=== PATIENT | male | born 1995 | race Caucasian/White ===

== ENCOUNTER → 2024-04-15 | Outpatient (CLI) | payer OTHER, SELFPAY ==
--- NOTE | 2024-04-15 07:22 | MRI_ITS ---
STUDY: MRI BRAIN WITH AND WITHOUT CONTRAST (ATTENTION INTERNAL AUDITORY CANALS - I.A.C.''s) REASON FOR EXAM: Male, 29 years old. [place]. ATTN: IAC TECHNIQUE: Standardized multiplanar fat and water weighted pulse sequences were obtained. 18 ML IV CLARISCAN was administered for the contrast portion of the examination. COMPARISON: None. FINDINGS: Normal bilateral temporal bones. Normal bilateral internal auditory canals. There is no demonstrated intracanalicular or cisternal vestibular schwannoma (acoustic neuroma). There is no enhancement of the bilateral VIIth or VIIIth cranial nerves. Normal bilateral cochlea, vestibules and semicircular canals. Normal size of the ventricles and extra-axial spaces for the patient''s age. Normal white matter tracts of the supratentorial brain. Normal bilateral basal ganglia. Normal thalami. Normal flow voids within the major intracranial circulation suggesting patency by spin echo criteria. Normal venous enhancement. There is no enhancing intra-axial or extra-axial abnormality. There is no extra-axial fluid accumulation. Normal sella turcica, pituitary gland, infundibular stalk, optic chiasm and hypothalamus. Normal tectal plate and pineal gland. Normal midbrain, marco and medulla. Normal cerebellum. Normal basal cisterns. No demonstrated orbital abnormality, within the constraints of a routine brain study. Normal visualized paranasal sinuses. Normal calvarium and skull base. Normal visualized soft tissue structures. Normal visualized upper cervical spine. MRI/Brain W/WO Contrast IMPRESSION: Normal unenhanced and enhanced MRI of the brain and bilateral internal auditory canals (I.A.C''s). Electronically Signed: Wally Benitez MD at 8:37 EDT ,
== END | disposition home or self-care (01) ==
PROVIDERS: Referring Provider Otolaryngology Otolaryngology/Facial Plastic Surgery; Visit Provider Otolaryngology Otolaryngology/Facial Plastic Surgery
DX: R27.0 Ataxia, unspecified (principal)
CPT/HCPCS: 70553; A9575

== ENCOUNTER → 2024-08-10 | Outpatient (CLI) | payer OTHER, SELFPAY ==
--- NOTE | 2024-08-10 16:28 | RAD_ITS ---
INDICATION: BACK PAIN EXAMINATION/TECHNIQUE: X-RAY - XR Spine Thoracic 2 Views COMPARISON: No relevant prior comparison study available FINDINGS: VERTEBRAE: Preserved vertebral body height. No fracture. No spondylolisthesis. Preservation of the normal thoracic kyphosis. Mild dextroscoliosis. DISCS: Disc spaces are maintained. INCLUDED CHEST/ABDOMEN: No acute abnormalities. RAD/Thoracic Spine 2 Views IMPRESSION: Dextroscoliosis of the thoracic spine. Electronically Signed: Armani Hercules MD at 13:26 EDT ,
--- NOTE | 2024-08-10 16:50 | RAD_ITS ---
INDICATION: neck pain EXAMINATION/TECHNIQUE: X-RAY - XR Spine Cervical 6 or More Views COMPARISON: No relevant prior comparison study available FINDINGS: VERTEBRAE: Preserved vertebral body height. No fracture. No spondylolisthesis. Straightening of the cervical spine. The alignment is unremarkable on the flexion and extension views. No significant facet arthropathy. DISCS: Disc spaces are maintained. NECK SOFT TISSUES: No prevertebral soft tissue widening. LUNG APICES: Clear. RAD/Cerv Spine Obl/Flex/Ext Comp IMPRESSION: Straightening of the cervical spine. Otherwise unremarkable examination.. Electronically Signed: Armani Hercules MD at 15:16 EDT ,
[2024-08-10 17:42] LABS: Absolute Lymphocyte Count 2.99 X10^3/uL (0.83-4.51); Basophil# 0.02 X10^3/uL; Basophil% 0.3 % (0-1); Eosinophil# 0.03 X10^3/uL; Eosinophils% 0.4 % (0-5); Hematocrit 41.6 % (40-54); Hemoglobin 13.7 g/dL (13.0-16.5); Lymphocyte # 2.99 X10^3/ul (0.83-4.51); Lymphocyte % 39.6 % (19-41); Mean Corp Hgb Conc 32.9 g/dL (32-36); Mean Corpuscular Hgb 29.8 pg (27.0-32.0); Mean Corpuscular Volume 90.6 fL (80-94); Mean Platelet Vol. 10.3 fl (6.2-12.0); Monocyte# 0.49 X10^3/uL; Monocyte% 6.5 % (0-10); NRBC Flagged by Analyzer 0 % (0-5); Neutrophil # 4.01 X10^3/uL (2.7-7.7); Neutrophil % 52.9 % (47-70); Platelet Count 241 K/mm3 (150-450); RBC Distribution Width CV 11.9 % (11.6-14.6); RBC Distribution Width SD 39.7 fl (35.1-43.9); Red Blood Count 4.59 M/mm3 (4.6-6.2); White Blood Count 7.6 K/mm3 (4.4-11.0)
[2024-08-10 18:15] LABS: Vitamin D,25 Hydroxy 25.7 ng/mL
[2024-08-10 18:23] LABS: ALB/GLOB Ratio 1.4 RATIO (0.9-2.4); AST(SGOT) 16 U/L (15-37); Alanine Aminotransfer ALT/SGPT 18 U/L (16-61); Albumin, Serum 4.2 g/dL (3.2-5.0); Alkaline Phosphatase 59 U/L (45-117); Anion Gap 5 (5-15); BUN 15 mg/dL (7-18); Chloride 108 mmol/L (98-107); Creatinine, Serum 1.07 mg/dL (0.70-1.30); EST Glomerular Filtration Rate 86 mL/min (>60); Est Glom Filt Rate - Afr Amer 103 mL/min (>60); Globulin 3.1 g/dL (2.2-4.2); Glucose 98 mg/dL (74-106); Potassium 3.7 mmol/L (3.5-5.1); Protein, Total 7.3 g/dL (6.4-8.2); Sodium Level 140 mmol/L (136-145)
== END | disposition home or self-care (01) ==
PROVIDERS: PCP Family Medicine; Referring Provider Family Medicine; Visit Provider Family Medicine
DX: M54.2 Cervicalgia (principal); M54.6 Pain in thoracic spine; R53.83 Other fatigue
CPT/HCPCS: 36415; 72052; 72070; 80053; 82306; 84443; 85025

== ENCOUNTER → 2024-08-16 | Outpatient (CLI) | payer OTHER, SELFPAY ==
[2024-08-18 14:09] LABS: Lyme Scn Total Ab w/Rflx Negative (Negative)
== END | disposition home or self-care (01) ==
LOC: MFPLAB 16:48
PROVIDERS: PCP Family Medicine; Referring Provider Family Medicine; Visit Provider Family Medicine
DX: T14.8XXA Other injury of unspecified body region, initial encounter (principal); W57.XXXA Bitten or stung by nonvenomous insect and other nonvenomous arthropods, initial encounter
CPT/HCPCS: 36415; 86618

== ENCOUNTER 2024-10-11 16:00 | Outpatient (RCR) | payer OTHER, SELFPAY ==
--- NOTE | 2024-08-19 17:03 | HP.PTEVAL_ITS ---
Patient's Visit Information Visit Information Visit Information: YOLANDA HIGGINS is a 29 year old M referred to Physical Therapy by Lucia Montes MD with a diagnosis of Neck pain. Date of Evaluation: 08/19/24 Physical Therapist: Rogelio Parsons, PT, ATC Visit Plan Frequency: 2x /Week Duration: 2-4 Weeks Plan: Postural edu, DTR, retractions, scap stab ex's, and HEP Subjective Subjective: Pt reports he has had neck and upper back pain since the beginning of the year. 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 Pt reports he has been treated by a chiropractor for 3 months, but no permanent improvements. Pt reports when his pain is bad, it will make his arms go numb. Pt reports he also gets severe headaches that start in the back of his head and radiates to the frontal region. Pt reports he has had x-rays which revealed a flattened curvature of the cervical spine. Pt reports sleep difficulty at this time secondary to pain. Pt also notes his arms will feel really weak when he is in a lot of pain. Pt reports he will get light headed and dizzy when his pain is bad. 5/10 pain at rest, 8/10 pain at worst Pain Neck pain: Pain Intensity (Out of 10): 5 Pain Intensity Range: 8 Objective Objective: Neuro: B UE sensation is WNL to light touch. B biceps reflex= 2/3 MMT: B UE's are grossly 4/5 throughout ROM: Pt has minimal limitations with retraction and extension. All other ROM is WFL. Repeated movements: protraction 10x3 increased pain. Retraction 10x3 NE Balance/Special Test Scores Oswestry Neck Score: 22 Goals Goal 1:: Decrease neck pain x 50% to aid with sleep Goal Time Frame: 4-6 Weeks Goal 2:: Increase cervical spine retraction ROM to WNL to aid with IADL's Goal Time Frame: 4-6 Weeks Goal 3:: Increase B UE strength x 1 grade to aid with work requirements Goal Time Frame: 4-6 Weeks Goal 4:: I with HEP Goal Time Frame: 4-6 Weeks Rehabilitation Potential Physical Therapy Diagnosis: Pt has neck pain, limited c/s ROM, and B UE radiculopathy secondary to cervical spine derangement Rehabilitation Potential: Good Anticipated Interventions Patient/Client Instruction: Educate patient on: Condition and Plan of Care For the Purpose of:: To improve self management Therapeutic Exercise to Include: Strength training, Postural training, Active ROM, Sindhu Exercises and Scapular Strength/Stabilization For the Purpose of:: To decrease pain, To increase ROM and To improve muscle performance and motor function Manual Therapy Techniques to Include: Soft tissue mobilization For the Purpose of:: To decrease pain Text: Thank you for the opportunity to evaluate your patient. For Medicare and Medicare HMO plans, please review the plan of care and approve it. It will need to be FAXED BACK to us at [phone] for Medicare purposes. For Medicare only, by signing this I certify the plan of care. Please let me know if there are questions or concerns regarding this plan of care. Physician Signature: Date:
--- NOTE | 2024-11-29 09:55 | HP.PT.NRP ---
Patient Information Patient Information: YOLANDA HIGGINS was seen in my office for initial evaluation on 08/19/24. The following Plan of Care was established for this patient: POC Established Initial Frequency: 2x /Week Initial Duration: 2-4 Weeks Anticipated Interventions Patient/Client Instruction: Educate patient on: Condition and Plan of Care For the Purpose of:: To improve self management Therapeutic Exercise to Include: Strength training, Postural training, Active ROM, Sindhu Exercises and Scapular Strength/Stabilization For the Purpose of:: To decrease pain, To increase ROM and To improve muscle performance and motor function Manual Therapy Techniques to Include: Soft tissue mobilization For the Purpose of:: To decrease pain Last Seen Last Seen: This patient was last seen in our office . Pertinent comments regarding their Physical therapy will appear below: Pt has not returned to physical therapy for greater than 30 days. Discontinue at this time. At this point I will be discontinuing this patient from physical therapy. I would be happy to see this patient again in the future if found appropriate by the physician. Thank you! Rogelio Parsons, PT, ATC Balance/Gait/Functional tests Balance/Special Test Scores Oswestry Neck Score: 22
== END 2024-10-11 19:00 | disposition home or self-care (01) ==
LOC: PT 16:00
PROVIDERS: PCP Family Medicine; Referring Provider Family Medicine; Visit Provider Family Medicine
DX: M54.2 Cervicalgia (principal)
CPT/HCPCS: 97035; 97110; 97140; 97161; 97530

== ENCOUNTER 2024-10-14 15:05 | Outpatient (CLI) | payer OTHER, SELFPAY ==
[2024-10-14 18:01] LABS: Vitamin D,25 Hydroxy 53.5 ng/mL
== END 2024-10-14 23:59 | disposition home or self-care (01) ==
LOC: MFPLAB 15:07
PROVIDERS: PCP Family Medicine; Referring Provider Family Medicine; Visit Provider Family Medicine
DX: R53.83 Other fatigue (principal)
CPT/HCPCS: 36415; 82306; 84403

== ENCOUNTER → 2024-11-03 | Outpatient (CLI) | payer OTHER, SELFPAY ==
--- NOTE | 2024-11-03 13:05 | NEURO ---
NCS and/or EMG Patient Report Ordering Doctor: Lucia Montes DATE OF SERVICE: 11/03/24 Olman presents electrodiagnostic testing of the right upper limb. He reports numbness and tingling in the right hand. Electrodiagnostic findings: Right median motor nerve demonstrates prolonged latency with normal amplitude and conduction velocity. Normal right ulnar motor response, including conduction across the elbow. Normal right median and right ulnar F?wave. Prolonged right median sensory latency at the wrist. Needle EMG testing was performed in the right upper limb. All muscles tested showed no evidence of denervation with normal motor unit action potentials. Electrodiagnostic impression: This is an abnormal study. 1. Electrodiagnostic findings suggestive of a right-sided median mononeuropathy. This is consistent with a mild right carpal tunnel syndrome. 2. Electrodiagnostic evidence is noted for cervical radiculopathy. Multi Select Codes Neurology Neurology Interp Codes: 89823-71 Musc test done w/n test comp (interp) and 28805-18 Nrv cndj tst 5-6 studies (interp)
== END | disposition home or self-care (01) ==
PROVIDERS: PCP Family Medicine; Referring Provider Family Medicine; Visit Provider Family Medicine
DX: M54.2 Cervicalgia (principal)
CPT/HCPCS: 95886; 95909

== ENCOUNTER → 2025-02-24 | Outpatient (CLI) | payer OTHER, SELFPAY ==
--- NOTE | 2025-02-24 06:17 | CT_ITS ---
PROCEDURE: SINUS/FACIAL BONE REASON FOR EXAM: SINUSITIS TECHNIQUE: CT of the paranasal sinuses without contrast. Coronal and Sagittal reconstruction series were provided. One or more dose reduction techniques were used (e.g., Automated exposure control, adjustment of the mA and/or kV according to patient size, use of iterative reconstruction technique). COMPARISON: None. FINDINGS: The paranasal sinuses appear well formed without wall thickening or sclerosis. A single thin synechia within the upper right and left maxillary sinuses. The paranasal sinuses otherwise are clear without mucoperiosteal thickening or air-fluid levels. Bilateral ostiomeatal complex, frontoethmoidal and sphenoethmoidal recesses are clear. No significant nasal septal deviation. The turbinates appear within limits. The orbits appear within limits. Infra temporal fossa fat appears preserved. Bilateral pterygopalatine foramen appear within limits. Bilateral fossa of Rosenmuller appears symmetric. The mastoids, middle ears and internal auditory canals appear within limits. TMJs appear normally located. CT/Sinus/Facial Bone IMPRESSION: No significant appearing sinus disease as above. Reading Location: [id number]
== END | disposition home or self-care (01) ==
LOC: CT 06:15
PROVIDERS: PCP Family Medicine; Referring Provider Otolaryngology; Visit Provider Otolaryngology
DX: J32.8 Other chronic sinusitis (principal)
CPT/HCPCS: 70486

== ENCOUNTER → 2025-04-01 | Outpatient (CLI) | payer OTHER, SELFPAY ==
[2025-04-01 11:01] LABS: Anion Gap 11 (5-15); BUN 17 mg/dL (4-19); BUN/Creat Ratio 15.9 RATIO (10-20); Calcium,Total 9.4 mg/dL (7.6-11.0); Carbon Dioxide 23.8 mmol/L (21.0-32.0); Chloride 106 mmol/L (98-108); Creatinine, Serum 1.09 mg/dL (0.70-1.20); EST Glomerular Filtration Rate 92 (>60); Glucose 99 mg/dL (70-99); Potassium 4.5 mmol/L (3.3-5.1); Sodium Level 141 mmol/L (133-145); Vitamin D,25 Hydroxy 36.7 ng/mL (30-100)
== END | disposition home or self-care (01) ==
LOC: MFPLAB 09:00
PROVIDERS: PCP Family Medicine; Referring Provider Family Medicine; Visit Provider Family Medicine
DX: R79.89 Other specified abnormal findings of blood chemistry (principal)
CPT/HCPCS: 36415; 80048; 82306

== ENCOUNTER 2025-04-23 07:07 | Outpatient (CLI) | payer OTHER, SELFPAY ==
--- OUTSIDE RECORDS SUMMARY | 2025-04-23 07:10 | XMS RPT_ITS | CCD ---
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 candidate for physical therapy and was discharged. Patient has seen a chiropractor and that made it start feeling better and stopped. He saw the chiropractor for 3 months going 2-3x per week. Patient states when his neck is flared up he is dizzy. Patient states the last week his neck and shoulder are more numb and tingling. Patient states it gets worse as the day goes on. Patient stats ice and heat does help a little. Patient is on Mobic and he don't think that its helping him. Patient is on a muscle relaxer as need and that helps but he is still having the tingling. Says that he has had issues picking up a pen and has dropped a pen out of his hand. Ortho Exam General General: Yes no acute distress Neurologic: Yes alert and Yes oriented x3 Spine SPINE TESTING CERVICAL THORACIC LUMBAR Musculoskeletal Strength 0=absent - 5=normal Details: Neurological exam of the upper extremities shows 5x5 power. Numbness of the right little finger, all other dermatomes normal. No hyperreflexia. Mary's negative. Mild midline and right paraspinal tenderness. Romberg's negative. Single leg stand shows decreased right sided balance. Coding Level of Care Code Off vis,est,level 4 Diagnoses Cervical radiculopathy M54.12 Time Spent (min) 35 Assessment and Plan Assessment and Plan (1) Cervical radiculopathy: Status: Acute Plan Again reviewed cervical MRI. MRI showed normal cervical spine. Again reviewed prior xrays which shows a lack of normal cervical lordosis. No instability on flexion/extension views. C3-4 shows slight disc degeneration with possible facet arthrosis, and possible reversal of lordosis at focused at that level. Explained imaging findings in detail. He seems to develop radicular pain going along the trapezius into the right shoulder and lateral proximal arm. Possibility of C3-4 radiculopathy was discussed. Patient is due to get trigger point ejections by Dr. Mcknight's office next week. Possibility of consideration of C3-4 epidural versus facet injection were discussed and may be considered. Patient continue with physical therapy modalities as tolerated. No surgical intervention at this time con (more content not included)... Normal [facility] Orthopedic Visit Reporton Orthopedic Visit Report [facility] [address] [place] [address] [address] [place] [address] OFFICE VISIT Date of Service: 09/15/24 MR#: [id number] Acct: [id number] Name: YOLANDA BUCK Rep #: [id number] : 1995 Provider: Dr. Rancho Fernando MD Age/Sex: 29/M Location: [facility] Status: Signed Intake Vital Signs 08/31/24 08:25 Height 6 ft Weight: 206 lb 4 oz BMI 27.9 Intake Visit Reasons: CERVICAL SPINE Accompanied by: Self Is patient in pain?: Yes Pain scale (1-10): 4 Allergies No Known Allergies Allergy (Unverified 09/15/24 08:30) Medications ???Medication ???Instructions ???Recorded ???Confirmed ???Type meloxicam 7.5 mg tablet 7.5 mg PO QDAY 08/31/24 09/15/24 History tizanidine 4 mg tablet mg PO 08/31/24 09/15/24 History PFSH Surgical History History of repair of anterior cruciate ligament of right knee Family History Father Cancer Prostate Social History household members: spouse Smoking Status: Never smoker alcohol intake: never HPI CERVICAL SPINE Details: This documentation accurately reflects the service provided and the decisions made by me, Dr. Rancho Fernando MD 09/15/24827. Part of today???s visit was documented by Bella JO , acting as scribe. YOLANDA BUCK is a 29 year old M here today for a MRI Review. Patient states the pain is about the same if not worse since the MRI. HPI from 08/31/24: YOLANDA BUCK is a 29 year old M here today for Cervical/Thoracic pain. Patient states the last 8-9 months he has been dealing with neck pain. Patient does have numbness and tingling that goes down his right arm. Patient states he does have some pain that goes down his right arm. Patient states that the numbness and tingling down his triceps to the elbow but sometimes down to his hand. Says that he will get occasional numbness and pain in his right leg as well. At night both his arms are going numb. Patient states that his shoulder and mid back (center right) is numb. No injury to his neck. Patient has never had injection in his neck and he started PT last week he did 2 sessions and it made his symptoms worse. He was told that he wasn't a good candidate for physical therapy and was discharged. Patient has seen a chiropractor and that made it start feeling better and stopped. He saw the chiropractor for 3 months going 2-3x per week. Patient states when his neck is flared up he is dizzy. Patient states the last week his neck and shoulder are more numb and tingling. Patient states it gets worse as the day goes on. Patient stats ice and heat does help a little. Patient is on Mobic and he don't think that its helping him. Patient is on a muscle relaxer as need and that helps but he is still having the tingling. Says that he has had issues picking up a pen and has dropped a pen out of his hand. Ortho Exam General General: Yes no acute distress Neurologic: Yes alert and Yes oriented x3 Spine SPINE TESTING CERVICAL THORACIC LUMBAR Musculoskeletal Strength 0=absent - 5=normal Details: Neurological exam of the upper extremities shows 5x5 power. Numbness of the right little finger, all other dermatomes normal. No hyperreflexia. Mary's negative. Mild midline and right paraspinal tenderness. Romberg's negative. Single leg stand shows decreased right sided balance. 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 MRI showed normal cervical spine. Again reviewed prior xrays which shows a lack of normal cervical lordosis. No instability on flexion/extension views. Explained imaging findings in detail. Due to the repetitive motion of his job and the numbness into his right ring finger and little finger, discussed the possibility of cubital tunnel syndrome. Rec ommend that he sleep with a sleeve or a pillow in his elbow to prevent elbow flexion at night and to use a bluetooth at work to prevent the amount of time his elbow is flexed at work when on the phone. Also recommend that he see physical therapy again to increase extensor neck strength. If after he tries the pillow or the brace for the cubital tunnel, if he continues to have numbness and tingling an EMG can be ordered at that time. Patient is established with Dr. Mcknight at pain management a (more content not included)... Normal [facility] MR C-SPINE W/Oon 09-14-2024 MR C-SPINE W/O EXAMINATION: MR C-SPINE W/O 09/14/2024 08:23 AM CLINICAL HISTORY: Cervical radicular pain. 29-year-old male with chronic cervical/thoracic pain, right arm numbness and tingling, bilateral arm numbness at night, and worsening symptoms despite physical therapy. ASSOCIATED DIAGNOSIS: Disease of spinal cord (HCC) ORDERING PROVIDER: SUZANNE [employer] NOTE: COMPARISON: None TECHNIQUE: Patient questionnaire was completed, and was reviewed by MRI personnel prior to the patient entering the scanner. Multiplanar, multisequence MR imaging of the cervical spine was performed without intravenous contrast. FINDINGS: Counting reference: Craniocervical junction. Anatomic variants: None. Alignment: Slight straightening of the usual cervical lordosis. Vertebral Body Height: Normal. Bone Marrow: No aggressive focal lesion or pathologic marrow infiltration. Cord: Normal signal intensity and morphology. Craniocervical Junction, Cervical Soft Tissues and Included Brain: Craniocervical junction and included structures of the posterior fossa are within normal limits. No dorsal paraspinous, paravertebral, or prevertebral fluid collection. C2-C3: No significant spinal canal or neural foraminal stenosis. C3-C4: No significant spinal canal or neural foraminal stenosis. C4-C5: No significant spinal canal or neural foraminal stenosis. C5-C6: No significant spinal canal or neural foraminal stenosis. C6-C7: No significant spinal canal or neural foraminal stenosis. C7-T1: No significant spinal canal or neural foraminal stenosis. IMPRESSION: Normal study. MACRO: None I have personally reviewed the images and agree with the resident's interpretation. Normal [facility] Orthopedic Visit Reporton Orthopedic Visit Report [facility] [address] [place] [id number] OFFICE VISIT Date of Service: 08/31/24 MR#: [id number] Acct: [id number] Name: YOLANDA BUCK Rep #: [id number] : 1995 Provider: PARI Hart Age/Sex: 29/M Location: [facility] Status: Signed Intake Vital Signs 08/31/24 08:25 Height 6 ft Weight: 206 lb 4 oz BMI 27.9 Intake Visit Reasons: CERVICAL/THORACIC Accompanied by: Is patient in pain?: Yes Pain scale (1-10): 4 Allergies No Known Allergies Allergy (Unverified 08/31/24 08:26) Medications ???Medication ???Instructions ???Recorded ???Confirmed ???Type meloxicam 7.5 mg tablet 7.5 mg PO QDAY 08/31/24 08/31/24 History tizanidine 4 mg tablet mg PO 08/31/24 08/31/24 History PFSH Surgical History (Updated 08/31/24 @ 08:27 by Bella Ross MA) History of repair of anterior cruciate ligament of right knee Family History (Updated 08/31/24 @ 08:28 by Bella Ross MA) Father Cancer Prostate Social History (Updated 08/31/24 @ 08:28 by Bella Ross MA) household members: spouse Smoking Status: Never smoker alcohol intake: never HPI CERVICAL/THORACIC Details: This documentation accurately reflects the service provided and the decisions made by me, PARI Hart 08/31/24 2910. Part of today???s visit was documented by Bella JO , acting as scribe. YOLANDA BUCK is a 29 year old M here today for Cervical/Thoracic pain. Patient states the last 8-9 months he has been dealing with neck pain. Patient does have numbness and tingling that goes down his right arm. Patient states he does have some pain that goes down his right arm. Patient states that the numbness and tingling down his triceps to the elbow but sometimes down to his hand. Says that he will get occasional numbness and pain in his right leg as well. At night both his arms are going numb. Patient states that his shoulder and mid back (center right) is numb. No injury to his neck. Patient has never had injection in his neck and he started PT last week he did 2 sessions and it made his symptoms worse. He was told that he wasn't a good candidate for physical therapy and was discharged. Patient has seen a chiropractor and that made it start feeling better and stopped. He saw the chiropractor for 3 months going 2-3x per week. Patient states when his neck is flared up he is dizzy. Patient states the last week his neck and shoulder are more numb and tingling. Patient states it gets worse as the day goes on. Patient stats ice and heat does help a little. Patient is on Mobic and he don't think that its helping him. Patient is on a muscle relaxer as need and that helps but he is still having the tingling. Says that he has had issues picking up a pen and has dropped a pen out of his hand. Ortho Exam General General: Yes no acute distress Neurologic: Yes alert and Yes oriented x3 Spine SPINE TESTING CERVICAL THORACIC LUMBAR Musculoskeletal Strength 0=absent - 5=normal Details: Neurological exam of the upper extremities shows 5x5 power. Numbness of the right little finger, all other dermatomes normal. No hyperreflexia. Mary's negative. Mild midline and right paraspinal tenderness. Romberg's negative. Single leg stand shows decreased right sided balance. Coding Level of Care Code Off vis,new,level 4 Diagnoses Cervical myelopathy with cervical radiculopathy G95.9; M54.12 Assessment and Plan Assessment and Plan (1) Cervical myelopathy with cervical radiculopathy: Status: Acute Orders: Orders Spine Cervical (Routine) Today G95.9 - Disease of spinal cord, unspecified Referrals Pain Management G95.9 - Disease of spinal cord, unspecified Plan Reviewed xrays today with the patient. Xrays shows a lack of normal cervical lordosis. No instability on flexion/extension views. No MRI. Explained imaging findings in detail. Due the patient's symptoms of loss of dexterity with dropping objects out of his hand such as a pen and the physical exam finding of poor balance on the right side which has worsened over the last several weeks, along with his right sided neck pain and arm pain, there is a concern for cervical myelopathy and an MRI is warranted at this time to further evaluate. He has been having this pain for the last 8-9 months but his symptoms have worsened in the last week. He has tried PT however he was only able to go to 2 sessions due to increased pain and was told by PT that he wasn't a good candidate for therapy. He had seen a chiropractor for 3 months going 2-3 times per week at the onset of his symptoms. Recommended that he see pain management for injections for the pain. Also recommend that he take the 7.5mg Mobic 2x per day and he can supplement this with Tylenol (more content not included)... Normal [facility] Inital Evaluation (1) - PTon 08-19-2024 Inital Evaluation (1) - PT [facility] [address] [place] [address]. [address] [place] [address] / [facility]ATION SERVICES INITIAL EVALUATION MR#: [id number] Acct: [id number] Name: YOLANDA BUCK Rep #: [id number] : 1995 29 From: Rogelio Parsons PT, ATC Referring Dr.: Dr. Lucia Montes MD Status: REG RCR Insurance: [facility] SEL[employer] PAY INSURANCE Patient's Visit Information Visit Information Visit Information: YOLANDA BUCK is a 29 year old M referred to Physical Therapy by Lucia Montes MD with a diagnosis of Neck pain. Date of Evaluation: 08/19/24 Physical Therapist: Rogelio aPrsons, PT, ATC Visit Plan Frequency: 2x /Week Duration: 2-4 Weeks Plan: Postural edu, DTR, retractions, scap stab ex's, and HEP Subjective Subjective: Pt reports he has had neck and upper back pain since the beginning of the year. 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 Pt reports he has been treated by a chiropractor for 3 months, but no permanent improvements. Pt reports when his pain is bad, it will make his arms go numb. Pt reports he also gets severe headaches that start in the back of his head and radiates to the frontal region. Pt reports he has had x-rays which revealed a flattened curvature of the cervical spine. Pt reports sleep difficulty at this time secondary to pain. Pt also notes his arms will feel really weak when he is in a lot of pain. Pt reports he will get light headed and dizzy when his pain is bad. 5/10 pain at rest, 8/10 pain at worst Pain Neck pain: Pain Intensity (Out of 10): 5 Pain Intensity Range: 8 Objective Objective: Neuro: B UE sensation is WNL to light touch. B biceps reflex= 2/3 MMT: B UE's are grossly 4/5 throughout ROM: Pt has minimal limitations with retraction and extension. All other ROM is WFL. Repeated movements: protraction 10x3 increased pain. Retraction 10x3 NE Balance/Special Test Scores Oswestry Neck Score: 22 Goals Goal 1:: Decrease neck pain x 50% to aid with sleep Goal Time Frame: 4-6 Weeks Goal 2:: Increase cervical spine retraction ROM to WNL to aid with IADL's Goal Time Frame: 4-6 Weeks Goal 3:: Increase B UE strength x 1 grade to aid with work requirements Goal Time Frame: 4-6 Weeks Goal 4:: I with HEP Goal Time Frame: 4-6 Weeks Rehabilitation Potential Physical Therapy Diagnosis: Pt has neck pain, limited c/s ROM, and B UE radiculopathy secondary to cervical spine derangement Rehabilitation Potential: Good Anticipated Interventions Patient/Client Instruction: Educate patient on: Condition and Plan of Care For the Purpose of:: To improve self management Therapeutic Exercise to Include: Strength training, Postural training, Active ROM, Sindhu Exercises and Scapular Strength/Stabilization For the Purpose of:: To decrease pain, To increase ROM and To improve muscle performance and motor function Manual Therapy Techniques to Include: Soft tissue mobilization For the Purpose of:: To decrease pain Text: Thank you for the opportunity to evaluate your patient. For Medicare and Medicare HMO plans, please review the plan of care and approve it. It will need to be FAXED BACK to us at [phone] for Medicare purposes. For Medicare only, by signing this I certify the plan of care. Please let me know if there are questions or concerns regarding this plan of care. Physician Signature: Date:__ 08/19/24 1703 CC: Dr. Lucia Montes MD [facility] Signed Normal [facility] Lyme Screen W/Reflex WBon LYME SCREEN Ab Negative Normal Negative [facility] Comment on above: Result Comment: Lyme antibodies not detected. Reflex testing is not indicated. No laboratory evidence of infection with B. burgdorferi (Lyme disease). Negative results may occur in patients recently infected (less than or equal to 14 days) with B. burgdorferi. If recent infection is suspected, repeat testing on a new sample collected in 7 to 14 days is recommended. Performed at: - [address] [id number] Partner Alliance Manager: Lio Glynn PhD, Phone: [phone] Performed By: #### L 5771.0983 #### [facility] [address] [place], [address] CBC W/Diff, Automatedon 07-21 Absolute Lymph 2.99 X10 3/uL Normal 0.83-4.51 [facility] Comment on above: Performed By: #### L 506.1000, L501.9520, L100.0100, L500.4050 ####[facility] [address] [place], [address] Absolute Neut 4.0 X10 3/uL Normal 2.0-7.7 [facility] Comment on above: Performed By: #### L 506.1000, L501.9520, L100.0100, L500.4050 ####[facility] [address] [place], [address] Basophils/100 WBC (Bld) 0.3 % Normal 0-1 [facility] Comment on above: Performed By: #### L 506.1000, L501.9520, L100.0100, L500.4050 ####[facility] [address] [place], [address] Eosinophils/100 WBC (Bld) 0.4 % Normal 0-5 [facility] Comment on above: Performed By: #### L 506.1000, L501.9520, L100.0100, L500.4050 ####[facility] [address] [place], [address] Erythrocyte distribution width (RBC) [Ratio] 11.9 % Normal 11.6-14.6 [facility] Comment on above: Performed By: #### L 506.1000, L501.9520, L100.0100, L500.4050 ####[facility] [address] [place], [address] Hematocrit (Bld) [Volume fraction] 41.6 % Normal 40-54 [facility] Comment on above: Performed By: #### L 506.1000, L501.9520, L100.0100, L500.4050 ####[facility] [address] [place], [address] Hemoglobin (Bld) [Mass/Vol] 13.7 g/dL Normal 13.0-16.5 [facility] Comment on above: Performed By: #### L 506.1000, L501.9520, L100.0100, L500.4050 ####[facility] [address] [place], [address] IG% 0.300 Normal 0.0-0.9 [facility] Comment on above: Result Comment: IG% - Immature Granulocytes (promyelocytes, myelocytes and metamyelocytes) > 1% indicates that a LEFT SHIFT is Present. Performed By: #### L 506.1000, L501.9520, L100.0100, L500.4050 ####[facility] [address] [place], [address] Lymphocytes/100 WBC (Bld) 39.6 % Normal 19-41 [facility] Comment on above: Performed By: #### L 506.1000, L501.9520, L100.0100, L500.4050 ####[facility] [address] [place], [address] MCH (RBC) [Entitic mass] 29.8 pg Normal 27.0-32.0 [facility] Comment on above: Performed By: #### L 506.1000, L501.9520, L100.0100, L500.4050 ####[facility] [address] [place], [address] MCHC (RBC) [Mass/Vol] 32.9 g/dL Normal 32-36 [facility] Comment on above: Performed By: #### L 506.1000, L501.9520, L100.0100, L500.4050 ####[facility] [address] [place], [address] MCV (RBC) [Entitic vol] 90.6 fL Normal 80-94 [facility] Comment on above: Performed By: #### L 506.1000, L501.9520, L100.0100, L500.4050 ####[facility] [address] [place], [address] Monocytes/100 WBC (Bld) 6.5 % Normal 0-10 [facility] Comment on above: Performed By: #### L 506.1000, L501.9520, L100.0100, L500.4050 ####[facility] [address] [place], [address] Neutrophils/100 WBC (Bld) 52.9 % Normal 47-70 [facility] Comment on above: Performed By: #### L 506.1000, L501.9520, L100.0100, L500.4050 ####[facility] [address] [place], [address] Nucleated RBC (Bld) [#/Vol] 0 10*3/uL Normal 0-5 [facility] Comment on above: Performed By: #### L 506.1000, L501.9520, L100.0100, L500.4050 ####[facility] [address] [place], [address] Platelet mean volume (Bld) [Entitic vol] 10.3 fL Normal 6.2-12.0 [facility] Comment on above: Performed By: #### L 506.1000, L501.9520, L100.0100, L500.4050 ####[facility] [address] [place], [address] Platelets (Bld) [#/Vol] 241 10*3/uL Normal 150-450 [facility] Comment on above: Performed By: #### L 506.1000, L501.9520, L100.0100, L500.4050 ####[facility] [address] [place], [address] RBC (Bld) [#/Vol] 4.59 10*6/uL Low 4.6-6.2 [facility] Comment on above: Performed By: #### L 506.1000, L501.9520, L100.0100, L500.4050 ####[facility] [address] [place], [address] RDW SD 39.7 fl Normal 35.1-43.9 [facility] Comment on above: Performed By: #### L 506.1000, L501.9520, L100.0100, L500.4050 ####[facility] [address] [place], [address] WBC (Bld) [#/Vol] 7.6 10*3/uL Normal 4.4-11.0 [facility] Comment on above: Performed By: #### L 506.1000, L501.9520, L100.0100, L500.4050 ####[facility] [address] [place], [address] Cerv Spine Obl/Flex/Ext Comp on 08-10-2024 Cerv Spine Obl/Flex/Ext Comp [facility] Imaging Services [address] [address] Cerv Spine Obl/Flex/Ext Comp MR#: [id number] Acct: [id number] Name: YOLANDA BUCK Rep #: [id number] : 1995 M 29 From: [employer] PCP: Dr. Lucia Montes MD Status: [facility] Study: Cerv Spine Obl/Flex/Ext Comp Date of Exam: Exam# [id number] Ordering Dr: Lucia Montes [place] [id number] INDICATION: neck pain EXAMINATION/TECHNIQUE: X-RAY - XR Spine Cervical 6 or More Views COMPARISON: No relevant prior comparison study available FINDINGS: VERTEBRAE: Preserved vertebral body height. No fracture. No spondylolisthesis. Straightening of the cervical spine. The alignment is unremarkable on the flexion and extension views. No significant facet arthropathy. DISCS: Disc spaces are maintained. NECK SOFT TISSUES: No prevertebral soft tissue widening. LUNG APICES: Clear. RAD/Cerv Spine Obl/Flex/Ext Comp IMPRESSION: Straightening of the cervical spine. Otherwise unremarkable examination.. Electronically Signed: Armani Hercules MD at 15:16 EDT , CC: Dr. 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, [address] Albumin/Globulin [Mass ratio] 1.4 {ratio} Normal 0.9-2.4 [facility] Comment on above: Performed By: #### L 506.1000, L501.9520, L100.0100, L500.4050 ####[facility] [address] [place], [address] ALK P 59 U/L Normal 45-117 [facility] Comment on above: Performed By: #### L 506.1000, L501.9520, L100.0100, L500.4050 ####[facility] [address] [place], [address] ALT [Catalytic activity/Vol] 18 U/L Normal 16-61 [facility] Comment on above: Performed By: #### L 506.1000, L501.9520, L100.0100, L500.4050 ####[facility] [address] [place], [address] AST [Catalytic activity/Vol] 16 U/L Normal 15-37 [facility] Comment on above: Performed By: #### L 506.1000, L501.9520, L100.0100, L500.4050 ####[facility] [address] [place], [address] Bilirubin [Mass/Vol] 0.60 mg/dL Normal 0.20-1.00 [facility] Comment on above: Result Comment: For patients on eltrombopag therapy, use of Dimension [place] TBIL is not recommended. Performed By: #### L 506.1000, L501.9520, L100.0100, L500.4050 ####[facility] [address] [place], [address] BUN/CRE 14.0 RATIO Normal 10-20 [facility] Comment on above: Performed By: #### L 506.1000, L501.9520, L100.0100, L500.4050 ####[facility] [address] [place], [address] CA,Total 9.0 mg/dL Normal 8.5-10.1 [facility] Comment on above: Performed By: #### L 506.1000, L501.9520, L100.0100, L500.4050 ####[facility] [address] [place], [address] Chloride [Moles/Vol] 108 mmol/L High 98-107 [facility] Comment on above: Performed By: #### L 506.1000, L501.9520, L100.0100, L500.4050 ####[facility] [address] [place], [address] CO2 [Moles/Vol] 27.0 mmol/L Normal 21.0-32.0 [facility] Comment on above: Performed By: #### L 506.1000, L501.9520, L100.0100, L500.4050 ####[facility] [address] [place], [address] Creatinine [Mass/Vol] 1.07 mg/dL Normal 0.70-1.30 [facility] Comment on above: Result Comment: The validity of the calculated GFR GFRAA in patients over 70 years has not been determined. Clinical correlation is essential. Performed By: #### L 506.1000, L501.9520, L100.0100, L500.4050 ####[facility] [address] [place], [address] EST GFR - AA 103 mL/min Normal >60 [facility] Comment on above: Result Comment: Afri can [place]raini GFR Calc Performed By: #### L 506.1000, L501.9520, L100.0100, L500.4050 ####[facility] [address] [place], [address] GAP 5 Normal 5-15 [facility] Comment on above: Performed By: #### L 506.1000, L501.9520, L100.0100, L500.4050 ####[facility] [address] [place], [address] GFR/1.73 sq M.predicted among non-blacks MDRD (S/P/Bld) [Vol rate/Area] 86 mL/min/{1.73_m2} Normal >60 [facility] Comment on above: Result Comment: Non- GFR Calc Performed By: #### L 506.1000, L501.9520, L100.0100, L500.4050 ####[facility] [address] [place], [address] Globulin (S) [Mass/Vol] 3.1 g/dL Normal 2.2-4.2 [facility] Comment on above: Performed By: #### L 506.1000, L501.9520, L100.0100, L500.4050 ####[facility] [address] [place], [address] Glucose [Mass/Vol] 98 mg/dL Normal 74-106 [facility] Comment on above: Performed By: #### L 506.1000, L501.9520, L100.0100, L500.4050 ####[facility] [address] [place], [address] Potassium [Moles/Vol] 3.7 mmol/L Normal 3.5-5.1 [facility] Comment on above: Performed By: #### L 506.1000, L501.9520, L100.0100, L500.4050 ####[facility] [address] [place], [address] Sodium [Moles/Vol] 140 mmol/L Normal 136-145 [facility] Comment on above: Performed By: #### L 506.1000, L501.9520, L100.0100, L500.4050 ####[facility] [address] [place], [address] T PROT 7.3 g/dL Normal 6.4-8.2 [facility] Comment on above: Performed By: #### L 506.1000, L501.9520, L100.0100, L500.4050 ####[facility] [address] [place], [address] Urea nitrogen [Mass/Vol] 15 mg/dL Normal 7-18 [facility] Comment on above: Performed By: #### L 506.1000, L501.9520, L100.0100, L500.4050 ####[facility] [address] [place], [address] Thoracic Spine 2 Viewson Thoracic Spine 2 Views [facility] Imaging Services [address] [place] [address] Thoracic Spine 2 Views MR#: [id number] Acct: [id number] Name: YOLANDA BUCK Rep #: [id number] : 1995 M 29 From: Armani Covington PCP: Dr. Lucia Montes MD Status: REG CLI Study: Thoracic Spine 2 Views Date of Exam: 08/10/24 Exam# [id number] Ordering Dr: Lucia Montes MD [id number] INDICATION: BACK PAIN EXAMINATION/TECHNIQUE: X-RAY - XR Spine Thoracic 2 Views COMPARISON: No relevant prior comparison study available FINDINGS: VERTEBRAE: Preserved vertebral body height. No fracture. No spondylolisthesis. Preservation of the normal thoracic kyphosis. Mild dextroscoliosis. DISCS: Disc spaces are maintained. INCLUDED CHEST/ABDOMEN: No acute abnormalities. RAD/Thoracic Spine 2 Views IMPRESSION: Dextroscoliosis of the thoracic spine. Electronically Signed: Armani Hercules MD at 13:26 EDT , CC: Dr. 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 [place], [place], [address] Vitamin D,25 Hydroxyon 08-10 Vitamin D 25-OH 25.7 ng/mL Normal [facility] Comment on above: Result Comment: Amanda min D 25(OH) Status Range Deficiency <20 ng/mL (50nmol/L) Insufficiency 20 - 30 ng/mL (50 - 75 nmol/L) Sufficiency 30 - 100 ng/mL (75 - 250 nmol/L) Toxicity >100 ng/mL (>250 nmol/L) Performed By: #### L 506.1000, L501.9520, L100.0100, L500.4050 ####[facility] [address] [place], [address] 36on 06-11-2023 36 Spoke to patient, arline lamb father Oscar will pick these up for him. [facility] 36 See new TE patient needs to excelsior picker a copy of labs. [facility] 36 Spoke to patient, arline lamb father Oscar will be picking these up for him. [facility] 36 Name of caller: Yolanda Buck Contact phone number: [phone] Relationship to Patient: Patient Provider: Maximo Mathis Practice: [facility] Chief Complaint/Reason for Call: Caller is needing his blood results re sent to a different email: [email or web address] Best time of day caller can be reached: any Patient advised that office/PCP has 24-48 business hours to return their call: yes [facility] 36on 06-10-2023 36 Name of caller: yolanda Contact phone number: [phone] Relationship to Patient: patient Provider: Dr. mathis Practice: [facility] Chief Complaint/Reason for Call: pt called in would like to excelsior picker a copy of lab results, can not send to his job from his email, please call and advise when printed off and ready for excelsior picker Best time of day caller can be reached: AM Patient advised that office/PCP has 24-48 business hours to return their call: Yes [facility] Check Orthostatic Vital Sign son 06-06-2023 Interpretation and review of laboratory results Abnormal [facility] Orthostatic Blood Pressure Laying 124/70 55 Standing 112/74 67 Standing 98/78 83 [facility] Office Visiton 06-06-2023 Follow-up visit [id number] Yolanda Buck 1995 M Date Provider Department Center 06/06/2023 [facility] RIVAS [facility] Family History Problem Relation Age of Onset No Known Problems Mother Hypertension Father Hyperlipidemia Father No Known Problems Brother Stroke Father's Brother No Known Problems Maternal Grandmother Family Status - Relation Status Age at Mother Alive Father Alive Brother Alive Father's Brother Alive Maternal Grandmother Alive Level of Service:63328 OR INITIAL PREVENTIVE MEDICINE NEW PT AGE 18-39YRS Reason for Visit and Comments: New Patient [542] Dizziness [702321] Labs Only [794206] Annual Exam [83] [facility] PATINSon 06-06-2023 PATINS Increase salt intake , increase fluid intake up to 2.5 L daily. [facility] Progress Noteon 06-06-2023 Progress Note Orthostatic blood pressures + , check cmp, cbc, increase sodium and water intake up to 2.5 L daily. [facility] Progress Note 06/06/2023 Yolanda Buck (: 1995) is a 28 y.o. male , New patient, here for evaluation of the following chief complaint(s): New Patient, Dizziness, Labs Only, and Annual Exam ASSESSMENT/PLAN: 1. Annual physical exam - HIV-1 and HIV-2 Antigen-Antibody Screen - Hepatitis C antibody - Comprehensive metabolic panel - CBC - Lipid panel 2. Orthostatic hypotension Assessment & Plan: Orthostatic blood pressures + , check cmp, cbc, increase sodium and water intake up to 2.5 L daily. 3. Orthostatic lightheadedness Assessment & Plan: Orthostatic blood pressures + , check cmp, cbc, increase sodium and water intake up to 2.5 L daily. Orders: - Check Orthostatic Vital Signs 4. Screening for cholesterol level - Lipid panel 5. Screening for deficiency anemia - CBC 6. Need for hepatitis C screening test - Hepatitis C antibody 7. Screening for HIV (human immunodeficiency virus) - HIV-1 and HIV-2 Antigen-Antibody Screen Follow up for as directed pending test results. SUBJECTIVE/OBJECTIVE: HPI - Yolanda Buck presents as new patient, previous primary care provider Abdelrahman, last seen ?prior to 2014 by previous provider. Specialists/other providers? No Chief complaint(s): New Patient, Dizziness, Labs Only, and Annual Exam [facility] for about 11 years, , expecting 1st child in July. Has 2 dogs at home and 's bird. family hx htn,hypercholesterolem ia, melanoma, stroke. non smoker, no etoh, exercises 5 d a week, eats generally healthy, has noticed over the past year when going from squat position or bending over and standing up that he is getting lightheaded after bending over. Quickly resolves. Reports drinking plenty of fluids. No chest pain, shortness of breath, or heart palpitations. Feels fine otherwise. History reviewed. No pertinent past medical history. Past Surgical History: Procedure Laterality Date ANTERIOR CRUCIATE LIGAMENT REPAIR Right 2009 Family History Problem Relation Name Age of Onset No Known Problems Mother Karlee Hypertension Father Oscar Hyperlipidemia Father Oscar No Known Problems Brother Jacob Stroke Father's Brother No Known Problems Maternal Grandmother Yakov Social History Socioeconomic History Marital status: Spouse name: Not on file Number of children: Not on file Years of education: Not on file Highest education level: Not on file Occupational History Not on file Tobacco Use Smoking status: Never Smokeless tobacco: Never Vaping Use Vaping Use: Never used Substance and Sexual Activity Alcohol use: Yes Alcohol/week: 2.0 standard drinks of alcohol Drug use: Never Sexual activity: Yes Partners: Female Other Topics Concern Not on file Social History Narrative - is jalyn, aug 03 expecting son, 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 Lives in [facility] [place]. Social Determinants of Health Financial Resource Strain: Not on file Food Insecurity: Not on file Transportation Needs: Not on file Physical Activity: Not on file Stress: Not on file Social Connections: Not on file Intimate Partner Violence: Not on file Housing Stability: Not on file Prior to Admission medications Not on File Review of Systems Constitutional: Negative for activity change, appetite change, chills, diaphoresis, fatigue, fever and unexpected weight change. HENT: Negative. Eyes: Negative for visual disturbance. Last eye exam last year Respiratory: Negative for cough, chest tightness, shortness of breath and wheezing. Cardiovascular: Negative for chest pain, palpitations and leg swelling. Gastrointestinal: Negative for abdominal pain, blood in stool, constipation, diarrhea, nausea and vomiting. Genitourinary: Negative for difficulty urinating. Musculoskeletal: Positive for arthralgias (right knee occasional- hx of injury). Skin: Negative. Neurological: Positive for dizziness and light-headedness. Negative for tremors, seizures, syncope, weakness, numbness and headaches. Psychiatric/Behavioral : Negative. Vitals: 06/06/23 0806 BP: 100/64 Pulse: 55 Resp: 16 Temp: 37.1 ?C (98.7 ?F) TempSrc: Oral SpO2: 100% Weight: 197 lb 6.4 oz (89.5 kg) Height: 6' 0.05" (1.83 m) Physical Exam Vitals reviewed. Constitutional: General: He is not in acute distress. Appearance: Normal appearance. He is normal weight. He is not ill-appearing or toxic-appearing. HENT: Head: Normocephalic and atraumatic. Right Ear: Tympanic membrane, ear canal and external ear normal. There is no impacted cerumen. Left Ear: Tympanic membrane, ear canal and external ear normal. There is no impacted cerumen. Nose: Nose normal. No congestion or rhinorrhea. Mouth/Throat: Mouth: Mucous membranes are moist. Pharynx: Oropharynx is clear. No oropharyngeal exudate or posterior oroph (more content not included)... [facility] Progress Note Orthostatic Blood Pressure Laying 124/70 55 Standing 112/74 67 Standing 98/78 83 [facility] 36on 06-02-2023 36 S: The patient is calling the [facility] about B: This has been present for several month A: This has gotten worse over the last week or so. There are times when he feels near syncopal. He will sit down and it goes away. He has a job where he stands long periods of time without moving. He is supposed to have blood work with his company and he feels this is too quick for him - they don't look carefully enough. No chest pain or shortness of breath. He never has racing heart symptoms. R: New patient appointment made, address provided and insurance verified. Reason for Disposition [1] MODERATE dizziness (e.g., interferes with normal activities) AND [2] has been evaluated by physician for this Protocols used: Dizziness - Lightheadedness-ADULT- AH [facility] Vital Signs Date Time Vital Sign Value Performing Clinician Facility 12-06-2024 15:24-0500 Body height 182.88 cm Lucia Montes MD Work Phone: [facility] 12-06-2024 15:24-0500 Body mass index (BMI) [Ratio] 27.2 kg/m2 Lucia Montes MD Work Phone: [facility] 12-06-2024 15:24-0500 Body temperature 98.6 [degF] Lucia Montes MD Work Phone: [facility] 12-06-2024 15:24-0500 Body weight 91.17 kg Lucia Montes MD Work Phone: [facility] 12-06-2024 15:24-0500 Diastolic blood pressure 76 mm[Hg] Lucia Montes MD Work Phone: [facility] 12-06-2024 15:24-0500 Heart rate 96 /min Lucia Montes MD Work Phone: [facility] 12-06-2024 15:24-0500 Respiratory rate 16 /min Lucia Montes MD Work Phone: [facility] 12-06-2024 15:24-0500 SaO2% (BldA) [Mass fraction] 99 % Lucia Montes MD Work Phone: [facility] 12-06-2024 15:24-0500 Systolic blood pressure 124 mm[Hg] Lucia Montes MD Work Phone: [facility] 03-29-2024 15:54-0400 Body mass index (BMI) [Ratio] 26.34 kg/m2 Sruthi Keys DO Work Phone: [facility] 03-29-2024 15:54-0400 Body temperature 98.1 [degF] Sruthi Keys DO Work Phone: [facility] 03-29-2024 15:54-0400 Body weight 88.09 kg Sruthi Keys DO Work Phone: [facility] 03-29-2024 15:54-0400 Diastolic blood pressure 69 mm[Hg] Sruthi Mesko DO Work Phone: [facility] 03-29-2024 15:54-0400 Heart rate 74 /min Sruthi Gomesko DO Work Phone: [facility] 03-29-2024 15:54-0400 Respiratory rate 16 /min Sruthi Gomesko DO Work Phone: [facility] 03-29-2024 15:54-0400 SaO2% (BldA) [Mass fraction] 98 % Sruthi Gomesko DO Work Phone: [facility] 03-29-2024 15:54-0400 Systolic blood pressure 135 mm[Hg] Sruthi Keys DO Work Phone: [facility] 03-12-2024 11:30-0400 Body mass index (BMI) [Ratio] 26.27 kg/m2 Mireya Tyler MD Work Phone: [facility] 03-12-2024 11:30-0400 Body temperature 98.01 [degF] Mireya Tyler MD Work Phone: [facility] 03-12-2024 11:30-0400 Body weight 87.86 kg Mireya Tyler MD Work Phone: [facility] 03-12-2024 11:30-0400 Diastolic blood pressure 69 mm[Hg] Mireya Tyler MD Work Phone: [facility] 03-12-2024 11:30-0400 Heart rate 64 /min Mireya Tyler MD Work Phone: [facility] 03-12-2024 11:30-0400 SaO2% (BldA) [Mass fraction] 98 % Mireya Tyler MD Work Phone: [facility] 03-12-2024 11:30-0400 Systolic blood pressure 111 mm[Hg] Mireya Tyler MD Work Phone: [facility] 02-25-2024 10:56-0400 Body mass index (BMI) [Ratio] 25.47 kg/m2 Sruthi Eliseoko DO Work Phone: [facility] 02-25-2024 10:56-0400 Body temperature 98.01 [degF] Sruthi Mesko DO Work Phone: [facility] 02-25-2024 10:56-0400 Body weight 85.19 kg Sruthi Mesko DO Work Phone: [facility] 02-25-2024 10:56-0400 Diastolic blood pressure 82 mm[Hg] Sruthi Mesko DO Work Phone: [facility] 02-25-2024 10:56-0400 Heart rate 92 /min Sruthi Mesko DO Work Phone: [facility] 02-25-2024 10:56-0400 Respiratory rate 16 /min Sruthi Mesko DO Work Phone: [facility] 02-25-2024 10:56-0400 SaO2% (BldA) [Mass fraction] 98 % Sruthi Mesko DO Work Phone: [facility] 02-25-2024 10:56-0400 Systolic blood pressure 122 mm[Hg] Sruthi Mesko DO Work Phone: [facility] 02-17-2024 10:41-0400 Diastolic blood pressure 79 mm[Hg] Sruthi Mesko DO Work Phone: [facility] 02-17-2024 10:41-0400 Heart rate 107 /min Sruthi Mesko DO Work Phone: [facility] 02-17-2024 10:41-0400 Systolic blood pressure 121 mm[Hg] Sruthi Mesko DO Work Phone: [facility] 02-17-2024 10:33-0400 Body height 182.9 cm Sruthi Mesko DO Work Phone: [facility] 02-17-2024 10:33-0400 Body mass index (BMI) [Ratio] 26.65 kg/m2 Sruthi Mesko DO Work Phone: [facility] 02-17-2024 10:33-0400 Body temperature 98.91 [degF] Sruthi Gomesko DO Work Phone: [facility] 02-17-2024 10:33-0400 Body weight 89.13 kg Sruthi Keys DO Work Phone: [facility] 02-17-2024 10:33-0400 Respiratory rate 14 /min Sruthi Gomesko DO Work Phone: [facility] 02-17-2024 10:33-0400 SaO2% (BldA) [Mass fraction] 98 % Sruthi Gomesko DO Work Phone: [facility] 06-06-2023 09:12-0400 Diastolic blood pressure 78 mm[Hg] Brooklyn Bridenthal [employer] Work Phone: [place] 06-06-2023 09:12-0400 Heart rate 83 /min Brooklyn Bridenthal [employer] Work Phone: [facility] 06-06-2023 09:12-0400 Systolic blood pressure 98 mm[Hg] Brooklyn Bridenthal [employer] Work Phone: [facility] 06-06-2023 08:06-0400 Body height 183 cm Brooklyn Bridenthal [employer] Work Phone: [facility] 06-06-2023 08:06-0400 Body mass index (BMI) [Ratio] 26.74 kg/m2 Brooklyn Bridenthal [employer] Work Phone: [facility] 06-06-2023 08:06-0400 Body temperature 98.71 [degF] Brooklyn Bridenthal [employer] Work Phone: [facility] 06-06-2023 08:06-0400 Body weight 89.54 kg Brooklyn Bridenthal [employer] Work Phone: [facility] 06-06-2023 08:06-0400 Respiratory rate 16 /min Brooklyn Patel [employer] Work Phone: [facility] 06-06-2023 08:06-0400 SaO2% (BldA) [Mass fraction] 100 % Brooklyn Patel [employer] Work Phone: [facility] Encounters Encounter Date Encounter Type Care Provider Facility Start: [facility] Start: 04-01-2025 End: 04-01-2025 ambulatory Lucia Montes MD Work Phone: [facility] Work Phone: Start: 04-01-2025 End: 04-01-[address] Lucia Montes MD -[facility] Start: 04-01-2025 End: 04-01-2025 ambulatory Lucia [facility] Facility:[facility] Start: 02-24-2025 End: 02-24-2025 ambulatory Lucia Montes MD Work Phone: [facility] Work Phone: Start: 02-24-2025 End: 02-24-[address] Carlos Javier MD -[facility] Work Phone: Start: 02-24-2025 End: 02-24-2025 ambulatory Carlos Javier Facility:[facility] Start: 12-06-2024 End: 12-06-[address] Valeriano Trujillo MD -[facility] Work Phone: Start: 12-06-2024 End: 12-06-2024 ambulatory [facility] Facility:[facility] Start: 11-10-2024 End: 11-11-2024 Chart abstracting Satish Quiñonez MD Work Phone: Neurology Start: 11-03-2024 [facility] Start: 11-03-2024 Non-patient / Non-visit Dr. Mary Lou duff MD -[facility] Start: 11-03-2024 End: 11-03-[address] Lucia Montes MD -Pulmonary Services/Neurology Work Phone: Start: 11-03-2024 End: 11-03-2024 ambulatory Chalon Simon Facility:[facility] Start: 10-14-2024 End: 10-14-2024 ambulatory Chalon Simon Facility:[facility] Start: 10-11-2024 End: 10-11-2024 ambulatory Chalon Simon Facility:[facility] Start: 10-06-2024 ambulatory Chalon Simon Facility:[facility] Start: 09-30-2024 End: 09-30-2024 ambulatory Chalon Simon Facility:[facility] Start: 09-15-2024 End: 09-15-2024 ambulatory Chalon Simon Facility:[facility] Start: 09-14-2024 End: 09-14-2024 ambulatory UNKNOWN PROVIDER Facility:[facility] Start: 08-31-2024 End: 08-31-2024 ambulatory Chalon Simon Facility:[facility] Start: 08-16-2024 End: 08-16-2024 ambulatory Chalon Simon Facility:[facility] Start: 08-10-2024 End: 08-10-2024 ambulatory Chalon Simon Facility:[facility] Start: 03-29-2024 End: 03-29-2024 Office outpatient visit 15 minutes Sruthi Keys DO Work Phone: [facility] Comment on above: Anxiety (Primary Dx) ; Overweight with body mass index (BMI) of 26 to 26.9 in adult; Pressure sensation in both ears; Middle ear effusion, bilateral; Routine health maintenance; Fatigue, unspecified type Start: 03-29-2024 End: 03-29-2024 Patient encounter status Sruthi Keys DO [facility] [facility] Work Phone: Start: 03-12-2024 End: 03-12-2024 Office outpatient visit 25 minutes Mireya Tyler MD Work Phone: [facility] Comment on above: Eustachian tube dysf unction, right (Primary Dx) Start: 02-25-2024 End: 02-25-2024 Office outpatient visit 15 minutes Sruthi Keys DO Work Phone: [facility] Comment on above: Anxiety (Primary Dx) ; Postural dizziness with presyncope; Tension headache; Acute reaction to stress Start: 02-24-2024 End: 02-24-2024 Subsequent hospital visit by physician [facility] [id number] Holter/Ecg Resource [facility] Comment on above: Orthostatic hypotens ion; Postural dizziness with presyncope Start: 02-17-2024 End: 02-17-2024 Office outpatient new 45 minutes Sruthi Keys DO Work Phone: [facility] Comment on above: Postural dizziness w ith presyncope (Primary Dx); Orthostatic hypotension; Hypokalemia; Hospital discharge follow-up; Overweight with body mass index (BMI) of 26 to 26.9 in adult; Middle ear effusion, bilateral Start: 06-11-2023 Telephone encounter Maximo Broussard MD Work Phone: [facility] Clinical Communication Comment on above: Other Start: 06-06-2023 End: 06-06-2023 [facility] Start: 06-06-2023 End: 06-06-2023 Encounter for general adult medical examination without abnormal findings [facility] Start: 06-06-2023 End: 06-06-2023 Initial preventive medicine new pt age 18-39yrs Brooklyn Patel [employer] Work Phone: [facility] Comment on above: Annual physical exam (Primary Dx); Orthostatic hypotension; Orthostatic lightheadedness; Screening for cholesterol level; Screening for deficiency anemia; Need for hepatitis C screening test; Screening for HIV (human immunodeficiency virus) Start: 06-06-2023 End: 06-06-2023 Patient encounter procedure Brooklyn Patel [employer] - [employer] Work Phone: [facility] [employer] Work Phone: Start: 06-02-2023 ambulatory [facility] Start: 06-02-2023 Patient encounter procedure Ariella Beasley RN [facility] Clinical Communication Procedures Date Procedure Procedure Detail Performing Clinician Start: 04-01-2025 Vitamin D, 25-hydrox y measurement Lucia Montes MD Work Phone: Comment on above: Vitamin D StatusDefi ciency: <20 ng/mL (50nmol/L)Insufficiency: 20-30 ng/mL (50-75 nmol/L)Sufficiency: 30-100 ng/mL (75-250 nmol/L)Toxicity: >100 ng/mL (>250 nmol/L) Start: 02-24-2025 CT of face Lucia bartholomew MD Work Phone: Start: 06-06-2023 ORTHOSTATIC BLOOD OR ESSURE AND PULSE Brooklyn Patel [employer] - [employer] Work Phone: Start: 06-06-2023 Lipid 1996 panel - S harsh or Plasma Sruthi Keys DO Work Phone: Start: 06-05-2023 Adult depression scr eening assessment Brooklyn Renéenthal [employer] - [employer] Work Phone: Plan of Treatment Date Care Activity Detail Author Start: 2043 Zoster Vaccines (1 o f 2) Zoster Vaccines (1 of 2) [facility] Start: 06-06-2028 Lipid panel Lipid Panel [facility] Start: 03-29-2025 End: 03-29-2025 Patient encounter procedure 03/29/2025 8:30 AM EDT Office Visit [facility] [address] [place] [address] Sruthi Keys DO [address] [facility] [place] [address] [facility] Start: 06-20-2024 Influenza vaccination Influenz a Vaccine (Season Ended) [facility] Start: 06-05-2024 COVID-19 Vaccine (#1) COVID-19 Vacci ne (#1) [facility] Comment on above: Postponed from 09/30 (Patient Refused) Start: 06-05-2024 Depression Screening Depression Scre engeronimo [facility] Start: 06-05-2024 DTaP/Tdap/Td Vaccine s (1 - Tdap) DTaP/Tdap/Td Vaccines (1 - Tdap) [facility] Comment on above: Postponed from 03/31 (Patient Refused) Start: 06-05-2024 Hepatitis B Vaccines (1 of 3 - 3-dose series) Hepatitis B Vaccines (1 of 3 - 3-dose series) [facility] Comment on above: Postponed from 03/31 (Patient Refused) Start: 06-05-2024 MMR Vaccines (1 of 1 - Standard series) MMR Vaccines (1 of 1 - Standard series) [facility] Comment on above: Postponed from 03/31 (Patient Refused) Start: 04-30-2024 End: 04-30-2024 Patient encounter procedure 04/30/2024 10:30 AM EDT Appointment [facility] [address] [facility] [address] [place] [address] [facility] Start: 03-29-2024 End: 03-29-2024 Patient encounter procedure 03/29/2024 4:00 PM EDT Office Visit [facility] [address] [place] [phone] Sruthi Keys DO [address] [facility], [facility] [address] [place], [place] [phone] [facility] Start: 03-29-2024 End: 03-29-2025 25-hydroxyvitamin D3 [Mass/volume] in Serum or Plasma Vitamin D 25-Hydroxy,Total (for eval of Vitamin D levels) Lab Routine Fatigue, unspecified type Expected: 03/29/2024 (Approximate), Expires: 03/29/2025 [facility] Work Phone: Comment on above: Expected: 03/29/2024 (Approximate), Expires: 03/29/2025 Start: 03-29-2024 End: 03-29-2025 CBC panel - Blood by Automated count CBC Lab Routine Routine health maintenance Expected: 03/29/2024 (Approximate), Expires: 03/29/2025 [facility] Work Phone: Comment on above: Expected: 03/29/2024 (Approximate), Expires: 03/29/2025 Start: 03-29-2024 End: 03-29-2025 Cobalamin (Vitamin B12) [Mass/volume] in Serum or Plasma Vitamin B12 Lab Routine Fatigue, unspecified type Expected: 03/29/2024 (Approximate), Expires: 03/29/2025 [facility] Work Phone: Comment on above: Expected: 03/29/2024 (Approximate), Expires: 03/29/2025 Start: 02-25-2024 End: 02-25-2024 Patient encounter procedure 02/25/2024 11:00 AM EDT Office Visit [facility] [address] [place] [address] Sruthi Keys DO [address] [facility], [address] [place], [place] [phone] [facility] Start: 02-24-2024 End: 02-24-2024 Patient encounter procedure 02/24/2024 8:30 AM EDT Appointment [facility] [address] [facility] [address] [place] [phone] [facility] Start: 02-17-2024 End: 02-16-2025 Basic metabolic 2000 panel - Serum or Plasma [facility] Work Phone: Comment on above: Expected: 02/17/2024 (Approximate), Expires: 02/16/2025 Start: 02-17-2024 End: 02-16-2025 Hemoglobin A1c/Hemoglobin.total in Blood [facility] Work Phone: Comment on above: Expected: 02/17/2024 (Approximate), Expires: 02/16/2025 Start: 02-17-2024 End: 02-16-2025 Holter monitor study Holter or Event Journal[employer] Professor Card[facility] Services Routine Orthostatic hypotension Postural dizziness with presyncope Expected: 02/17/2024, Expires: 02/16/2025 [facility] Work Phone: Comment on above: Expected: 02/17/2024 , Expires: 02/16/2025 Start: 02-17-2024 End: 02-16-2025 Magnesium [Mass/volume] in Serum or Plasma [facility] Work Phone: Comment on above: Expected: 02/17/2024 (Approximate), Expires: 02/16/2025 Start: 02-17-2024 End: 02-16-2025 Tsh With Reflex To Free T4 If Abnormal [facility] Work Phone: Comment on above: Expected: 02/17/2024 (Approximate), Expires: 02/16/2025 Start: 06-20-2023 COVID-19 Vaccine ( season) COVID-19 Vaccine () [facility] Start: 06-20-2023 Influenza vaccination Influenza Vacc ine (#1) [place] Start: 06-06-2023 End: 06-05-2024 CBC panel - Blood by Automated count CBC Lab Routine Annual physical exam Screening for deficiency anemia Expected: 06/06/2023 (Approximate), Expires: 06/05/2024 [employer] Comment on above: Expected: 06/06/2023 (Approximate), Expires: 06/05/2024 Start: 06-06-2023 End: 06-05-2024 Comprehensive metabolic 1998 panel - Serum or Plasma Comprehensive metabolic panel Lab Routine Annual physical exam Expected: 06/06/2023 (Approximate), Expires: 06/05/2024 [place] Comment on above: Expected: 06/06/2023 (Approximate), Expires: 06/05/2024 Start: 06-06-2023 End: 06-05-2024 Hepatitis C virus Ab [Presence] in Serum or Plasma by Immunoassay Hepatitis C antibody Lab Routine Annual physical exam Need for hepatitis C screening test Expected: 06/06/2023 (Approximate), Expires: 06/05/2024 [facility] Comment on above: Expected: 06/06/2023 (Approximate), Expires: 06/05/2024 Start: 06-06-2023 End: 06-05-2024 HIV 1+2 Ab+HIV1 p24 Ag [Presence] in Serum or Plasma by Immunoassay HIV-1 and HIV-2 Antigen-Antibody Screen Lab Routine Annual physical exam Screening for HIV (human immunodeficiency virus) Expected: 06/06/2023 (Approximate), Expires: 06/05/2024 [facility] [employer] [facility] Work Phone: Comment on above: Expected: 06/06/2023 (Approximate), Expires: 06/05/2024 Start: 06-06-2023 End: 06-05-2024 Lipid 1996 panel - Serum or Plasma Lipid panel Lab Routine Annual physical exam Screening for cholesterol level Expected: 06/06/2023 (Approximate), Expires: 06/05/2024 [facility] Comment on above: Expected: 06/06/2023 (Approximate), Expires: 06/05/2024 Start: 06-06-2023 End: 06-06-2023 Patient encounter procedure 06/06/2023 8:20 AM EDT Office Visit [facility] [address] [place] [address] Brooklyn Patel, COLBY - DIRECTOR [employer] [address] [place] [address] [facility] Start: 2015 DTaP/Tdap/Td Vaccine s (1 - Tdap) DTaP/Tdap/Td Vaccines (1 - Tdap) [facility] Start: 2012 DTaP/Tdap/Td Vaccine s (1 - Tdap) DTaP/Tdap/Td Vaccines (1 - Tdap) [facility] Start: 2012 Hepatitis B Vaccines (1 of 3 - 19+ 3-dose series) Hepatitis B Vaccines (1 of 3 - 19+ 3-dose series) [facility] Start: 2011 Hepatitis C screening Hepatitis C Sc reening [facility] Start: 2006 Varicella vaccination Varicell a Vaccines (1 of 2 - 13+ 2-dose series) [facility] Start: 2005 Depression Screening Depression Scre ening [facility] Start: 1994 MMR Vaccines (1 of 1 - Standard series) MMR Vaccines (1 of 1 - Standard series) [facility] Start: 1994 Varicella vaccination Varicell a Vaccines (1 of 2 - 2-dose childhood series) [facility] Start: 1993 COVID-19 Vaccine (#1) COVID-19 Vacci ne (#1) [facility] Start: 1993 Hepatitis B Vaccines (1 of 3 - 3-dose series) Hepatitis B Vaccines (1 of 3 - 3-dose series) [facility] Start: 1993 HIV screening HIV Screening [facility] Start: 1993 [facility] Adult [facility] End: 02-24-2024 Holter monitor study [facility] Service Area Work Phone: Comment on above: Once for 1 Occurrenc es starting 02/24/2024 until 02/24/2024 End: 12-11-2025 XR Cervical spine AP and Lateral XR CERV GENERAL 2V AP/LAT Radiology Routine Cervical disc disorder with radiculopathy 1 Occurrences starting 11/11/2024 until 12/11/2025 [facility] Work Phone: Comment on above: 1 Occurrences starti ng 11/11/2024 until 12/11/2025 Payers Date Payer Category Payer Self-pay 2017 Unknown [id number] 2017 Unknown [id number] 1995 Unknown [id number] 2.16. [id number] Unknown [id number] 2.16.8 [id number] Unknown [id number] 2.16.8 [id number] Unknown [id number] 2.16.8 [id number] Unknown [id number] 2.16.8 [id number] Unknown [id number] 2.16.8 [id number] Unknown [id number] 2.16.8 [id number] Unknown [id number] 2.16.8 [id number] Unknown [id number] 2.16.8 [id number] Unknown [id number] 2.16.8 [id number] Unknown [id number] 2.16.8 [id number] Unknown [id number] 2.16.8 [id number] Unknown [id number] 2.16.8 [id number] Unknown [id number] 2.16.8 [id number] Unknown [id number] 2.16.8 [id number] Social History Date Type Detail Facility Start: 02-17-2024 End: 12-06-2024 Tobacco smoking status NHIS Never smoked tobacco [facility] Start: 02-09-2020 End: 02-06-2024 Alcohol intake Current drinker of alcohol (finding) [facility] Start: 02-09-2020 End: 02-07-2024 Alcohol intake [facility] Start: 1995 Sex Assigned At Not on file [facility] Start: 06-06-2023 End: 02-07-2024 Gender identity Not on file [facility] Adolescent depression screening assessment 0 [facility] Start: 05-27-2023 End: 03-29-2024 Exposure to SARS-CoV-2 (event) Not sure [facility] Start: 02-06-2024 End: 02-17-2024 Tobacco use and exposure Smokeless tobacco non-user [facility] Work Phone: Start: 02-17-2024 End: 03-29-2024 Alcoholic beverage intake Ex-drinker (finding) [facility] Work Phone: Start: 02-14-2024 End: 02-24-2024 Exposure to SARS-CoV-2 (event) Unable to assess [facility] Start: 02-06-2024 Alcohol Comment few drinks occassionally [facility] Start: 1995 Sex Assigned At Male [facility] NEGATED: Highlighted rowStart: NINF History of tobacco use Passive smoker [facility] Work Phone: Clinical Notes 06-02-2023 to 02-25-2025 Note Date & Type Note Facility 02-25-2025 Radiology Diagnostic study note [facility] Imaging Services [address] [place] [address] Sinus/Facial Bone MR#: [id number] Acct: [id number] Name: YOLANDA BUCK Rep #: [id number] : 1995 M 29 From: Christian Barlow MD PCP: Dr. Lucia Montes MD Status: REG CL I Study:Sinus/Facial Bone Date of Exam: Exam# [id number] Ordering Dr: Carlos Javier MD PROCEDURE: SINUS/FACIAL BONE REASON FOR EXAM: SINUSITIS TECHNIQUE: CT of the paranasal sinuses without contrast. Coronal and Sagittal reconstruction series were provided. One or more dose reduction techniques were used (e.g., Automated exposure control, adjustment of the mA and/or kV according to patient size, use of iterative reconstruction technique). COMPARISON: None. FINDINGS: The paranasal sinuses appear well formed without wall thickening or sclerosis. A single thin synechia within the upper right and left maxillary sinuses. The paranasal sinuses otherwise are clear without mucoperiosteal thickening or air-fluid levels. Bilateral ostiomeatal complex, frontoethmoidal and sphenoethmoidal recesses are clear. No significant nasal septal deviation. The turbinates appear within limits. The orbits appear within limits. Infra temporal fossa fat appears preserved. Bilateral pterygopalatine foramen appear within limits. Bilateral fossa of Rosenmuller appears symmetric. The mastoids, middle ears and internal auditory canals appear within limits. TMJs appear normally located. CT/Sinus/Facial Bone IMPRESSION: No significant appearing sinus disease as above. Reading Location: [facility] CC: Dr. Lucia Montes MD; Dr. 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 Author Type: Physician Scale Operator Type: Progress Notes Filed: 11/11/2024 12:44 Note Text: Per Triage: Yolanda Buck is a 29 year old male that requests evaluation of neck pain, shoulder pain, right arm weakness and numbness. Per review, patient is having neck pain radiating to the shoulders for 9-10 months. Patient was seen at OSH. He has done PT which made his pain worse. Numbness radiates down the right arm. He has associated difficulty walking and balance issues. BMI: 27.9 Request: Dr. Quiñonez Referring provider: self referral Patient out of state: No 2nd opinion: No Prior spine surgery: No CMT: Injections: Trigger point shoulder R PT Gabapentin Muscle Relaxer Studies (Reports unless indicated) MRI cervical spine FINDINGS: Counting reference: Craniocervical junction. Anatomic variants: None. Alignment: Slight straightening of the usual cervical lordosis. Vertebral Body Height: Normal. Bone Marrow: No aggressive focal lesion or pathologic marrow infiltration. Cord: Normal signal intensity and morphology. Craniocervical Junction, Cervical Soft Tissues and Included Brain: Craniocervical junction and included structures of the posterior fossa are within normal limits. No dorsal paraspinous, paravertebral, or prevertebral fluid collection. C2-C3: No significant spinal canal or neural foraminal stenosis. C3-C4: No significant spinal canal or neural foraminal stenosis. C4-C5: No significant spinal canal or neural foraminal stenosis. C5-C6: No significant spinal canal or neural foraminal stenosis. C6-C7: No significant spinal canal or neural foraminal stenosis. C7-T1: No significant spinal canal or neural foraminal stenosis. IMPRESSION: Normal study. MRI Brain Impression: Normal unenhanced and enhances MRI of the brain and bilateral internal auditory canals. EMG: Electrodiagnostic impression: This is an abnormal study. 1. Electrodiagnostic findings suggestive of a right-sided median mononeuropathy. This is consistent with a mild right carpal tunnel syndrome. 2. Electrodiagnostic evidence is noted for cervical radiculopathy. Disposition: Based on triage, recommend patient be scheduled with surgeon Satish Quiñonez MD - . Spine Xrays prior to appt: cervical spine Please make sure patient imaging is available for review [facility] of Present illness Narrative* Mary Li PA-C - 11/11/2024 12:33 PM EST Per Triage: Yolanda Buck is a 29 year old male that requests evaluation of neck pain, shoulder pain, right arm weakness and numbness. Per review, patient is having neck pain radiating to the shoulders for 9-10months. Patient was seen at OSH. He has done PT which made his pain worse. Numbness radiates down the right arm. He has associated difficulty walking and balance issues. BMI: 27.9 Request: Dr. Quiñonez Referring provider: self referral Patient out of state: No 2nd opinion: No Prior spine surgery: No CMT: Injections: Trigger point shoulder R PT Gabapentin Muscle Relaxer Studies (Reports unless indicated) MRI cervical spine FINDINGS: Counting reference: Craniocervical junction. Anatomic variants: None. Alignment: Slight straightening of the usual cervical lordosis. Vertebral Body Height: Normal. Bone Marrow: No aggressive focal lesion or pathologic marrow infiltration. Cord: Normal signal intensity and morphology. Craniocervical Junction, Cervical Soft Tissues and Included Brain: Craniocervical junction and included structures of the posterior fossa are within normal limits. No dorsal paraspinous, paravertebral, or prevertebral fluid collection. C2-C3: No significant spinal canal or neural foraminal stenosis. C3-C4: No significant spinal canal or neural foraminal stenosis. C4-C5: No significant spinal canal or neural foraminal stenosis. C5-C6: No significant spinal canal or neural foraminal stenosis. C6-C7: No significant spinal canal or neural foraminal stenosis. C7-T1: No significant spinal canal or neural foraminal stenosis. IMPRESSION: Normal study. MRI Brain Impression: Normal unenhanced and enhances MRI of the brain and bilateral internal auditory canals. EMG: Electrodiagnostic impression: This is an abnormal study. 1. Electrodiagnostic findings suggestive of a right-sided median mononeuropathy. This is consistent with a mild right carpal tunnel syndrome. 2. Electrodiagnostic evidence is noted for cervical radiculopathy. Disposition: Based on triage, recommend patient be scheduled with surgeon Satish Quiñonez MD - . Spine Xrays prior to appt: cervical spine Please make sure patient imaging is available for review Mary Li PA-C * Jose Geller P - 11/10/2024 10:25 AM EST Patient name: Yolanda Buck Are you being referred by a Center for Spine Health Provider or Pain Management Provider at [facility]? No If answer is "YES" please schedule directly with surgeon, triage does not need to be completed. Is this a self-referral Yes If not, who is the Referring Provider Is this a 2nd opinion from another spine surgeon? No Were you offered surgery? No MRI/CT/myelogram within 12 months? Yes If "NO", please refer to medical spine or PCP to complete above imaging, triage does not need to be completed If "YES, please ask for the name/address of the facility where the MRI/CT/myelogram was completed: [facility] MRI/CT/myelogram viewable in Epic: No If not, please provide [phone] to fax in imaging reports for review. Also, please inform patient to hand carry imaging disc to appointment. XR (spine) within 12 months: No If "YES, please ask for the name/address of the facility where the XR was completed: Dr. Kim's patients: Have you had previous EMG/Nerve Conduction Study, Ultrasound, or MRI for thesesame symptoms? If "YES, please ask for the name/address of the facility where they were completed: [facility] Address: [address] [place], [place] [id number] Requested provider (First and Last name): Dr Quiñonez Are you interested in a virtual visit if offered? No 1. Where are you having symptoms related to this visit? Neck pain, Shoulder pain, Arm pain, Numbness, Weakness (R) Back pain No Leg pain No Arm pain Yes Neck pain Yes 2. Are you having any of the following symptoms: Difficulty walking Yes Some balance issues Numbness Yes Weakness Yes Trouble using your hands? No 3. Have you had any injections or physical therapy in the last 12 months? Yes If "YES" then please ask for the name/address of the facility where the injections and/or physical therapy was completed [facility] Address: [address] [place], [place] [id number] Injections Trigger point shoulder R [facility] Address: [address] [place], [place] [phone] Have you tried any other kinds of non-surgical treatments in the last 12 months? (For example: NSAIDS, muscle relaxants, analgesics, oral steroids, Chiropractor, Acupuncture): Gabapentin Muscle relaxants 4. Are you currently taking daily prescribed narcotic medications for your current symptoms (For example Oxycodone, Hydrocodone, Tramadol, Morphine, Other)? No 5. Have you had previous spinal surgery for this same symptoms? No If "YES please ask for the name of facility/address of where the surgery was completed: Additional Comments [phone] (Home Phone) [facility] NoteHNO ID: [id number] Author: ?, ?, ? Service: ? Author Type: ? Type: Progress Notes Filed: 11/11/2024 12:44 Note Text: Patient name: Yolanda Buck Are you being referred by a Center for Spine Health Provider or Pain Management Provider at [facility]? No If answer is "YES" please schedule directly with surgeon, triage does not need to be completed. Is this a self-referral Yes If not, who is the Referring Provider Is this a 2nd opinion from another spine surgeon? No Were you offered surgery? No MRI/CT/myelogram within 12 months? Yes If "NO", please refer to medical spine or PCP to complete above imaging, triage does not need to be completed If "YES,? please ask for the name/address of the facility where the MRI/CT/myelogram was completed: [facility] MRI/CT/myelogram viewable in Epic: No If not, please provide [phone] to fax in imaging reports for review. Also, please inform patient to hand carry imaging disc to appointment. XR (spine) within 12 months: No If "YES,? please ask for the name/address of the facility where the XR was completed: Dr. Kim's patients: Have you had previous EMG/Nerve Conduction Study, Ultrasound, or MRI for these same symptoms? If "YES,? please ask for the name/address of the facility where they were completed: [facility] Address: [address] [place], [place] [id number] Requested provider (First and Last name): Dr Quiñonez Are you interested in a virtual visit if offered? No 1. Where are you having symptoms related to this visit? Neck pain, Shoulder pain, Arm pain, Numbness, Weakness (R) Back pain No Leg pain No Arm pain Yes Neck pain Yes 2. Are you having any of the following symptoms: Difficulty walking Yes Some balance issues Numbness Yes Weakness Yes Trouble using your hands? No 3. Have you had any injections or physical therapy in the last 12 months? Yes If "YES" then please ask for the name/address of the facility where the injections and/or physical therapy was completed [facility] Address: [address] [place], [place] [id number] Injections Trigger point shoulder R [facility] Address: [facility] [place] [id number] Have you tried any other kinds of non-surgical treatments in the last 12 months? (For example: NSAIDS, muscle relaxants, analgesics, oral steroids, Chiropractor, Acupuncture): Gabapentin Muscle relaxants 4. Are you currently taking daily prescribed narcotic medications for your current symptoms (For example Oxycodone, Hydrocodone, Tramadol, Morphine, Other)? No 5. Have you had previous spinal surgery for this same symptoms? No If "YES? please ask for the name of facility/address of where the surgery was completed: Additional Comments [phone] (Home Phone)[facility]06-10-2024 History of Present illness Narrative* Sruthi Keys, DO - 03/29/2024 4:00 PM EDT Subjective Patient ID: Seferino Buck is a 28 y.o. male who presents for anxiety and dizziness. HPI Anxiety/dizziness PHQ-9: 2 (1) MERA-7: 9 (5) Taking Prozac 10mg until the last 4 days due to feeling dizzy on the medication. He would like to atry a more natural method, OTC supplement. Dizziness has resolved (not vertigo, but feels lightheaded) Normal holter monitor (48 hours) Pending tilt table testing Normal A1c, TSH and electrolytes Has appointment with ENT next week, reports ears are popping. Has a headache today so he is taking ibuprofen, no fevers. Taking claritin-d the last 2 weeks for allergies Has been seeing chiropractor and neck pain is improved Review of Systems HENT: Positive for congestion, ear pain and postnasal drip. Negative for hearing loss. Eyes: Negative for visual disturbance. Respiratory: Negative for shortness of breath. Allergic/Immunologic: Positive for environmental allergies. Neurological: Positive for dizziness, light-headedness and headaches. Negative for syncope and weakness. Psychiatric/Behavioral: The patient is nervous/anxious. Objective BP 135/69 (BP Location: Left arm, Patient Position: Sitting, BP Cuff Size: Large adult) Pulse 74 Temp 36.7 C (98.1 F) (Temporal) Resp 16 Wt 88.1 kg (194 lb 3.2 oz) SpO2 98% BMI 26.34 kg/m Physical Exam Constitutional: Well developed, well nourished, alert and in no acute distress Eyes: Normal external exam. Ears: Moderate effusion on right and mild middle ear effusion on left, no erythema or bulging of TM Cardiovascular: Regular rate and rhythm, normal S1 and S2, no murmurs, gallops, or rubs. Radial pulses normal. No peripheral edema. Pulmonary: No respiratory distress, lungs clear to auscultation bilaterally. No wheezes, rhonchi, rales. Skin: Warm, well perfused, normal skin turgor and color. Neurologic: Cranial nerves II-XII grossly intact. Psychiatric: Mood calm and affect normal. Assessment/Plan Continue off of Prozac,consider starting OTC Ashwagandha as directed on the bottle Consider Gene Sight testing Tilt table test canceled, per patient request START atrovent nasal spray as directed, may reduce to 1 spray 1-2x/day if too drying Keep appointment with ENT [facility] Work Phone: 1(239) 687-766206-10-2024 Miscellaneous Notes* Addendum Note - Sruthi Keys DO - 03/29/2024 4:00 PM EDTAddended by: SRUTHI KEYS on: 03/29/2024 04:28 PM Modules accepted: Level of Service documented in this [facility]Un[facility] Work Phone: 1(911) 970-166106-10-2024 Note* Addendum Note - Sruthi Keys DO - 03/29/2024 4:00 PM EDTAddended by: SRUTHI KEYS on: 03/29/2024 04:28 PM Modules accepted: Level of Service [facility] Work Phone: 1(663) 793-536405-24-2024 History of Present illness Narrative* Mireya Tyler MD - 03/12/2024 11:30 AM EDT Subjective Patient ID: Yolanda Giordano" is a 28 y.o. male who presents for Ear Discomfort (Right ear painx1.5 week. Was told that he had fluid on the ear, was using something that caused the ears a lot ofpain. Stopped using that. Noise causes pain on that side. ). HPI See email string. Pain around/ in right ear. Was in front of ear , then at the ear, with sensitivity to sounds , ie when talking on phone ) and then posterior. Slight dizziness, but not new At times, feels a pressure in ear. Denies: ST Fever Sinus congestion Ear drainage Ear injury Tinnitus Hearing loss Review of Systems Objective BP 111/69 (BP Location: Left arm, Patient Position: Sitting, BP Cuff Size: Large adult) Pulse 64 Temp 36.7 C (98 F) (Temporal) Wt 87.9 kg (193 lb 11.2 oz) SpO2 98% BMI 26.27 kg/m Physical Exam Mild amount of fluid behind eardrum, right. No TMJ pain on palpation ,. No crepitus. No cervical LN Neck ROM normal. Assessment/Plan Problem List Items Addressed This Visit None Visit Diagnoses Eustachian tube dysfunction, right - Primary Nasal spray caused nose irritation / bleeding. So will do oral allergy med. If not resolved after a couple week, should call . Would consult ENT. Jonna Tyler MD documented in this [facility] Work Phone: 1(112) 522-430305-08-2024 History of Present illness Narrative* Sruthi Keys, DO - 02/25/2024 11:00 AM EDT Subjective Patient ID: Seferino Buck is a 28 y.o. male who presents for anxiety and dizziness. HPI Anxiety/dizziness PHQ-9:1 MERA-7: 5 He is currently wearing a holter monitor. Feels improved after eating (Friday only had a granola bar that morning and had another dizzy episode) C/o neck pain that radiates to temples bilaterally, bilateral shoulders and upper back +eye twitching He states he is sleeping well Took boots off this time for weight (196lbs at last visit a week ago), with boots today 193lbs Normal TSH Was drinking 55oz coffee/day, now drinking much less but getting headaches +fmhx anxiety-brother Review of Systems Constitutional: Negative for appetite change, fatigue and unexpected weight change. Eyes: Negative for visual disturbance. Respiratory: Negative for shortness of breath. Musculoskeletal: Positive for neck pain. Neurological: Positive for dizziness, light-headedness and headaches. Negative for syncope and weakness. Psychiatric/Behavioral: The patient is nervous/anxious. Objective BP 122/82 (BP Location: Left arm, Patient Position: Sitting, BP Cuff Size: Large adult) Pulse 92 Temp 36.7 C (98 F) (Temporal) Resp 16 Wt 85.2 kg (187 lb 12.8 oz) SpO2 98% BMI 25.47 kg/m Physical Exam Constitutional: Well developed, well nourished, alert and in no acute distress Eyes: Normal external exam. Neck: Supple, no lymphadenopathy or masses. +suboccipital TTP, significant muscle tension bilateraltrapezius muscles with TTP bilateral rhomboids with muscle spasms present. Cardiovascular: Regular rate and rhythm, normal S1 and S2, no murmurs, gallops, or rubs. Radial pulses normal. No peripheral edema. Pulmonary: No respiratory distress, lungs clear to auscultation bilaterally. No wheezes, rhonchi, rales. Skin: Warm, well perfused, normal skin turgor and color. Neurologic: Cranial nerves II-XII grossly intact. Psychiatric: Mood calm and affect normal. Assessment/Plan or Dr.Kara Devi ([place])-chiropractors Consider massotherapy Be mindful of posture and body tension, try to relax shoulders and stretch neck/back Holter monitor worn currently, pending results Tilt table to be scheduled Eat small, frequent meals (high protein and high fiber), stay hydrated START prozac daily in the morning with food x 4 weeks. We discussed that this medication may cause light headache, nausea and stomach upset the first few days. Follow up in 4 weeks for mood documented in this [facility] Work Phone: 1(506) 503-189504-30-2024 History of Present illness Narrative* Sruthi Keys DO - 02/17/2024 10:30 AM EDT Subjective Patient ID: Seferino Buck is a 28 y.o. male who presents for an establishing visit and ED follow up. Presents with significant other. [facility] ED Follow up Location: [facility] ED Date: 02/06/2024 1 week ago (Friday) he had a presyncopal episode at work. He works for [employer] so is active at work. He reports blackened vision but no LOC, fell to ground and boss sent him to ED. Had similar symptoms last week, left work 1/2 hour early, again on Friday. When he changes positions he get lightheaded and dizziness. 1 year ago used to be 282lbs and now 196lbs, drinks 1 gallon water daily, does not eat breakfast. Lost weight by changing lifestyle to healthier. Concerned about ghdynnx-KFQ-5: 3, MERA-7: 11 Feels better when he moves around Denies heart palpitations Results: Low K Elevated glucose Normal magnesium CXR normal CT head normal Normal EKG Review of Systems HENT: Positive for postnasal drip. Respiratory: Negative for shortness of breath. Cardiovascular: Negative for chest pain, palpitations and leg swelling. Skin: Negative for pallor. Neurological: Positive for dizziness and light-headedness. Negative for syncope, weakness and headaches. Objective BP 121/79 (BP Location: Right arm, Patient Position: Standing, BP Cuff Size: Adult) Pulse 107 Temp 37.2 C (98.9 F) (Temporal) Resp 14 Ht 1.829 m (6') Wt 89.1 kg (196 lb 8 oz) SpO2 98% BMI 26.65 kg/m Physical Exam Constitutional: Well developed, well nourished, alert and in no acute distress Eyes: Normal external exam. Ears: normal bilateral EAC, mild BROCK noted bilaterally, L>R Neck: Supple, no lymphadenopathy or masses. No thyromegaly. Cardiovascular: Regular rate and rhythm, normal S1 and S2, no murmurs, gallops, or rubs. Radial pulses normal. No peripheral edema. Pulmonary: No respiratory distress, lungs clear to auscultation bilaterally. No wheezes, rhonchi, rales. Skin: Warm, well perfused, normal skin turgor and color. No pallor noted. Neurologic: Cranial nerves II-XII grossly intact. Psychiatric: Mood calm and affect normal. Assessment/Plan Orthostatic vital signs performed today -labs ordered -7 day holter monitor -stay hydrated with water, drink 1 body armour a day -consider compression stockings only while awake -be mindful of changing positions ED records reviewed Restart OTC flonase or nasacort- 1 spray in each nostril 2x/day for the first 7 days, then just 1x/day for 3 more weeks Follow up in 4-6 weeks [facility] in [facility] Work Phone: 1(894) 431-336104-30-2024 Instructions* Patient Instructions* Sruthi Keys DO - 02/17/2024 10:30 AM EDT Orthostatic vital signs performed today -labs ordered -7 day holter monitor -stay hydrated with water, drink 1 body armour a day -consider compression stockings only while awake -be mindful of changing positions ED records reviewed Restart OTC flonase or nasacort- 1 spray in each nostril 2x/day for the first 7 days, then just 1x/day for 3 more weeks Follow up in 4-6 weeks documented in [facility] encounterC[facility] Work Phone: 1(707) 987-558108-23-2023 Telephone encounter Note* Telephone Encounter - Kasey Cornejo MA - 06/11/2023 8:25 AM EDT Spoke to patient, his father Oscar will pick these up for him. 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 [facility] [id number] Miscellaneous Notes* Telephone Encounter - Kasey Cornejo MA - 06/11/2023 8:25 AM EDT Spoke to patient, his father Oscar will pick these up for him. * Telephone Encounter - Mireille May MA - 06/11/2023 8:25 AM EDT See new TE patient needs to excelsior picker a copy of labs. * Telephone Encounter - Diamond Swann - 06/11/2023 7:57 AM EDT Name of caller: Yolanda Buck Contact phone number: [phone] Relationship to Patient: Patient Provider: Maximo Mathis Practice: [facility] Chief Complaint/Reason for Call: Caller is needing his blood results re sent to a different email: [email or web address] Best time of day caller can be reached: any Patient advised that office/PCP has 24-48 business hours to return their call: yes documented in this encounterSMercy [id number] Telephone encounter Note* Telephone Encounter - Diamond Ray - 06/11/2023 7:57 AM EDT Name of caller: Yolanda Buck Contact phone number: [phone] Relationship to Patient: Patient Provider: Maximo Mathis Practice: [facility] Chief Complaint/Reason for Call: Caller is needing his blood results re sent to a different email: [email or web address] Best time of day caller can be reached: any Patient advised that office/PCP has 24-48 business hours to return their call: yes [facility] [id number] Evaluation + Plan note* Assessment & Plan Note - COLBY Zheng CNP - 06/06/2023 8:55 AM EDTAssociated Problem(s): Orthostatic hypotension Orthostatic blood pressures + , check cmp, cbc, increase sodium and water intake up to 2.5 L daily. [facility] [id number] Miscellaneous Notes* Assessment & Plan Note - COLBY Zheng CNP - 06/06/2023 8:55 AM EDTAssociated Problem(s): Orthostatic hypotension Orthostatic blood pressures + , check cmp, cbc, increase sodium and water intake up to 2.5 L daily. documented in this encounterSMercy [id number] History of Present illness Narrative* COLBY Zheng CNP - 06/06/2023 8:20 AM EDT Images from the original note were not included. 06/06/2023 Yolanda Buck (: 1995) is a 28 y.o. male , New patient, here for evaluation of the following chief complaint(s): New Patient, Dizziness, Labs Only, and Annual Exam ASSESSMENT/PLAN: 1. Annual physical exam - HIV-1 and HIV-2 Antigen-Antibody Screen - Hepatitis C antibody - Comprehensive metabolic panel - CBC - Lipid panel 2. Orthostatic hypotension Assessment & Plan: Orthostatic blood pressures + , check cmp, cbc, increase sodium and water intake up to 2.5 L daily. 3. Orthostatic lightheadedness Assessment & Plan: Orthostatic blood pressures + , check cmp, cbc, increase sodium and water intake up to 2.5 L daily. Orders: - Check Orthostatic Vital Signs 4. Screening for cholesterol level - Lipid panel 5. Screening for deficiency anemia - CBC 6. Need for hepatitis C screening test - Hepatitis C antibody 7. Screening for HIV (human immunodeficiency virus) - HIV-1 and HIV-2 Antigen-Antibody Screen Follow up for as directed pending test results. SUBJECTIVE/OBJECTIVE: HPI - Yolanda Buck presents as new patient, previous primary care provider Abdelrahman, last seen ?prior to 2014 by previous provider. Specialists/other providers? No Chief complaint(s): New Patient, Dizziness, Labs Only, and Annual Exam [place] for [facility] dept, [facility] for about 11 years, , expecting 1st child in July. Has 2 dogs at home and 's bird. family hx htn,hypercholesterolemia, melanoma, stroke. non smoker, no etoh, exercises 5 d a week, eats generally healthy, has noticed over the past year when going from squat position or bending over and standing up that he is getting lightheaded after bending over. Quickly resolves. Reports drinking plenty of fluids. No chest pain, shortness of breath, or heart palpitations. Feels fine otherwise. History reviewed. No pertinent past medical history. Past Surgical History: Procedure Laterality Date ANTERIOR CRUCIATE LIGAMENT REPAIR Right 2009 Family History Problem Relation Name Age of Onset No Known Problems Mother Karlee Hypertension Father Oscar Hyperlipidemia Father Oscar No Known Problems Brother Jacob Stroke Father's Brother No Known Problems Maternal Grandmother Yakov Social History Socioeconomic History Marital status: Spouse name: Not on file Number of children: Not on file Years of education: Not on file Highest education level: Not on file Occupational History Not on file Tobacco Use Smoking status: Never Smokeless tobacco: Never Vaping Use Vaping Use: Never used Substance and Sexual Activity Alcohol use: Yes Alcohol/week: 2.0 standard drinks of alcohol Drug use: Never Sexual activity: Yes Partners: Female Other Topics Concern Not on file Social History Narrative - is jalyn, aug 03 expecting son, ramos retriever - susana and a afghan buckley- rosieand 's bird- [facility]. [facility] [place] Social Determinants of Health Financial Resource Strain: Not on file Food Insecurity: Not on file Transportation Needs: Not on file Physical Activity: Not on file Stress: Not on file Social Connections: Not on file Intimate Partner Violence: Not on file Housing Stability: Not on file Prior to Admission medications Not on File Review of Systems Constitutional: Negative for activity change, appetite change, chills, diaphoresis, fatigue, fever and unexpected weight change. HENT: Negative. Eyes: Negative for visual disturbance. Last eye exam last year Respiratory: Negative for cough, chest tightness, shortness of breath and wheezing. Cardiovascular: Negative for chest pain, palpitations and leg swelling. Gastrointestinal: Negative for abdominal pain, blood in stool, constipation, diarrhea, nausea and vomiting. Genitourinary: Negative for difficulty urinating. Musculoskeletal: Positive for arthralgias (right knee occasional- hx of injury). Skin: Negative. Neurological: Positive for dizziness and light-headedness. Negative for tremors, seizures, syncope,weakness, numbness and headaches. Psychiatric/Behavioral: Negative. Vitals: 06/06/23 0806 BP: 100/64 Pulse: 55 Resp: 16 Temp: 37.1 C (98.7 F) TempSrc: Oral SpO2: 100% Weight: 197 lb 6.4 oz (89.5 kg) Height: 6' 0.05" (1.83 m) Physical Exam Vitals reviewed. Constitutional: General: He is not in acute distress. Appearance: Normal appearance. He is normal weight. He is not ill-appearing or toxic-appearing. HENT: Head: Normocephalic and atraumatic. Right Ear: Tympanic membrane, ear canal and external ear normal. There is no impacted cerumen. Left Ear: Tympanic membrane, ear canal and external ear normal. There is no impacted cerumen. Nose: Nose normal. No congestion or rhinorrhea. Mouth/Throat: Mouth: Mucous membranes are moist. Pharynx: Oropharynx is clear. No oropharyngeal exudate or posterior oropharyngeal erythema. Eyes: Conjunctiva/sclera: Conjunctivae normal. Pupils: Pupils are equal, round, and reactive to light. Cardiovascular: Rate and Rhythm: Normal rate and regular rhythm. Pulses: Normal pulses. Heart sounds: Normal heart sounds. No murmur heard. Pulmonary: Effort: Pulmonary effort is normal. No respiratory distress. Breath sounds: Normal breath sounds. Abdominal: General: Abdomen is flat. Bowel sounds are normal. Palpations: Abdomen is soft. There is no mass. Tenderness: There is no abdominal tenderness. There is no right CVA tenderness or left CVA tenderness. Musculoskeletal: General: Normal range of motion. Cervical back: Normal range of motion and neck supple. No rigidity or tenderness. Lymphadenopathy: Cervical: No cervical adenopathy. Skin: General: Skin is warm and dry. Neurological: General: No focal deficit present. Mental Status: He is alert and oriented to person, place, and time. Psychiatric: Mood and Affect: Mood normal. Behavior: Behavior normal. An electronic signature was used to authenticate this note. COLBY Zheng CNP 06/06/2023 9:01 AM * Yamilka Mohr - 06/06/2023 8:20 AM EDT Orthostatic Blood Pressure Laying 124/70 55 Standing 112/74 67 Standing 98/78 83 documented in this [facility] [id number] Instructions* Patient Instructions* COLBY Zheng CNP - 06/06/2023 8:20 AM EDT Increase salt intake, increase fluid intake up to 2.5 L daily. * Attachments The following attachments cannot be sent through Care Everywhere. * Orthostatic Hypotension (Kiswahili) documented in this [facility]08-14-2023 Telephone encounter Note* Telephone Encounter - Ariella Beasley RN - 06/02/2023 12:40 PM EDT S: The patient is calling the [facility] about B: This has been present for several month A: This has gotten worse over the last week or so. There are times when he feels near syncopal. He will sit down and it goes away. He has a job where he stands long periods of time without moving. He is supposed to have blood work with his company and he feels this is too quick for him - they don't look carefully enough. No chest pain or shortness of breath. He never has racing heart symptoms. R: New patient appointment made, address provided and insurance verified. Reason for Disposition [1] MODERATE dizziness (e.g., interferes with normal activities) AND [2] has been evaluated by physician for this Protocols used: Dizziness - [id number] [facility] [id number] Miscellaneous Notes* Telephone Encounter - Ariella Coreas RN - 06/02/2023 12:40 PM EDT S: The patient is calling the [facility] about B: This has been present for several month A: This has gotten worse over the last week or so. There are times when he feels near syncopal. He will sit down and it goes away. He has a job where he stands long periods of time without moving. He is supposed to have blood work with his company and he feels this is too quick for him - they don't look carefully enough. No chest pain or shortness of breath. He never has racing heart symptoms. R: New patient appointment made, address provided and insurance verified. Reason for Disposition [1] MODERATE dizziness (e.g., interferes with normal activities) AND [2] has been evaluated by physician for this Protocols used: Dizziness - [id number] documented in this encounterSMercy HospitalEvaluation note* Diagnosis Annual physical exam- Primary Routine general medical examination at a health care facility Orthostatic hypotension Orthostatic lightheadedness Screening for cholesterol level Screening for deficiency anemia Screening for other and unspecified deficiency anemia Need for hepatitis C screening test Special screening examination for other specified viral diseases Screening for HIV (human immunodeficiency virus) Special screening examination for other specified viral diseases documented [facility] this encounter [facility]* Diagnosis Postural dizziness with presyncope- Primary Orthostatic hypotension [facility]okalemia [facility] Other follow-up examination Overweight with body mass index (BMI) of 26 to 26.9 in adult Middle ear effusion, bilateral documented in this encounter [facility] Work Phone: Evaluation note* Diagnosis Orthostatic hypotension Postural dizziness with presyncope documented in this encounter [facility] Work Phone: Evaluation note* Diagnosis Anxiety- Primary Anxiety state, unspecified Postural dizziness with presyncope Tension headache Acute reaction to stress Unspecified acute reaction to stress documented in this encounter [facility] Work Phone: Evaluation note* Diagnosis Eustachian tube dysfunction, right- Primary documented in this encounter [facility] Work Phone: Evaluation note* Diagnosis Anxiety- Primary Anxiety state, unspecified Overweight with body mass index (BMI) of 26 to 26.9 in adult Pressure sensation in both ears Middle ear effusion, bilateral Routine health maintenance Unspecified examination Fatigue, unspecified type documented in this encounter [facility] Work Phone: Evaluation note* Diagnosis Cervical disc disorder with radiculopathy- Primary Brachial neuritis or radiculitis nos documented in this encounter [facility] noteNo assessment information [facility] Work Phone: Instructions* Attachments The following attachments cannot be sent through Care Everywhere. * Eustachian tube problems (Kiswahili) [facility] Reason for referral (narrative)* Diagnostic Procedure Only (Routine) - New Request Specialty Diagnoses / Procedures Referred By Wan pena Referred To Contact XR IMAGING Diagnoses Cervical disc disorder with radiculopathy Procedures XR CERV GENERAL 2V AP/LAT RADEX SPINE CERVICAL 2 OR 3 VIEWS Mary Li PA-C [id number] [place] [address] [place] [id number] Referral ID Status Reason Start Date Expiration Date Visits Requested Visits Authorized [id number] New Request Auto-Generat ed Referral 11/11/2024 12/11/2025 1 1 [facility] for referral (narrative)No reason for referral information availableW[facility] Work Phone: Summary Purpose Family History No Family History Records Found Relationship Condition Age at Onset Recorded Date/T esha father Malignant neoplasm Unknown Advance Directives No Advanced Directives Records FoundNo Advanced Directives Records FoundNo Advanced Directives Records FoundNo Advanced Directives Records Found Reason for Referral Specialty Diagnoses / Procedures Referred By Wan pena Referred To Contact Cardiology Diagnoses Orthostatic hypotension Postural dizziness with presyncope Procedures Holter or Event Journalism Professor Sruthi Keys DO [address] [facility], [address] [place] [address] Referral ID Status Reason Start Date Expiration Date V isits Requested Visits Authorized [id number] Pending Review 02/17/2024 02/16/2025 1 1 Referral ID Status Reason Start Date Expiration Date V isits Requested Visits Authorized [id number] Authorized 02/17/2024 02/16/2025 1 1 Chief Complaint and Reason for Visit Chief Complaint Admit Date NUMBNESS AND TINGLING RT ARM October 15t 2024 10:22am NUMBNESS AND TINGLING RT ARM October 1:05pm Cervical radiculopathy December 06 3:15pm SINUSITIS February 24, 2025 6:14am Reason for Visit Admit Date Carpal tunnel syndrome of right wrist Fe bruary 2024 3:15pm Cervical radiculopathy December 06 3:15pm Cervical spondylosis December 06, 2024 3:15pm 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 Chief Complaint Admit Date SINUSITIS February 24, 2025 6:14am Additional Source Comments Reason for Visit (unrecogniz ed section and content) Reason Onset Date Comments Dizziness 06/02/2023 Reason Comments New Patient Dizziness Labs Only Annual Exam Reason Onset Date Comments Other 06/11/2023 Specialty Diagnoses / Procedures Referred By Wan t Referred To Contact Cardiology Diagnoses Orthostatic hypotension Postural dizziness with presyncope Procedures Holter or Event Journalism Professor Sruthi Keys DO [address] [facility], [facility] [address] [place] [address] Referral ID Status Reason Start Date Expiration Date V isits Requested Visits Authorized [id number] Authorized 02/17/2024 02/16/2025 1 1 Reason Comments Ear Discomfort Right ear pain x1.5 week. Was told that he had fluid on the ear, was using something that caused the ears a lot of pain. Stopped using that. Noise causes pain on that side. 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 Relationship Specialty Start Date End Date Sruthi Keys DO [address] [facility], [address] [place] [address] PCP - General Family Medicine 02/09/24 Machine Shop Worker Relationship Specialty Start Date End Date Sruthi Keys DO [address] [facility], [address] [place] [address] PCP - General Family Medicine 02/09/24 Team Status: Active Member Role Status Tari Montes MD Primary Care Provider Active Team Status: Inactive Member Role Status Tari Montes MD Primary Care Provider Active St art: November 03, 2024 End: November 03, 2024 Lucia Montes MD Attending Provider Active Start : November 03, 2024 End: November 03, 2024 Lucia Montes MD Referring Provider Active Start : November 03, 2024 End: November 03, 2024 Team Status: Active Member Role Status Tari Montes MD Primary Care Provider Active St art: November 03, 2024 Lucia Montes MD Referring Provider Active Start : November 03, 2024 Lucia Montes MD Other Provider Active Start: [facility] 2024 Dr. Mary Lou Brito MD Attending Provider Active S tart: November 03, 2024 Team Status: Inactive Member Role Status Tari Montes MD Primary Care Provider Active St art: December 06, 2024 End: December 06, 2024 Lucia Montes MD Referring Provider Active Start : December 06, 2024 End: December 06, 2024 Dr. Valeriano Trujillo MD Attending Provider Active Start: December 06, 2024 End: December 06, 2024 Team Status: Inactive Member Role Status Tari Montes MD Primary Care Provider Active St art: February 24, 2025 End: February 24, 2025 Dr. Carlos Javier MD Attending Provider Activ e Start: February 24, 2025 End: February 24, 2025 Dr. Carlos Javier MD Referring Provider Activ e Start: February 24, 2025 End: February 24, 2025 Team Status: Inactive Member Role Status Tari Montes MD Primary Care Provider Active St art: April 01, 2025 End: April 01, 2025 Lucia Montes MD Attending Provider Active Start : April 01, 2025 End: April 01, 2025 Lucia Montes MD Referring Provider Active Start : April 01, 2025 End: April 01, 2025 (unrecognized sect ion and content) No Status Records FoundNo Status Records FoundNo Status Records FoundNo Status Records Found INFORMATION SOURCE (unrecogn ized section and content) DATE CREATED AUTHOR 06/12/2023 [facility] DATE CREATED AUTHOR AUTHOR'S ORGANIZ ATION 09/16/2024 [facility] DATE CREATED AUTHOR AUTHOR'S ORGANIZ ATION 11/13/2024 [facility] DATE CREATED AUTHOR AUTHOR'S ORGANIZ ATION 04/16/2025 [facility] Comments (unrecognize d section and content) In the event this informatio n is protected by the Federal Confidentiality of Alcohol and Drug Abuse Patient Records regulations: The Federal rules restrict any use of the information to criminally investigate or prosecute any alcohol or drug abuse patient.[facility] Goals (unrecognized section and content) Goals may be documented in a n alternate sectionGoals may be documented in an alternate section FOR RECORDS PERTAINING TO PATIENTS WHO ARE OR HAVE BEEN ENROLLED IN A CHEMICAL DEPENDENCY/SUBSTANCEABUSE PROGRAM, SOME INFORMATION MAY BE OMITTED. This clinical summary was aggregated from multiple sources. Caution should be exercised in using it in the provision of clinical care. This summary normalizes information from multiple sources, and as a consequence, information in this document may materially change the coding, format and clinical context of patient data. In addition, data may be omitted in some cases. CLINICAL DECISIONS SHOULD BE BASED ON THE PRIMARY CLINICAL RECORDS. [facility] [facility]. provides no warranty or guarantee of the accuracy or completeness of information in this document.
[2025-04-23 07:30] LABS: Hematocrit 42.5 % (40-54); Hemoglobin 14.1 g/dL (13.0-16.5); Mean Corp Hgb Conc 33.2 g/dL (32-36); Mean Corpuscular Volume 90.0 fL (80-94); Mean Platelet Vol. 10.4 fl (6.2-12.0); Platelet Count 220 K/mm3 (150-450); RBC Distribution Width CV 12.5 % (11.6-14.6); RBC Distribution Width SD 41.2 fl (35.1-43.9); Red Blood Count 4.72 M/mm3 (4.6-6.2); White Blood Count 6.7 K/mm3 (4.4-11.0)
[2025-04-23 09:07] LABS: Anion Gap 11 (5-15); BUN 23 mg/dL (4-19); BUN/Creat Ratio 20.5 RATIO (10-20); Calcium,Total 9.1 mg/dL (7.6-11.0); Carbon Dioxide 21.6 mmol/L (21.0-32.0); Chloride 107 mmol/L (98-108); Glucose 95 mg/dL (70-99); Potassium 4.2 mmol/L (3.3-5.1)
== END 2025-04-23 23:59 | disposition home or self-care (01) ==
LOC: LAB 07:09
PROVIDERS: PCP Family Medicine; Referring Provider Family Medicine; Visit Provider Family Medicine
DX: R42 Dizziness and giddiness (principal); R79.89 Other specified abnormal findings of blood chemistry
CPT/HCPCS: 36415; 80048; 85027

== ENCOUNTER → 2025-04-26 | Outpatient (CLI) | payer OTHER, SELFPAY ==
--- NOTE | 2025-04-26 17:50 | PCM.TILTTABL ---
Staff Staff: Mireille Alicea and Sana Walsh Summary Pre Test Resting HR: 91 Pre Test Resting BP: 140/82 Minimum Test HR: 82 Maximum Test HR: 130 Minimum Test BP: 0/0 Maximum Test BP: 142/98 Reason for Test Termination: Syncope Physician Tilt Table Report Patient's Physicians Primary Care Physician: Lucia Montes Indications/Diagnosis: Dizziness Procedure Comments: The patient was brought to the noninvasive lab in the postabsorptive nonsedated state. Initial heart rate and blood pressure measurements were obtained as well as an EKG with a heart rate of 91 bpm blood pressure 140 over 82 mm meters of mercury in sinus rhythm. The patient was then placed in the 70 degree head upright tilt position and maintained for approximately 20 minutes. Continuous EKG monitoring as well as blood pressure measurements were obtained. No significant abnormalities were noted. After approximately 20 minutes the patient was put back in the supine position and 0.4 mg of sublingual nitroglycerin was administered. The patient was then put in the 70 degree head upright tilt position there was increase in the heart rate from 113 to 130 bpm and then the blood pressure started dropping with the patient complaining of clamminess and anxiety feeling with subsequent drop in the blood pressure as well as the heart rate. Patient then had a syncopal episode and was put in the supine position and recovered. Patient regained blood pressure and heart rate after receiving 500 cc of normal saline. Final heart rate was 88 bpm with a blood pressure 114/73 mmHg. Summary: Vasodepressive syncope noted following tilt table test with sublingual nitroglycerin administration.
[2025-04-26 17:54] VITALS: BP 0/0; BP 140/82; BP 142/98
== END | disposition home or self-care (01) ==
LOC: CVS 09:18
PROVIDERS: PCP Family Medicine; Referring Provider Family Medicine; Visit Provider Family Medicine
DX: R55 Syncope and collapse (principal)
CPT/HCPCS: 93660; A4216

== ENCOUNTER 2025-07-13 15:30 | Outpatient (RCR) | payer OTHER, SELFPAY ==
--- NOTE | 2025-06-02 17:30 | HP.PTEVAL ---
Patient's Visit Information Visit Information Visit Information: YOLANDA HIGGINS is a 30 year old M referred to Physical Therapy by MANISHA RIVERO with a diagnosis of TMJ dysfunction. Date of Evaluation: 06/02/25 Physical Therapist: Pepe Moura DPT, OCS, CSCS Visit Plan Frequency: 2x /Week Duration: 4-6 Weeks Plan: 2x/weeek (if patient can make it in) for: IE HEP: iso jaw opening 10 sec 5x and jaw opening PROM 10 sec 5x, also cervical retraction, scapr retraction and appropriatee tongue positioning per rocobado 1,2 and 4. Treeat with 1. US to R TMJ non thermal 2. STM to upper neck, B masseter and internally to pterygoids on R side. 3. isometric strength jaw opening and deviation and progress to HEP, jaw ROM opening and educate on relaxation of jaw and activity modification. 4. may do TENS to R TMJ with MH if painful at rest. Subjective Subjective: B R>L neck pain and into jaw and R ear pain. CLIFFORD in jaw masseter area above ears and over eyes. Intermittent but daily. 03/29. Clenches at night adn got a mouthguard and is on night two, last guard lieutenant did not help. Dentist got this new one. Chewing makes it worse. Eating. Worsened with neck therapy but doees have 3 bulging discs. Had stem cell treatment in discs which helped. Worse in evening. 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 Sleep is not a problem. Activities are effected when it is bad, avoids yard work some day due to CLIFFORD. Pain R jaw and ear, CLIFFORD: Pain Intensity (Out of 10): 1 Pain Intensity Range: 0 and 6 Comment: tight Objective Objective: Posture is forward head adn slightly protracted scap, loss of lordosis in cervical. Tender to palpation in B UT and cervical paraspinals. Tends to hold mouth closed adn move it very little with talking. has 37 mm opening a little shy of normal adn feels tight on R>L, deviations are 12 mm each without pain but tight B. Max tender over R pterygoids that is not present on the L. Masseter is tender B minimally to touch. Jaw opening shows a deviation to the L half way open. reflexes bi and tri and jaw are normal no popping today in either TMJ but had chiropractic visit earlier today where they stripped those mm. It has helpeed 2x/ now. Funcijtonal mobility is WNL and I trasnfers and gait. Goals Goal 1:: I appropriate management of TMJ strength adn ROM adn positioning. Goal Time Frame: 4-6 Weeks Goal 2:: CLIFFORD and jaw/neck pain 75% better at 1/10 at worst Goal Time Frame: 4-6 Weeks Goal 3:: Able to chew food wihtout increased symptoms Goal Time Frame: 4-6 Weeks Goal 4:: Activitiees at home 100% normal without limitations due to CLIFFORD Goal Time Frame: 4-6 Weeks Rehabilitation Potential Physical Therapy Diagnosis: limited jaw ROM and tightness possibly from TMj creating life effecting symptoms. Rehabilitation Potential: Fair Anticipated Interventions Patient/Client Instruction: Educate patient on: Condition and Plan of Care For the Purpose of:: To decrease pain, To increase ROM, To improve nutrient delivery to tissue and To increase tolerance to activity/condition/position Therapeutic Exercise to Include: Strength training, Postural training, Flexibilty training, Relaxation training, Passive ROM and Active ROM For the Purpose of:: To decrease pain, To increase ROM, To improve nutrient delivery to tissue, To improve muscle performance and motor function, To increase tolerance to activity/condition/position, To improve ability of physical actions for home/community/work/leisure and To improve gait and locomotor functions Manual Therapy Techniques to Include: Mobilization, Passive ROM and Soft tissue mobilization For the Purpose of:: To decrease pain, To increase ROM and To improve nutrient delivery to tissue TENS: Yes Thermo therapy (hot pack): Yes Ultrasound (thermal/non thermal): Yes (thermal to R TMJ) For the Purpose of:: To improve nutrient delivery to tissue, To increase oxygenation perfusion and To increase tolerance to activity/condition/position Text: Thank you for the opportunity to evaluate your patient. For Medicare and Medicare HMO plans, please review the plan of care and approve it. It will need to be FAXED BACK to us at [phone] for Medicare purposes. For Medicare only, by signing this I certify the plan of care. Please let me know if there are questions or concerns regarding this plan of care. Physician Signature: Date:
--- NOTE | 2025-07-13 16:21 | HP.PTDCSUM ---
Discharge Summary D/C summary: It has been my pleasure to treat YOLANDA HIGGINS referred by MANISHA RIVERO, with the diagnosis of TMJ dysfunction for a total of 12 visit(s). Discharge Date: 07/13/25 Please see the following information for a summary of their discharge status. Subjective Subjective: Hlping alot. Still gts intermittent pain. Relieved for a day or two after session. Was wearing mouth guard and quit last week. Chiropractor really helped neck and pain and CLIFFORD. Still gets popping and clicking in jaw. Less intense adn less often. To dentist in 2-3 Pain R jaw and ear, CLIFFORD: Pain Intensity (Out of 10): 2 Overall Improvement % Improvement: 70 Objective Objective/Function: 50 mm opening and straight without deviation. 12 mm B deviation without pain. Does get loud R sided pop with opening wide. Overall better but still popping and dealing with inteermittent CLIFFORD but 70% improved. maintenance will be the question at this point. Goals Goal 1:: I appropriate management of TMJ strength adn ROM adn positioning. Goal Progress: Goal Met Goal 2:: CLIFFORD and jaw/neck pain 75% better at 1/10 at worst Goal Progress: 70% Goal 3:: Able to chew food wihtout increased symptoms Goal Progress: avoids tough, but good Goal 4:: Activitiees at home 100% normal without limitations due to CLIFFORD Goal Progress: normal. Plan Plan: d/c, pt to doctor in 2-3 weeks for check. D/C Information d/c sentence: If there are questions or concerns regarding this patient's physical therapy, please feel free to call me at [phone]. Thank you for the referral of this patient. Sincerely, Pepe Moura, DPT, OCS, CSCS Balance/Gait/Functional tests Improvement % Improvement: 70
== END 2025-07-13 19:00 | disposition home or self-care (01) ==
LOC: PT 15:30
PROVIDERS: PCP Family Medicine
DX: M26.629 Arthralgia of temporomandibular joint, unspecified side (principal)
CPT/HCPCS: 97035; 97110; 97140; 97161; 97164; 97530

== ENCOUNTER → 2025-07-14 | Outpatient (CLI) | payer OTHER, SELFPAY ==
--- NOTE | 2025-07-14 08:00 | ECHOD_ITS ---
Reason For Study Reason For Study: Syncope Procedure This was a 2D Doppler, Color Flow transthoracic echocardiogram. Exam performed in department. Left Ventricle Normal LV size. Left ventricular systolic function is normal. The left ventricular ejection fraction is 60 %. Normal diastology for age. No regional wall motion abnormalities noted. Right Ventricle Normal RV size. Normal systolic function. Atria Normal left atrium. Normal right atrium. Mitral Valve Normal mitral valve. Tricuspid Valve Normal tricuspid valve. Mild tricuspid valve insufficiency. Aortic Valve Normal aortic valve. Trisinus/trileaflet aortic valve. Pulmonic Valve Normal pulmonic valve. Great Vessels Normal aortic root. The pulmonary artery is normal size. Inferior vena cava collapse with respiration. Pericardium/Pleural No pericardial effusion. MMode/2D Measurements & Calculations LVIDd: 4.8 cm IVSd: 0.81 cm Ao root diam: 3.2 cm LVIDs: 3.2 cm LVPWd: 0.96 cm RVDd: 4.4 cm FS: 33.4 % LAV(MOD-bp): 31.1 ml LVAd ap4: 32.0 cm2 SV(MOD-sp4): 55.3 ml LAV(MOD-bp) Indexed: 14.1 ml/m2 LVLd ap4: 8.3 cm SI(MOD-sp4): 25.0 ml/m2 LAV(MOD-sp2): 41.2 ml EDV(MOD-sp4): 99.7 ml LAV(MOD-sp4): 23.9 ml EDV(sp4-el): 104.8 ml LVAs ap4: 19.7 cm2 LVLs ap4: 7.5 cm ESV(MOD-sp4): 44.3 ml ESV(sp4-el): 43.9 ml EF(MOD-sp4): 55.5 % EF(sp4-el): 58.1 % SV(sp4-el): 60.9 ml LA A4 area: 11.5 cm2 LA dimension(2D): 3.3 cm RA A4 area: 16.7 cm2 TAPSE: 2.2 cm Time Measurements MV dec time: 0.17 sec Doppler Measurements & Calculations MV E max hoang: 82.1 cm/sec Lat Peak E' Hoang: 17.9 cm/sec Med Peak E' Hoang: 15.3 cm/sec MV A max hoang: 56.3 cm/sec E/E' lat: 4.6 E/E' med: 5.4 MV E/A: 1.5 MV V2 max: 94.1 cm/sec MV P1/2t max hoang: 94.1 cm/sec Ao V2 max: 99.3 cm/sec MV max P.5 mmHg MV P1/2t: 60.4 msec Ao max P.9 mmHg MV V2 mean: 53.7 cm/sec Ao V2 mean: 68.5 cm/sec MV mean P.3 mmHg MV dec slope: 456.7 cm/sec2 Ao mean P.2 mmHg MV V2 VTI: 26.6 cm MVA(P1/2t): 3.6 cm2 Ao V2 VTI: 21.8 cm AV (velocity ratio): 0.85 LV V1 max: 90.7 cm/sec PA V2 max: 116.1 cm/sec TR max hoang: 212.0 cm/sec LV V1 max P.3 mmHg PA V2 mean: 78.1 cm/sec TR max P.0 mmHg LV V1 mean P.8 mmHg LV V1 mean: 61.7 cm/sec LV V1 VTI: 18.6 cm ECHO/Echo Complete Interpretation Summary Normal LV size. Left ventricular systolic function is normal. The left ventricular ejection fraction is 60 %. Structurally normal valves. Ordering Physician: Shay Jiang Referring Physician: Shay Jiang Performed By: Jesus Sexton RCS
--- OUTSIDE RECORDS SUMMARY | 2025-07-14 08:16 | XMS RPT_ITS | CCD ---
Author Organization [facility] CliniSyde Care Team Providers Care Linux Unix System Administrator Name Role Phone Ender Corral DO Primary Care Provider Maximo Mathis MD Primary Care Provider BROOKLYN BYRNE Attending Unavailable MAXIMO MATHIS Primary Care Unavailable Sruthi Keys DO Primary Care Provider PROVIDER, UNKNOWN Attending Unavailable PROVIDER, UNKNOWN Admitting Unavailable SUZANNE BOOKER Referring Unavailable Unavailable Primary Care Provider Unavailabl e Lucia Montes MD Primary Care Provider Lucia Montes MD Attending Provider [phone] Lucia Montes MD Referring Provider Lucia Montes MD Other Provider Daryl DAVILA, Dr. Barreto Attending Provider Dr. Valeriano Trujillo MD Attending Provider Dr. Carlos Javier MD Attending Provider Dr. Carlos Javier MD Referring Provider Lucia Montes MD Primary Care Provider [phone] Lucia Montes MD Attending Provider [phone] Lucia Montes MD Referring Provider Lucia Montes MD Other Provider Deidre DAVILA, Dr. Day Attending Provider Sruthi Keys DO Primary Care Provider MANISHA RIVERO Attending Provider MANISHA RIVERO Referring Provider Renata, Chalon Primary Care Unavailable Renata, Chalon Referring Unavailable Ahmad, Mary Lou Attending Unavailable Renata, Chalon Consulting Unavailable Renata, Chalon Referring Unavailable Renata, Chalon Primary Care Unavailable Renata, Chalon Attending Unavailable Renata, Chalon Primary Care Unavailable Renata, Chalon Referring Unavailable Renata, Chalon Attending Unavailable Fernando, Rancho Attending Unavailable Renata, Chalon Primary Care Unavailable Renata, Chalon Referring Unavailable Fernando, Rancho Attending Unavailable Renata, Chalon Primary Care Unavailable Renata, Chalon Referring Unavailable Renata, Chalon Referring Unavailable Renata, Chalon Consulting Unavailable Renata, Chalon Primary Care Unavailable Deidre, Shya Attending Unavailable Renata, Chalon Referring Unavailable Renata, Chalon Primary Care Unavailable Deidre, Shay Attending Unavailable Renata, Chalon Referring Unavailable Lluvia Brock Attending Unavailable Renata, Chalon Primary Care Unavailable Renata, Chalon Primary Care Unavailable Renata, Chalon Referring Unavailable Renata, Chalon Attending Unavailable Wartmann, Christbertin Referring Unavailabl e Wartmann, Christopher Attending Unavailabl e Rneata, Chalon Primary Care Unavailable Renata, Chalon Primary Care Unavailable Renata, Chalon Referring Unavailable Renata, Chalon Attending Unavailable KELLY, BRA Attending Unavailable Renata, Chalon Primary Care Unavailable KELLY, BRA Referring Unavailable Renata, Chalon Primary Care Unavailable Deidre, Shay Referring Unavailable Deidre, [place] Attending Unavailable Renata, Chalon Primary Care Unavailable Kareen, Suzanne Referring Unavailable Kareen, Suzanne Attending Unavailable Renata, Chalon Primary Care Unavailable Renata, Chalon Referring Unavailable Renata, Chalon Attending Unavailable Renata, Chalon Attending Unavailable Renata, Chalon Primary Care Unavailable Renata, Chalon Referring Unavailable Renata, Chalon Referring Unavailable Renata, Chalon Primary Care Unavailable Renata, Chalon Attending Unavailable Renata, Chalon Referring Unavailable Renata, Chalon Primary Care Unavailable Renata, Chalon Attending Unavailable Renata, Chalon Primary Care Unavailable Renata, Chalon Referring Unavailable Valeriano Trujillo Attending Unavailable Renata, Chalon Referring Unavailable Renata, Chalon Primary Care Unavailable Kareen, Suzanne Attending Unavailable Medications Current Medications Medication Drug Class(es) Dates Sig (Normalized) Sig (Original) ergocalciferol 1.25 mg oral capsule (2 sources) Provitamin D2 Compound Start: 05-26-2025 End: 06-08-2025 Ergocalciferol (Vitamin D2) 1,250 mcg (50,000 unit) capsule Active 1250 ug PO EVERY WEEK as needed June 08, 2025 3:12pm ipratropium bromide 0.021 mg/actuat metered dose nasal spray (2 sources) Anticholinergic Start: 03-29-2024 End: 04-05-2024 take 2 spray(s) nasal route every twelve hours ipratropium (Atrovent) 21 mcg (0.03 %) nasal spray Indications: Middle ear effusion, bilateral Administer 2 sprays into each nostril every 12 hours for 7 days. 30 mL 03/29/2024 Active Completed/Discontinued Medications Medication Drug Class(es) Dates Sig [...] List Cleanup) meloxicam 7.5 mg oral tablet (5 sources) Nonsteroidal Anti-inflammatory Drug Start: 08-31-2024 End: 09-30-2024 take 1 tablet by mouth once daily Meloxicam 7.5 mg tablet Discontinued 7.5 mg PO daily August 31, 2024 1:00am September 30, 2024 10:30am tiZANidine 4 mg oral tablet (6 sources) Central alpha-2 Adrenergic Agonist Start: 08-31-2024 End: 06-08-2025 take 1 tablet by mouth three times daily Tizanidine 4 mg tablet Discontinued 4 mg PO THREE TIMES A DAY May 26, 2025 4:03pm June 08, 2025 3:12pm Problems Active Problems Problem Classification Problem Date Documented Date Episodic/Chronic Anxiety disorders (3 sources) Anxiety; Translations: [Anxiety disorder, unspecified] 02-25-2024 Chronic Conditions associated with dizziness or vertigo (13 sources) Orthostatic hypotension; Translations: [Dizziness and giddiness] Onset: 06-06-2023 06-06-2023 Episodic Fluid and electrolyte disorders (1 source) Hypokalemia; Translations: [Hypokalemia] 02-17-2024 Episodic Headache; including migraine (1 source) Tension-type headache; Translations: [Tension-type headache, unspecified, not intractable] 02-25-2024 Chronic Headache; including migraine (1 source) Frequent headache; Translations: [Frequent headaches] 05-21-2025 Episodic Immunizations and screening for infectious disease (6 sources) Viral screening status; Translations: [Encounter for screening for other viral diseases] Onset: 06-06-2023 06-06-2023 Episodic Nutritional deficiencies (1 source) Vitamin D deficiency; Translations: [Vitamin D deficiency, unspecified] 05-26-2025 Chronic Other aftercare (1 source) Post-discharge follow-up; Translations: [Encounter for follow-up examination after completed treatment for conditions other than malignant neoplasm] 02-17-2024 Episodic Other and unspecified benign neoplasm (1 source) Benign neoplasm of sphenoid bone; Translations: [Benign neoplasm of bones of skull and face] 05-21-2025 Episodic Other ear and sense organ disorders (1 source) Ear pressure sensation; Translations: [Other specified disorders of ear, bilateral] 03-29-2024 Episodic Other nervous system disorders (3 sources) Disease of spinal cord, unspecified; Translations: [Disease of spinal cord, unspecified] Onset: 08-31-2024 Chronic Other nervous system disorders (6 sources) Carpal tunnel syndrome of right wrist; Translations: [Carpal tunnel syndrome, right upper limb] 12-06-2024 Chronic Comment on above: Identified by EMG ne rve conduction study. I noted that he did not have a Tinel's sign he did not have tenderness in the ulnar grooves on physical exam. Other nervous system disorders (6 sources) Ulnar neuropathy; Translations: [Lesion of ulnar nerve, unspecified upper limb] 12-06-2024 Chronic Comment on above: Identified by EMG ne rve conduction studies. Other nervous system disorders (5 sources) Cervical myelopathy; Translations: [Disease of spinal cord, unspecified] 08-31-2024 Chronic Other nutritional; endocrine; and metabolic disorders (2 sources) Overweight in adulthood with body mass index of 25 or more but less than 30; Translations: [Overweight] 02-17-2024 Episodic Other screening for suspected conditions (not mental disorders or infectious disease) (10 sources) Patient encounter status; Translations: [Encounter for screening for lipoid disorders] Onset: 06-06-2023 06-06-2023 Episodic Other upper respiratory disease (1 source) Deviated nasal septum; Translations: [Deviated nasal septum] 05-21-2025 Episodic Other upper respiratory infections (1 source) Other chronic sinusitis; Translations: [Other chronic sinusitis] Onset: 03-01-2025 Chronic Otitis media and related conditions (3 sources) Finding of fluid behind tympanic membrane; Translations: [Unspecified nonsuppurative otitis media, bilateral] 02-17-2024 Episodic Spondylosis; intervertebral disc disorders; other back problems (6 sources) Cervical spondylosis; Translations: [Spondylosis without myelopathy or radiculopathy, cervical region] 12-06-2024 Chronic Comment on above: Patient gives a 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 Since then [...] ability to work on job site. Syncope (2 sources) Syncope and collapse; Translations: [Syncope and collapse] Onset: 05-06-2025 Episodic Past or Other Problems Problem Classification Problem Date Documented Date Episodic/Chronic Malaise and fatigue (2 sources) Fatigue; Translations: [Other fatigue] Onset: 11-12-2024 03-29-2024 Episodic Mood disorders (6 sources) Mood disorders Onset: 06-05-2023 Resolved: 03-29-2024 06-05-2023 Other injuries and conditions due to external causes (1 source) Other injury of unspecified body region, initial encounter; Translations: [Other injury of unspecified body region, initial encounter] Onset: 11-17-2024 Episodic Other nervous system disorders (1 source) Anesthesia of skin; Translations: [Anesthesia of skin] Onset: 11-24-2024 Episodic Other nervous system disorders (1 source) Paresthesia of skin; Translations: [Paresthesia of skin] Onset: 11-24-2024 Episodic Spondylosis; intervertebral disc disorders; other back problems (10 sources) Cervical disc disorder with radiculopathy; Translations: [Cervical disc disorder with radiculopathy, unspecified cervical region] Onset: 08-31-2024 11-11-2024 Episodic Comment on above: Evidence of radiculo vandana by EMG studies. Unclassified (1 source) Onset: 05-10-2025 05-10-2025 Results Test Name Value Interpretation Reference Range Facility Cardiology Visit Reporton Cardiology Visit Report [facility] [address] [place] [address] OFFICE VISIT Date of Service: 06/08/25 MR#: [id number] Acct: [id number] Name: YOLANDA BUCK Rep #: [id number] : 1995 Provider: Dr. Shay Jiang MD Age/Sex: 30/M Location: [facility] Status: Signed HPI HPI History of Present Illness Details: Pleasant 30-year-old man with no previous cardiac history who presents for evaluation of his abnormal tilt table test. He says that he has had periods of lightheadedness and near syncope recently over the last year or so. He does not remember that he had any particular disease issue. He saw his primary care physician who checked his blood work and hemoglobin and were noted to be normal other than his BUN being a little elevated. He underwent a tilt table test and noted a heart rate increase from 113 to 230 bpm with blood pressure drop anxiety feeling and heart rate also dropping. It appeared that this was more consistent with vasodepressive syncope rather than POTS. He has also occasionally had some heart fluttering and his EKG today demonstrates sinus rhythm with a rate of 69 bpm his physical exam is unremarkable. Intake Vital Signs 12/06/24 15:24 06/08/25 15:08 Height 6 ft 6 ft Weight: 218 lb BMI 29.5 BP 126/83 H Blood Pressure Location Lt brachial Position Sitting Respiration 16 Pulse 70 Pulse Source Monitor Intake Visit Reasons: ABN TILT TABLE (RENATA) Digital Media Manager Required: No Accompanied by: Significant Other Is patient in pain?: No Allergies No Known Allergies Allergy (Unverified 06/08/25 15:12) Medications ???Medication ???Instructions ???Recorded ???Confirmed ???Type ergocalciferol (vitamin D2) 1,250 1,250 mcg PO QWEEK PRN 06/08/25 0 06/08/25 History mcg (50,000 unit) capsule ivabradine 5 mg tablet 5 mg PO BID #60 tabs 06/08/2505/21 Rx PFSH Medical History Abnormal tilt table test Vitamin D deficiency Dizziness Carpal tunnel syndrome of right wrist Cervical radiculopathy Ulnar nerve neuropathy Cervical spondylosis Cervical myelopathy with cervical radiculopathy Surgical History History of repair of anterior cruciate ligament of right knee Family History Father Cancer Prostate Mother No problems noted. Social History household members: spouse and children current occupational status: employed current occupation: [employer] pets and animals: Yes pets and animals: dog(s) Smoking Status: Never smoker alcohol intake: never caffeine: Yes Type: coffee do you feel safe at home: Yes ROS Const Const: Negative for fatigue, weakness, headache(s), daytime sleepiness or difficulty sleeping ENT ENT: Positive for dizziness; Negative for headache(s) or Nosebleed/epistaxis Cardio Chest Pain: No Palpitations: Yes (fluttering) Edema: None Resp Respiratory: Negative for SOB with activity, SOB at rest, SOB orthopnea SOB lying down or Cough GI GI: Negative nausea, vomiting or heartburn Neuro Neuro: Positive for dizziness, lightheadedness and near syncope; Negative for headache(s) or weakness Endo Endo: Negative for fatigue Cardiology Exam Const Appearance: cooperative, healthy appearing, no acute distress, well developed and well groomed Nutritional Appearance: average body habitus and well nourished Orientation: alert, awake and oriented x3 Head Head: normal to inspection, normocephalic and atraumatic Ears: hearing grossly normal bilaterally and external ears normal Nose: external nose normal, nares normal, nasal mucous membranes and turbinates normal, septum normal and no nasal discharge Face and Sinus: face symmetric Mouth: oral mucosae normal, tongue normal, oropharynx normal and moist mucous membranes Teeth and gingiva: dentition normal Throat: posterior oropharynx normal, tonsils normal and uvula midline Eyes General: appearance normal, both eyes and all related structures Eyelids: eyelids normal Conjunctivae: conjunctivae normal Pupils: PERRL, normal by confrontation and accommodation normal EOM: EOM intact bilaterally Neck Neck: normal visual inspection, trachea midline and no JVD JVD: +5 Carotids: normal carotid upstroke and bounding pulses Chest Chest inspection: normal inspection of the chest, symmetric chest movement and normal respiratory effort Auscultation: Bilateral: Clear to Auscultation Cardio Palpation: normal PMI Rate: regular rate Rhythm: regular rhythm Heart sounds: S1 normal, S2 normal and normal, physiologic split S2; Negative rub, gallop or murmur GI GI: mickey (more content not included)... Normal [facility] Inital Evaluation (1) - PTon 06-02-2025 Inital Evaluation (1) - PT [facility] Physical Therapy [facility] [address] [place] [address] [address] [place] [id number] / REHABILITATION SERVICES INITIAL EVALUATION MR#: [id number] Acct: [id number] Name: YOLANDA BUCK Rep #: [id number] : 1995 30 From: Pepe Moura DPT, OCS, CSCS Referring DrJoyce: MANISHA RIVERO Status: REG RCR Insurance: [facility] SELF PAY INSURANCE Patient's Visit Information Visit Information Visit Information: YOLANDA BUCK is a 30 year old M referred to Physical Therapy by MANISHA RIVERO with a diagnosis of TMJ dysfunction. Date of Evaluation: 06/02/25 Physical Therapist: Pepe Moura DPT, OCS, CSCS Visit Plan Frequency: 2x /Week Duration: 4-6 Weeks Plan: 2x/weeek (if patient can make it in) for: IE HEP: iso jaw opening 10 sec 5x and jaw opening PROM 10 sec 5x, also cervical retraction, scapr retraction and appropriatee tongue positioning per rocobado 1,2 and 4. Treeat with 1. US to R TMJ non thermal 2. STM to upper neck, B masseter and internally to pterygoids on R side. 3. isometric strength jaw opening and deviation and progress to HEP, jaw ROM opening and educate on relaxation of jaw and activity modification. 4. may do TENS to R TMJ with MH if painful at rest. Subjective Subjective: B R>L neck pain and into jaw and R ear pain. CLIFFORD in jaw masseter area above ears and over eyes. Intermittent but daily. 03/29. Clenches at night adn got a mouthguard and is on night two, last day guard did not help. Dentist got this new one. Chewing makes it worse. Eating. Worsened with neck therapy but doees have 3 bulging discs. Had stem cell treatment in discs which helped. Worse in evening. 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 Sleep is not a problem. Activities are effected when it is bad, avoids yard work some day due to CLIFFORD. Pain R jaw and ear, CLIFFORD: Pain Intensity (Out of 10): 1 Pain Intensity Range: 0 and 6 Comment: tight Objective Objective: Posture is forward head adn slightly protracted scap, loss of lordosis in cervical. Tender to palpation in B UT and cervical paraspinals. Tends to hold mouth closed adn move it very little with talking. has 37 mm opening a little shy of normal adn feels tight on R>L, deviations are 12 mm each without pain but tight B. Max tender over R pterygoids that is not present on the L. Masseter is tender B minimally to touch. Jaw opening shows a deviation to the L half way open. reflexes bi and tri and jaw are normal no popping today in either TMJ but had chiropractic visit earlier today where they stripped those mm. It has helpeed 2x/ now. Funcijtonal mobility is WNL and I trasnfers and gait. Goals Goal 1:: I appropriate management of TMJ strength adn ROM adn positioning. Goal Time Frame: 4-6 Weeks Goal 2:: CLIFFORD and jaw/neck pain 75% better at 10 at worst Goal Time Frame: 4-6 Weeks Goal 3:: Able to chew food wihtout increased symptoms Goal Time Frame: 4-6 Weeks Goal 4:: Activitiees at home 100% normal without limitations due to CLIFFORD Goal Time Frame: 4-6 Weeks Rehabilitation Potential Physical Therapy Diagnosis: limited jaw ROM and tightness possibly from TMj creating life effecting symptoms. Rehabilitation Potential: Fair Anticipated Interventions Patient/Client Instruction: Educate patient on: Condition and Plan of Care For the Purpose of:: To decrease pain, To increase ROM, To improve nutrient delivery to tissue and To increase tolerance to activity/condition/p osition Therapeutic Exercise to Include: Strength training, Postural training, Flexibilty training, Relaxation training, Passive ROM and Active ROM For the Purpose of:: To decrease pain, To increase ROM, To improve nutrient delivery to tissue, To improve muscle performance and motor function, To increase tolerance to activity/condition/p osition, To improve ability of physical actions for home/community/work/ leisure and To improve gait and locomotor functions Manual Therapy Techniques to Include: Mobilization, Passive ROM and Soft tissue mobilization For the Purpose of:: To decrease pain, To increase ROM and To improve nutrient delivery to tissue TENS: Yes Thermo therapy (hot pack): Yes Ultrasound (thermal/non thermal): Yes (thermal to R TMJ) For the Purpose of:: To improve nutrient delivery to tissue, To increase oxygenation perfusion and To increase tolerance to activity/condition/p osition Text: Thank you for the opportunity to evaluate your patient. For Medicare and Medicare HMO plans, please review the plan of care and approve it. It will need to be FAXED BACK to us at [phone] for Medicare purposes. For Medicare only, by signing this I certify the plan of care. Please let me know if there are questions or concerns regarding this plan of care. Physician Signature: _ (more content not included)... Normal [facility] Tilt Tableon 04-26-2025 Tilt [facility] [place] [address] 04/26/25 1750 MR#: [id number] Acct: [id number] Name: YOLANDA BUCK Rep #: [id number] : 1995 30 From: Shay Jiang MD Attending Dr: Dr. Lucia Montes MD Status: JIN DIAZ Ordering Dr: Lucia Montes MD Date: 04/26/25 Location: [facility] Sex: M C Admitted: Staff Staff: Mireille Alicea and Sana Walsh Summary Pre Test Resting HR: 91 Pre Test Resting BP: 140/82 Minimum Test HR: 82 Maximum Test HR: 130 Minimum Test BP: 0/0 Maximum Test BP: 142/98 Reason for Test Termination: Syncope Physician Tilt Table Report Patient's Physicians Primary Care Physician: Lucia Montes Indications/Diagnosi s: Dizziness Procedure Comments: The patient was brought to the noninvasive lab in the postabsorptive nonsedated state. Initial heart rate and blood pressure measurements were obtained as well as an EKG with a heart rate of 91 bpm blood pressure 140 over 82 mm meters of mercury in sinus rhythm. The patient was then placed in the 70 degree head upright tilt position and maintained for approximately 20 minutes. Continuous EKG monitoring as well as blood pressure measurements were obtained. No significant abnormalities were noted. After approximately 20 minutes the patient was put back in the supine position and 0.4 mg of sublingual nitroglycerin was administered. The patient was then put in the 70 degree head upright tilt position there was increase in the heart rate from 113 to 130 bpm and then the blood pressure started dropping with the patient complaining of clamminess and anxiety feeling with subsequent drop in the blood pressure as well as the heart rate. Patient then had a syncopal episode and was put in the supine position and recovered. Patient regained blood pressure and heart rate after receiving 500 cc of normal saline. Final heart rate was 88 bpm with a blood pressure 114/73 mmHg. Summary: Vasodepressive syncope noted following tilt table test with sublingual nitroglycerin administration. 04/26/25 175 Date Shay Jiang MD CC: Dr. Lucia Montes MD Date Dictated: 04/26/251749 Date Transcribed: 04/26/251749 Machine Iii Coremaker: CO Signed Normal [facility] Anion gap in Serum or Plasma Ordered By: Lucia Montes on 04-23-2025 Anion gap [Moles/Vol] 11 mmol/L 5-15 [facility] BUN/creatinine ratioOrdered By: Lucia Montes on 04-23-2025 Urea nitrogen/Creatinine [Mass ratio] 20.5 mg/mg High - [facility] Basic Metabolic Profile (BMP )on 04-23-2025 BUN/CRE 20.5 RATIO High - [facility] Comment on above: Performed By: #### L 100.0500, L500.2500 #### [facility] [address] [place], [address] Calcium [Mass/Vol] 9.1 mg/dL Normal 7.6-11.0 [facility] Comment on above: Performed By: #### L 100.0500, L500.2500 #### [facility] [address] [place], [address] Chloride [Moles/Vol] 107 mmol/L Normal 98-108 [facility] Comment on above: Performed By: #### L 100.0500, L500.2500 #### [facility] [address] [place], [address] CO2 [Moles/Vol] 21.6 mmol/L Normal 21.0-32.0 [facility] Comment on above: Performed By: #### L 100.0500, L500.2500 #### [facility] [address] [place], [address] Creatinine [Mass/Vol] 1.10 mg/dL Normal 0.70-1.20 [facility] Comment on above: Performed By: #### L 100.0500, L500.2500 #### [facility] [address] [place], [address] GAP 11 Normal -15 [facility] Comment on above: Performed By: #### L 100.0500, L500.2500 #### [facility] [address] [place], [address] GFR/1.73 sq M.predicted among non-blacks MDRD (S/P/Bld) [Vol rate/Area] 91 mL/min/{1.73_m2} Normal >60 [facility] Comment on above: Result Comment: mL/m in/1.73m2 CKD-EPI Creatinine Equation (2020) Performed By: #### L 100.0500, L500.2500 #### [facility] [address] [place], [address] Glucose [Mass/Vol] 95 mg/dL Normal 70-99 [facility] Comment on above: Performed By: #### L 100.0500, L500.2500 #### [facility] [address] [place], [address] Potassium [Moles/Vol] 4.2 mmol/L Normal 3.3-5.1 [facility] Comment on above: Performed By: #### L 100.0500, L500.2500 #### [facility] [address] [place], [address] Sodium [Moles/Vol] 140 mmol/L Normal 133-145 [facility] Comment on above: Performed By: #### L 100.0500, L500.2500 #### [facility] [address] [place], [address] Urea nitrogen [Mass/Vol] 23 mg/dL High 4-19 [facility] Comment on above: Performed By: #### L 100.0500, L500.2500 #### [facility] [address] [place], [address] CBC-Complete Blood Cnt No Di ffon 04-23-2025 Erythrocyte distribution width (RBC) [Ratio] 12.5 % Normal 11.6-14.6 [facility] Comment on above: Performed By: #### L 100.0500, L500.2500 #### [facility] [address] [place], [address] Hematocrit (Bld) [Volume fraction] 42.5 % Normal 40-54 [facility] Comment on above: Performed By: #### L 100.0500, L500.2500 #### [facility] [address] [place], [address] Hemoglobin (Bld) [Mass/Vol] 14.1 g/dL Normal 13.0-16.5 [facility] Comment on above: Performed By: #### L 100.0500, L500.2500 #### [facility] [address] [place], [address] MCH (RBC) [Entitic mass] 29.9 pg Normal 27.0-32.0 [facility] Comment on above: Performed By: #### L 100.0500, L500.2500 #### [facility] [address] [place], [address] MCHC (RBC) [Mass/Vol] 33.2 g/dL Normal 32-36 [facility] Comment on above: Performed By: #### L 100.0500, L500.2500 #### [facility] [address] [place], [address] MCV (RBC) [Entitic vol] 90.0 fL Normal 80-94 [facility] Comment on above: Performed By: #### L 100.0500, L500.2500 #### [facility] [address] [place], [address] Platelet mean volume (Bld) [Entitic vol] 10.4 fL Normal 6.2-12.0 [facility] Comment on above: Performed By: #### L 100.0500, L500.2500 #### [facility] [address] [place], [address] Platelets (Bld) [#/Vol] 220 10*3/uL Normal 150-450 [facility] Comment on above: Performed By: #### L 100.0500, L500.2500 #### [facility] [address] [place], [address] RBC (Bld) [#/Vol] 4.72 10*6/uL Normal 4.6-6.2 [facility] Comment on above: Performed By: #### L 100.0500, L500.2500 #### [facility] [address] [place], [address] RDW SD 41.2 fl Normal 35.1-43.9 [facility] Comment on above: Performed By: #### L 100.0500, L500.2500 #### [facility] [address] [place], [address] WBC (Bld) [#/Vol] 6.7 10*3/uL Normal 4.4-11.0 [facility] Comment on above: Performed By: #### L 100.0500, L500.2500 #### [facility] [address] [place], [address] Carbon dioxide, total [Moles /volume] in Central venous bloodOrdered By: Lucia Montes on 04-23-2025 CO2 [Moles/Vol] 21.6 mmol/L 21.0-32.0 [facility] Chloride assayOrdered By: Amanda Montes on 04-23-2025 Chloride [Moles/Vol] 107 mmol/L 98-108 [facility] Erythrocyte distribution wid th ratioOrdered By: Lucia Montes on 04-23-2025 Erythrocyte distribution width (RBC) [Ratio] 12.5 % 11.6-14.6 [facility] Erythrocyte distribution wid th standard deviationOrdered By: Lucia Montes on 04-23-2025 Erythrocyte distribution width (RBC) [Ratio] 41.2 fl 35.1-43.9 [facility] Glomerular filtration rate ( GFR) estimation/1.73 sq m using serum, plasma, or whole bOrdered By: Lucia Montes on 04-23-2025 GFR/1.73 sq M.predicted among non-blacks MDRD (S/P/Bld) [Vol rate/Area] 91 mL/min/{1.73_m2} >60 [facility] Comment on above: mL/min/1.73m2 CKD-EP I Creatinine Equation (2020) Hematocrit Auto (Bld) [Volum e fraction]Ordered By: Lucia Montes on 04-23-2025 Hematocrit (Bld) [Volume fraction] 42.5 % 40-54 [facility] Hemoglobin measurementOrdere d By: Lucia Montes on 04-23-2025 Hemoglobin (Bld) [Mass/Vol] 14.1 g/dL 13.0-16.5 [facility] MCV (mean corpuscular volume ) determinationOrdered By: Lucia Montes on 04-23-2025 MCV (RBC) [Entitic vol] 90.0 fL 80-94 [facility] Mean corpuscular hemoglobin (MCH) determinationOrdered By: Lucia Montes on 04-23-2025 MCH (RBC) [Entitic mass] 29.9 pg 27.0-32.0 [facility] Mean corpuscular hemoglobin concentration (MCHC) determinationOrdered By: Lucia Montes on 04-23-2025 MCHC (RBC) [Mass/Vol] 33.2 g/dL 32-36 [facility] Mean platelet volume determi nationOrdered By: Lucia Montes on 04-23-2025 Platelet mean volume (Bld) [Entitic vol] 10.4 fL 6.2-12.0 [facility] Platelet countOrdered By: Amanda Montes on 04-23-2025 Platelets (Bld) [#/Vol] 220 10*3/uL 150-450 [facility] Potassium measurement (mass/ volume)Ordered By: Lucia Montes on 04-23-2025 Potassium (Unsp spec) [Mass/Vol] 4.2 mmol/L 3.3-5.1 [facility] RBC Auto (Bld) [#/Vol]Ordere d By: Lucia Montes on 04-23-2025 RBC (Bld) [#/Vol] 4.72 10*6/uL 4.6-6.2 [facility] Serum creatinine measurement (mass/volume)Ordered By: Lucia Montes on 04-23-2025 Creatinine [Mass/Vol] 1.10 mg/dL 0.70-1.20 [facility] Serum glucose measurement (m ass/volume)Ordered By: Lucia Montes on 04-23-2025 Glucose [Mass/Vol] 95 mg/dL 70-99 [facility] Serum or plasma calcium elidia urement (mass/volume)Ordered By: Lucia Montes on 04-23-2025 Calcium [Mass/Vol] 9.1 mg/dL 7.6-11.0 [facility] Serum or plasma urea nitroge n measurement (mass/volume)Ordered By: Lucia Montes on 04-23-2025 Urea nitrogen [Mass/Vol] 23 mg/dL High 4-19 [facility] Sodium levelOrdered By: Sonia Montes on 04-23-2025 Sodium [Moles/Vol] 140 mmol/L 133-145 [facility] White blood cell (WBC) count Ordered By: Lucia Montes on 04-23-2025 WBC (Bld) [#/Vol] 6.7 10*3/uL 4.4-11.0 [facility] Anion gap in Serum or Plasma Ordered By: Lucia Montes on 04-01-2025 Anion gap [Moles/Vol] 11 mmol/L - [facility] BUN/creatinine ratioOrdered By: Lucia Montes on 04-01-2025 Urea nitrogen/Creatinine [Mass ratio] 15.9 mg/mg 08-08 [facility] Basic Metabolic Profile (BMP )on 04-01-2025 BUN/CRE 15.9 RATIO Normal 08-08 [facility] Comment on above: Performed By: #### L 500.2500, L506.1001 #### [facility] [address] [place], [place], [address] Calcium [Mass/Vol] 9.4 mg/dL Normal 7.6-11.0 [facility] Comment on above: Performed By: #### L 500.2500, L506.1001 #### [facility] [address] [place], [address] Chloride [Moles/Vol] 106 mmol/L Normal 98-108 [facility] Comment on above: Performed By: #### L 500.2500, L506.1001 #### [facility] [address] [place], [address] CO2 [Moles/Vol] 23.8 mmol/L Normal 21.0-32.0 [facility] Comment on above: Performed By: #### L 500.2500, L506.1001 #### [facility] [address] [place], [address] Creatinine [Mass/Vol] 1.09 mg/dL Normal 0.70-1.20 [facility] Comment on above: Performed By: #### L 500.2500, L506.1001 #### [facility] [address] [place], [address] GAP 11 Normal 5-15 [facility] Comment on above: Performed By: #### L 500.2500, L506.1001 #### [facility] [address] [place], [address] GFR/1.73 sq M.predicted among non-blacks MDRD (S/P/Bld) [Vol rate/Area] 92 mL/min/{1.73_m2} Normal >60 [facility] Comment on above: Result Comment: mL/m in/1.73m2 CKD-EPI Creatinine Equation (2020) Performed By: #### L 500.2500, L506.1001 #### [facility] [address] [place], [address] Glucose [Mass/Vol] 99 mg/dL Normal 70-99 [facility] Comment on above: Performed By: #### L 500.2500, L506.1001 #### [facility] [address] [place], [address] Potassium [Moles/Vol] 4.5 mmol/L Normal 3.3-5.1 [facility] Comment on above: Performed By: #### L 500.2500, L506.1001 #### [facility] [address] [place], [address] Sodium [Moles/Vol] 141 mmol/L Normal 133-145 [facility] Comment on above: Performed By: #### L 500.2500, L506.1001 #### [facility] [address] [place], [address] Urea nitrogen [Mass/Vol] 17 mg/dL Normal 4-19 [facility] Comment on above: Performed By: #### L 500.2500, L506.1001 #### [facility] [address] [place], [address] Carbon dioxide, total [Moles /volume] in Central venous bloodOrdered By: Lucia Montes on 04-01-2025 CO2 [Moles/Vol] 23.8 mmol/L 21.0-32.0 [facility] Chloride assayOrdered By: Amanda Montes on 04-01-2025 Chloride [Moles/Vol] 106 mmol/L 98-108 [facility] Glomerular filtration rate ( GFR) estimation/1.73 sq m using serum, plasma, or whole bOrdered By: Lucia Montes on 04-01-2025 GFR/1.73 sq M.predicted among non-blacks MDRD (S/P/Bld) [Vol rate/Area] 92 mL/min/{1.73_m2} >60 [facility] Comment on above: mL/min/1.73m2 CKD-EP I Creatinine Equation (2020) Potassium measurement (mass/ volume)Ordered By: Lucia Montes on 04-01-2025 Potassium (Unsp spec) [Mass/Vol] 4.5 mmol/L 3.3-5.1 [facility] Serum creatinine measurement (mass/volume)Ordered By: Lucia Montes on 04-01-2025 Creatinine [Mass/Vol] 1.09 mg/dL 0.70-1.20 [facility] Serum glucose measurement (m ass/volume)Ordered By: Lucia Montes on 04-01-2025 Glucose [Mass/Vol] 99 mg/dL 70-99 [facility] Serum or plasma calcium elidia urement (mass/volume)Ordered By: Lucia Montes on 04-01-2025 Calcium [Mass/Vol] 9.4 mg/dL 7.6-11.0 [facility] Serum or plasma urea nitroge n measurement (mass/volume)Ordered By: Lucia Montes on 04-01-2025 Urea nitrogen [Mass/Vol] 17 mg/dL 4-19 [facility] Sodium levelOrdered By: Sonia Montes on 04-01-2025 Sodium [Moles/Vol] 141 mmol/L 133-145 [facility] Vitamin D,25 Hydroxyon 04-01 Vitamin D 25-OH 36.7 ng/mL Normal 30-100 [facility] Comment on above: Result Comment: Amanda min D Status Deficiency: <20 ng/mL (50nmol/L) Insufficiency: 20-30 ng/mL (50-75 nmol/L) Sufficiency: 30-100 ng/mL (75-250 nmol/L) Toxicity: >100 ng/mL (>250 nmol/L) Performed By: #### L 500.2500, L506.1001 #### [facility] [address] [place], [address] Sinus/Facial Boneon 02-25-20 25 Sinus/Facial Bone [facility] Imaging Services [address] [place] [address] Sinus/Facial Bone MR#: [id number] Acct: [id number] Name: YOLANDA BUCK Rep #: [id number] : 1995 M 29 From: Erick Barlow MD PCP: Dr. Lucia Montes MD Status: REG CLI Study: Sinus/Facial Bone Date of Exam: 02/24/25 Exam# [id number] Ordering Dr: Carlos Javier MD PROCEDURE: SINUS/FACIAL [...] appearing sinus disease as above. Reading Location: [id number] CC: Dr. Lucia Montes MD; Dr. Carlos Javier MD Machine Iii Coremaker: Signed Normal [facility] Neurology Visit Reporton Neurology Visit Report [facility] [address], [address] [place] [address] OFFICE VISIT Date of Service: 12/06/24 MR#: [id number] Acct: [id number] Name: YOLANDA BUCK Rep #: [id number] : 1995 Provider: Dr. Valeriano connolly MD Age/Sex: 29/M Location: [facility]. Status: Signed HPI HPI Chief Complaint: Establish Care Details: The patient is a 29-year-old right handed male who presents to [facility]. He was referred 11/11/[address] Lucia Montes with [facility] for cervical radiculopathy. This patient [...] get better when he takes a decongestant [id number]. Patient is otherwise in good health. He [...] Initial episode began when he lifted a [employer] turn sewer grate. He works for the [employer] and feels that he had an episode [...] day month and year. Language shows no switchboard operator receptionist expression repetition naming. Insight and judgment is normal. Mood and affect is normal. Memory 3/. CN II-XII: Pupils equal round reactive. Visual [...] while l (more content not included)... Normal [facility] NCS and/or EMG Patienton NCS and/or EMG Patient [facility] Pulmonary Services/Neurology [address] [place] [address] MR#: [id number] Acct: [id number] Name: YOLANDA BUCK Rep #: [id number] : 1995 29 From: Mary Lou Brito MD Referring Dr: Lucia Montes MD Status: REG CLI Location: PSN Date: 11/03/24 Sex: M C NCS and/or [...] Multi Select Codes Neurology Neurology Interp Codes: 03116-88 Musc test done w/n test comp (interp) and 79269-85 Nrv cndj tst 5-6 studies (interp) 11/03/24 1310 Date Mary Lou Brito MD CC: Dr. Mary Lou Brito MD; Dr. Lucia Montes MD Date Dictated: 11/03/24 130 Date Transcribed: 11/03/241304 Machine Iii Coremaker: AA Signed Normal [facility] Testosterone, Serum Totalon 10-14-2024 Testosterone [Mass/Vol] 286.10 ng/dL Normal [facility] Comment on above: Result Comment: CENT RAL 90% REFERENCE RANGES MALE AGE <50 197.44 - 669.58 ng/dL MALE AGE > or = 50 187.72 - 684.19 ng/dL FEMALE AGE <50 8.38 - 35.01 ng/dL FEMALE AGE > or = 50 <7.00 - 35.92 ng/dL Effective as of 05/15/21 Performed By: #### L 500.2500, L506.1001 #### [facility] [address] [place], [address] Vitamin D,25 Hydroxyon 10-14 Vitamin D 25-OH 53.5 ng/mL Normal [facility] Comment on above: Result Comment: Amanda min D 25(OH) Status Range Deficiency <20 ng/mL (50nmol/L) Insufficiency 20 - 30 ng/mL (50 - 75 nmol/L) Sufficiency 30 - 100 ng/mL (75 - 250 nmol/L) Toxicity >100 ng/mL (>250 nmol/L) Performed By: #### L 509.3000, L506.1000 #### [facility] [address] [place], [address] Orthopedic Visit Reporton Orthopedic Visit Report [facility] [address] [place] [address] [address] [place] [address] OFFICE VISIT Date of Service: 09/30/24 MR#: [id number] Acct: [id number] Name: YOLANDA BUCK Rep #: [id number] : 1995 Provider: Dr. Rancho Fernando MD Age/Sex: 29/M Location: [facility] Status: Signed Intake Vital Signs 08/31/24 08:25 [...] time con (more content not included)... Normal [facility] Orthopedic Visit Reporton Orthopedic Visit Report [facility] [address] [place] [address] OFFICE VISIT Date of Service: 09/15/24 MR#: [id number] Acct: [id number] Name: YOLANDA BUCK Rep #: [id number] : 1995 Provider: Dr. Rancho Fernando MD Age/Sex: 29/M Location: [facility] Status: Signed Intake Vital Signs 08/31/24 08:25 [...] made by me, Dr. Rancho Fernando MD 09/15/24 0828. Part of today???s visit was documented by [...] management a (more content not included)... Normal [facility] MR C-SPINE W/Oon 09-14-2024 MR C-SPINE W/O [...] agree with the resident's interpretation. Normal [facility] Orthopedic Visit Reporton Orthopedic Visit Report [facility] [address] [place] [address] OFFICE VISIT Date of Service: 08/31/24 MR#: [id number] Acct: [id number] Name: YOLANDA BUCK Rep #: [id number] : 1995 Provider: PARI Hart Age/Sex: 29/M Location: [facility] Status: Signed Intake Vital Signs 08/31/24 08:25 [...] the decisions made by me, PARI Hart 08/31/24822. Part of today???s visit was documented by [...] with Tylenol (more content not included)... Normal [facility] Inital Evaluation (1) - PTon 08-19-2024 Inital Evaluation (1) - PT [facility] Physical Therapy [facility] [address] [place] [address]. [address] [place] [address] / REHABILITATION SERVICES INITIAL EVALUATION MR#: [id number] Acct: [id number] Name: YOLANDA BCUK Rep #: [id number] : 1995 29 From: Rogelio Parsons PT, ATC Referring Dr.: Dr. Lucia Montes MD Status: REG RCR Insurance: [facility] SELF PAY INSURANCE Patient's Visit Information Visit Information Visit Information: YOLANDA BUCK is a 29 year old M referred to Physical Therapy by Lucia Montes MD with a diagnosis of Neck pain. Date of Evaluation: 08/19/24 Physical Therapist: Rogelio Parsons, PT, ATC Visit Plan Frequency: 2x /Week Duration: 2-4 Weeks Plan: Postural edu, DTR, retractions, scap stab ex's, and HEP Subjective Subjective: Pt reports he has had neck and upper back pain since the beginning of the year. Pt notes he works for the [employer] and was changing water basins when he [...] training, Active ROM, Sindhu Exercises and Scapular Strength/Stabilizati on For the Purpose of:: To decrease pain, [...] to be FAXED BACK to us at [phone] for Medicare purposes. For Medicare only, by signing this I certify the plan of care. Please let me know if there are questions or concerns regarding this plan of care. Physician Signature: D ate: 08/19/24 1703 CC: Dr. Lucia Montes MD [facility] Signed Normal [facility] Lyme Screen W/Reflex WBon LYME SCREEN Ab Negative Normal Negative [facility] Comment on above: Result Comment: Lyme antibodies not detected. Reflex testing is not indicated. No laboratory evidence of infection with B. burgdorferi (Lyme disease). Negative results may occur in patients recently infected (less than or equal to 14 days) with B. burgdorferi. If recent infection is suspected, repeat testing on a new sample collected in 7 to 14 days is recommended. Performed at: [facility] [id number] Switching Clerk: Lio Glynn PhD, Phone: [phone] Performed By: #### L 1154.5302 #### [facility] [address] [place], [address] CBC W/Diff, Automatedon 10-2 -2023 Absolute Lymph 2.99 X10 3/uL Normal 0.83-4.51 [facility] Comment on above: Performed By: #### L 500.4050, L506.1000, L501.9520, L100.0100 #### [facility] [address] [place], [address] Absolute Neut 4.0 X10 3/uL Normal 2.0-7.7 [facility] Comment on above: Performed By: #### L 500.4050, L506.1000, L501.9520, L100.0100 #### [facility] [address] [place], [address] Basophils/100 WBC (Bld) 0.3 % Normal 0-1 [facility] Comment on above: Performed By: #### L 500.4050, L506.1000, L501.9520, L100.0100 #### [facility] [address] [place], [address] Eosinophils/100 WBC (Bld) 0.4 % Normal 0-5 [facility] Comment on above: Performed By: #### L 500.4050, L506.1000, L501.9520, L100.0100 #### [facility] [address] [place], [address] Erythrocyte distribution width (RBC) [Ratio] 11.9 % Normal 11.6-14.6 [facility] Comment on above: Performed By: #### L 500.4050, L506.1000, L501.9520, L100.0100 #### [facility] [address] [place], [address] Hematocrit (Bld) [Volume fraction] 41.6 % Normal 40-54 [facility] Comment on above: Performed By: #### L 500.4050, L506.1000, L501.9520, L100.0100 #### [facility] [address] [place], [address] Hemoglobin (Bld) [Mass/Vol] 13.7 g/dL Normal 13.0-16.5 [facility] Comment on above: Performed By: #### L 500.4050, L506.1000, L501.9520, L100.0100 #### [facility] [address] [place], [address] IG% 0.300 Normal 0.0-0.9 [facility] Comment on above: Result Comment: IG% - Immature Granulocytes (promyelocytes, myelocytes and metamyelocytes) > 1% indicates that a LEFT SHIFT is Present. Performed By: #### L 500.4050, L506.1000, L501.9520, L100.0100 #### [facility] [address] [place], [address] Lymphocytes/100 WBC (Bld) 39.6 % Normal 19-41 [facility] Comment on above: Performed By: #### L 500.4050, L506.1000, L501.9520, L100.0100 #### [facility] [address] [place], [address] MCH (RBC) [Entitic mass] 29.8 pg Normal 27.0-32.0 [facility] Comment on above: Performed By: #### L 500.4050, L506.1000, L501.9520, L100.0100 #### [facility] [address] [place], [address] MCHC (RBC) [Mass/Vol] 32.9 g/dL Normal 32-36 [facility] Comment on above: Performed By: #### L 500.4050, L506.1000, L501.9520, L100.0100 #### [facility] [address] [facility] [place], [address] MCV (RBC) [Entitic vol] 90.6 fL Normal 80-94 [facility] Comment on above: Performed By: #### L 500.4050, L506.1000, L501.9520, L100.0100 #### [facility] [address] [place], [address] Monocytes/100 WBC (Bld) 6.5 % Normal 0-10 [facility] Comment on above: Performed By: #### L 500.4050, L506.1000, L501.9520, L100.0100 #### [facility] [address] [place], [address] Neutrophils/100 WBC (Bld) 52.9 % Normal 47-70 [facility] Comment on above: Performed By: #### L 500.4050, L506.1000, L501.9520, L100.0100 #### [facility] [address] [place], [address] Nucleated RBC (Bld) [#/Vol] 0 10*3/uL Normal 0-5 [facility] Comment on above: Performed By: #### L 500.4050, L506.1000, L501.9520, L100.0100 #### [facility] [address] [place], [address] Platelet mean volume (Bld) [Entitic vol] 10.3 fL Normal 6.2-12.0 [facility] Comment on above: Performed By: #### L 500.4050, L506.1000, L501.9520, L100.0100 #### [facility] [address] [place], [address] Platelets (Bld) [#/Vol] 241 10*3/uL Normal 150-450 [facility] Comment on above: Performed By: #### L 500.4050, L506.1000, L501.9520, L100.0100 #### [facility] Laboratory [address] [place], [address] RBC (Bld) [#/Vol] 4.59 10*6/uL Low 4.6-6.2 [facility] Comment on above: Performed By: #### L 500.4050, L506.1000, L501.9520, L100.0100 #### [facility] Laboratory [address] [place], [address] RDW SD 39.7 fl Normal 35.1-43.9 [facility] Comment on above: Performed By: #### L 500.4050, L506.1000, L501.9520, L100.0100 #### [facility] Laboratory [address] [place], [address] WBC (Bld) [#/Vol] 7.6 10*3/uL Normal 4.4-11.0 [facility] Comment on above: Performed By: #### L 500.4050, L506.1000, L501.9520, L100.0100 #### [facility] Laboratory [address] [place], [address] Cerv Spine Obl/Flex/Ext Comp on 08-10-2024 Cerv Spine Obl/Flex/Ext Comp [facility] Imaging Services [address] [place] [address] Cerv Spine Obl/Flex/Ext Comp MR#: [id number] Acct: [id number] Name: YOLANDA BUCK Rep #: [id number] : 1995 M 29 From: [facility] [place] PCP: Dr. Lucia Montes MD Status: REG CLI Study: Cerv Spine Obl/Flex/Ext Comp Date of Exam: Exam# [id number] Ordering Dr: Lucia Montes MD [id number] INDICATION: neck pain EXAMINATION/TECHNIQU E: X-RAY - XR Spine Cervical 6 or More Views COMPARISON: No relevant prior comparison study available ____ FINDINGS: VERTEBRAE: Preserved vertebral body height. No [...] EDT , CC: Dr. Lucia Montes MD Machine Iii Coremaker: Signed Normal [facility] Comprehensive Metabolic Prof ilon 08-10-2024 Albumin [Mass/Vol] 4.2 g/dL Normal 3.2-5.0 [facility] Comment on above: Performed By: #### L 500.4050, L506.1000, L501.9520, L100.0100 #### [facility] Laboratory [address] [place], [address] Albumin/Globulin [Mass ratio] 1.4 {ratio} Normal 0.9-2.4 [facility] Comment on above: Performed By: #### L 500.4050, L506.1000, L501.9520, L100.0100 #### [facility] [address] [place], [address] ALK P 59 U/L Normal 45-117 [facility] Comment on above: Performed By: #### L 500.4050, L506.1000, L501.9520, L100.0100 #### [facility] Laboratory [address] [place], [address] ALT [Catalytic activity/Vol] 18 U/L Normal 16-61 [facility] Comment on above: Performed By: #### L 500.4050, L506.1000, L501.9520, L100.0100 #### [facility] [address] [place], [address] AST [Catalytic activity/Vol] 16 U/L Normal 15-37 [facility] Comment on above: Performed By: #### L 500.4050, L506.1000, L501.9520, L100.0100 #### [facility] Laboratory [address] [place], [address] Bilirubin [Mass/Vol] 0.60 mg/dL Normal 0.20-1.00 [facility] Comment on above: Result Comment: For patients on eltrombopag therapy, use of Dimension [place] TBIL is not recommended. Performed By: #### L 500.4050, L506.1000, L501.9520, L100.0100 #### [facility] Laboratory [address] [place], [address] BUN/CRE 14.0 RATIO Normal 10-20 [facility] Comment on above: Performed By: #### L 500.4050, L506.1000, L501.9520, L100.0100 #### [facility] Laboratory [address] [place], [address] CA,Total 9.0 mg/dL Normal 8.5-10.1 [facility] Comment on above: Performed By: #### L 500.4050, L506.1000, L501.9520, L100.0100 #### [facility] Laboratory [address] [place], [address] Chloride [Moles/Vol] 108 mmol/L High 98-107 [facility] Comment on above: Performed By: #### L 500.4050, L506.1000, L501.9520, L100.0100 #### [facility] Laboratory [address] [place], [address] CO2 [Moles/Vol] 27.0 mmol/L Normal 21.0-32.0 [facility] Comment on above: Performed By: #### L 500.4050, L506.1000, L501.9520, L100.0100 #### [facility] [address] [place], [address] Creatinine [Mass/Vol] 1.07 mg/dL Normal 0.70-1.30 [facility] Comment on above: Result Comment: The validity of the calculated GFR GFRAA in patients over 70 years has not been determined. Clinical correlation is essential. Performed By: #### L 500.4050, L506.1000, L501.9520, L100.0100 #### [facility] [address] [place], [address] EST GFR - AA 103 mL/min Normal >60 [facility] Comment on above: Result Comment: Afri can [facility] GFR Calc Performed By: #### L 500.4050, L506.1000, L501.9520, L100.0100 #### [facility] Laboratory [address] [place], [address] GAP 5 Normal 5-15 [facility] Comment on above: Performed By: #### L 500.4050, L506.1000, L501.9520, L100.0100 #### [facility] [address] [place], [address] GFR/1.73 sq M.predicted among non-blacks MDRD (S/P/Bld) [Vol rate/Area] 86 mL/min/{1.73_m2} Normal >60 [facility] Comment on above: Result Comment: Non- GFR Calc Performed By: #### L 500.4050, L506.1000, L501.9520, L100.0100 #### [facility] [address] [place], [address] Globulin (S) [Mass/Vol] 3.1 g/dL Normal 2.2-4.2 [facility] Comment on above: Performed By: #### L 500.4050, L506.1000, L501.9520, L100.0100 #### [facility] [address] [place], [address] Glucose [Mass/Vol] 98 mg/dL Normal 74-106 [facility] Comment on above: Performed By: #### L 500.4050, L506.1000, L501.9520, L100.0100 #### [facility] Laboratory [address] [place], [address] Potassium [Moles/Vol] 3.7 mmol/L Normal 3.5-5.1 [facility] Comment on above: Performed By: #### L 500.4050, L506.1000, L501.9520, L100.0100 #### [facility] [address] [place], [address] Sodium [Moles/Vol] 140 mmol/L Normal 136-145 [facility] Comment on above: Performed By: #### L 500.4050, L506.1000, L501.9520, L100.0100 #### [facility] Laboratory [address] [place], [address] T PROT 7.3 g/dL Normal 6.4-8.2 [facility] Comment on above: Performed By: #### L 500.4050, L506.1000, L501.9520, L100.0100 #### [facility] Laboratory [address] [place], [address] Urea nitrogen [Mass/Vol] 15 mg/dL Normal 7-18 [facility] Comment on above: Performed By: #### L 500.4050, L506.1000, L501.9520, L100.0100 #### [facility] Laboratory [address] [place], [address] Thoracic Spine 2 Viewson Thoracic Spine 2 Views [facility] Imaging Services [address] [place] [address] Thoracic Spine 2 Views MR#: [id number] Acct: [id number] Name: YOLANDA BUCK Rep #: [id number] : 1995 M 29 From: [facility] [place] PCP: Dr. Lucia Montes MD Status: REG CLI Study: Thoracic Spine 2 Views Date of Exam: 08/10/24 Exam# [id number] Ordering Dr: Lucia Montes MD [id number] INDICATION: BACK PAIN EXAMINATION/TECHNIQU E: X-RAY - XR Spine Thoracic 2 Views COMPARISON: No relevant prior comparison study available ___ FINDINGS: VERTEBRAE: Preserved vertebral body height. No fracture. No spondylolisthesis. Preservation of the normal thoracic kyphosis. Mild dextroscoliosis. DISCS: Disc spaces are maintained. INCLUDED CHEST/ABDOMEN: No acute abnormalities. RAD/Thoracic Spine 2 Views IMPRESSION: Dextroscoliosis of the thoracic spine. Electronically Signed: Armani Hercules MD at 13:26 EDT , CC: Dr. Lucia Montes MD Machine Iii Coremaker: Signed Normal [facility] Thyroid Stim Hormone (TSH)on 08-10-2024 TSH 2.370 uIU/mL Normal 0.358-3.740 [facility] Comment on above: Performed By: #### L 500.4050, L506.1000, L501.9520, L100.0100 #### [facility] Laboratory [address] [place], [address] Vitamin D,25 Hydroxyon 08-10 Vitamin D 25-OH 25.7 ng/mL Normal [facility] Comment on above: Result Comment: Amanda min D 25(OH) Status Range Deficiency <20 ng/mL (50nmol/L) Insufficiency 20 - 30 ng/mL (50 - 75 nmol/L) Sufficiency 30 - 100 ng/mL (75 - 250 nmol/L) Toxicity >100 ng/mL (>250 nmol/L) Performed By: #### L 500.4050, L506.1000, L501.9520, L100.0100 #### [facility] [address] [place], [address] 36on 06-11-2023 36 Spoke to patient, his father Oscar will pick these up for him. [facility] 36 See new TE patient needs to picker tender helper a copy of labs. [facility] 36 Spoke to patient, his father Oscar will be picking these up for him. [facility] 36 Name of caller: Yolanda Buck Contact phone number: [phone] Relationship to Patient: Patient Provider: Maximo Mathis Practice: [facility] Chief Complaint/Reason for Call: Caller is needing his blood results re sent to a different email: [email or web address] Best time of day caller can be reached: any Patient advised that office/PCP has 24-48 business hours to return their call: yes [facility] 36on 06-10-2023 36 Name of caller: yolanda Contact phone number: [phone] Relationship to Patient: patient Provider: Dr. mathis Practice: [facility] Chief Complaint/Reason for Call: pt called in would like to picker tender helper a copy of lab results, can not send to his job from his email, please call and advise when printed off and ready for picker tender helper Best time of day caller can be reached: AM Patient advised that office/PCP has 24-48 business hours to return their call: Yes [facility] Check Orthostatic Vital Sign son 06-06-2023 Interpretation and review of laboratory results Abnormal [facility] Orthostatic Blood Pressure Laying 124/70 55 Standing 112/74 67 Standing 98/78 83 [facility] Office Visiton 06-06-2023 Follow-up visit [id number] Yolanda Buck 1995 M Date Provider Department Center 06/06/2023 [id number] BYRNE [facility] Family History Problem Relation Age of Onset No Known Problems Mother Hypertension Father Hyperlipidemia Father No Known Problems Brother Stroke Father's Brother No Known Problems Maternal Grandmother Family Status - Relation Status Age at Mother Alive Father Alive Brother Alive Father's Brother Alive Maternal Grandmother Alive Level of Service:01637 PA INITIAL PREVENTIVE MEDICINE NEW PT AGE 18-39YRS Reason for Visit and Comments: New Patient [542] Dizziness [712817] Labs Only [420404] Annual Exam [83] Normal [facility] PATINSon 06-06-2023 PATINS Increase salt intake, increase fluid intake up to 2.5 L daily. Normal [facility] Progress Noteon 06-06-2023 Progress Note Orthostatic blood pressures + , check cmp, cbc, increase sodium and water intake up to 2.5 L daily. Normal [facility] Progress Note 06/06/2023 Yolanda Buck (: 1995) [...] up for as directed pending test results. SUBJECTIVE/OBJECTIVE : HPI - Yolanda Buck presents as new patient, previous primary care provider Abdelrahman, last seen ?prior to 2014 by previous provider. Specialists/other providers? No Chief complaint(s): New Patient, Dizziness, Labs Only, and Annual Exam [facility] for about 11 years, , expecting 1st child in July. Has 2 dogs at home and 's bird. family hx htn,hypercholesterol emia, melanoma, stroke. non smoker, no etoh, exercises [...] son, ramos retriever - susana and a sao tomean buckley- maria and 's matthew- morris [facility] department. 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 Social Determinants of Health Financial Resource Strain: [...] tremors, seizures, syncope, weakness, numbness and headaches. Psychiatric/Behavior al: Negative. Vitals: 06/06/23 0806 BP: 100/64 Pulse: 55 Resp: 16 Temp: 37.1 ?C (98.7 ?F) TempSrc: Oral SpO2: 100% Weight: 197 lb 6.4 oz (89.5 kg) Height: 6' 0.05 (1.83 m) Physical Exam Vitals reviewed. Constitutional: [...] posterior oroph (more content not included)... Normal [facility] Progress Note Orthostatic Blood Pressure Laying 124/70 55 Standing 112/74 67 Standing 98/78 83 Normal [facility] 36on 06-02-2023 36 S: The patient is calling the [facility] about B: This has been present [...] physician for this Protocols used: Dizziness - Lightheadedness-ADUL [facility] Vital Signs Date Time Vital Sign Value Performing Clinician Facility 06-08-2025 15:08-0400 Body height 182.88 cm Lucia Mnotes MD Work Phone: [facility] 06-08-2025 15:08-0400 Body mass index (BMI) [Ratio] 29.5 kg/m2 Lucia Montes MD Work Phone: [facility] 06-08-2025 15:08-0400 Body weight 98.88 kg Lucia Montes MD Work Phone: [facility] 06-08-2025 15:08-0400 Diastolic blood pressure 83 mm[Hg] Lucia Montes MD Work Phone: [facility] 06-08-2025 15:08-0400 Heart rate 70 /min Lucia Montes MD Work Phone: [facility] 06-08-2025 15:08-0400 Respiratory rate 16 /min Lucia Montes MD Work Phone: [facility] 06-08-2025 15:08-0400 Systolic blood pressure 126 mm[Hg] Lucia Montes MD Work Phone: [facility] 05-10-2025 10:53-0400 Body mass index (BMI) [Ratio] 26.31 kg/m2 Wilfrido Haynes MD Work Phone: [facility] 05-10-2025 10:53-0400 Body weight 88 kg Wilfrido Haynes MD Work Phone: [facility] 12-06-2024 15:24-0500 Body height 182.88 cm Lucia Montes MD Work Phone: [facility] 12-06-2024 15:24-0500 Body mass index (BMI) [Ratio] 27.2 kg/m2 Lucia Montes MD Work Phone: [facility] 12-06-2024 15:24-0500 Body temperature 98.6 [degF] Lucia Montes MD Work Phone: [facility] 12-06-2024 15:24-0500 Body weight 91.17 kg Lucia Montes MD Work Phone: [facility] 12-06-2024 15:24-0500 Diastolic blood pressure 76 mm[Hg] Lucia Montes MD Work Phone: [facility] 12-06-2024 15:24-0500 Heart rate 96 /min Lucia Montes MD Work Phone: [facility] 12-06-2024 15:24-0500 Respiratory rate 16 /min Lucia Montes MD Work Phone: [facility] 12-06-2024 15:24-0500 SaO2% (BldA) [Mass fraction] 99 % Lucia Montes MD Work Phone: [facility] 12-06-2024 15:24-0500 Systolic blood pressure 124 mm[Hg] Lucia Montes MD Work Phone: [facility] 03-29-2024 15:54-0400 Body mass index (BMI) [Ratio] 26.34 kg/m2 Sruthi Gomesko DO Work Phone: [facility] 03-29-2024 15:54-0400 Body temperature 98.1 [degF] Sruthi Mesko DO Work Phone: [facility] 03-29-2024 15:54-0400 Body weight 88.09 kg Sruthi Mesko DO Work Phone: [facility] 03-29-2024 15:54-0400 Diastolic blood pressure 69 mm[Hg] Sruthi Mesko DO Work Phone: [facility] 03-29-2024 15:54-0400 Heart rate 74 /min Sruthi Mesko DO Work Phone: [facility] 03-29-2024 15:54-0400 Respiratory rate 16 /min Sruthi Mesko DO Work Phone: [facility] 03-29-2024 15:54-0400 SaO2% (BldA) [Mass fraction] 98 % Sruthi Mesko DO Work Phone: [facility] 03-29-2024 15:54-0400 Systolic blood pressure 135 mm[Hg] Sruthi Gomesko DO Work Phone: [facility] 03-12-2024 11:30-0400 Body mass index (BMI) [Ratio] 26.27 kg/m2 Mireya Tyler MD Work Phone: [facility] 03-12-2024 11:30-0400 Body temperature 98.01 [degF] Mireya Tyler MD Work Phone: [facility] 03-12-2024 11:30-0400 Body weight 87.86 kg Mireya Tyler MD Work Phone: [facility] 03-12-2024 11:30-0400 Diastolic blood pressure 69 mm[Hg] Mireya Tyler MD Work Phone: [facility] 03-12-2024 11:30-0400 Heart rate 64 /min Mireya Tyler MD Work Phone: [facility] 03-12-2024 11:30-0400 SaO2% (BldA) [Mass fraction] 98 % Mireya Tyler MD Work Phone: [facility] 03-12-2024 11:30-0400 Systolic blood pressure 111 mm[Hg] Mireya Tyler MD Work Phone: [facility] 02-25-2024 10:56-0400 Body mass index (BMI) [Ratio] 25.47 kg/m2 Sruthi Gomesko DO Work Phone: [facility] 02-25-2024 10:56-0400 Body temperature 98.01 [degF] Sruthi Mesko DO Work Phone: [facility] 02-25-2024 10:56-0400 Body weight 85.19 kg Sruthi Mesko DO Work Phone: [facility] 02-25-2024 10:56-0400 Diastolic blood pressure 82 mm[Hg] Sruthi Mesko DO Work Phone: [facility] 02-25-2024 10:56-0400 Heart rate 92 /min Sruthi Mesko DO Work Phone: [facility] 02-25-2024 10:56-0400 Respiratory rate 16 /min Sruthi Mesko DO Work Phone: [facility] 02-25-2024 10:56-0400 SaO2% (BldA) [Mass fraction] 98 % Sruthi Mesko DO Work Phone: [facility] 02-25-2024 10:56-0400 Systolic blood pressure 122 mm[Hg] Sruthi Mesko DO Work Phone: [facility] 02-17-2024 10:41-0400 Diastolic blood pressure 79 mm[Hg] Sruthi Mesko DO Work Phone: [facility] 02-17-2024 10:41-0400 Heart rate 107 /min Sruthi Mesko DO Work Phone: [facility] 02-17-2024 10:41-0400 Systolic blood pressure 121 mm[Hg] Sruthi Mesko DO Work Phone: [facility] 02-17-2024 10:33-0400 Body height 182.9 cm Sruthi Mesko DO Work Phone: [facility] 02-17-2024 10:33-0400 Body mass index (BMI) [Ratio] 26.65 kg/m2 Sruthi Mesko DO Work Phone: [facility] 02-17-2024 10:33-0400 Body temperature 98.91 [degF] Sruthi Gomesko DO Work Phone: [facility] 02-17-2024 10:33-0400 Body weight 89.13 kg Sruthi Gomesko DO Work Phone: [facility] 02-17-2024 10:33-0400 Respiratory rate 14 /min Sruthi Gomesko DO Work Phone: [facility] 02-17-2024 10:33-0400 SaO2% (BldA) [Mass fraction] 98 % Sruthi Gomesko DO Work Phone: [facility] 06-06-2023 09:12-0400 Diastolic blood pressure 78 mm[Hg] Brooklyn Bridenthal [employer] Work Phone: [employer] 06-06-2023 09:12-0400 Heart rate 83 /min Brooklyn Bridenthal [employer]ING [employer] Work Phone: [employer] 06-06-2023 09:12-0400 Systolic blood pressure 98 mm[Hg] Brooklyn Bridenthal [employer]ING [employer] Work Phone: [employer] 06-06-2023 08:06-0400 Body height 183 cm Brooklyn Bridenthal [employer]PERVISING [employer] Work Phone: [employer] 06-06-2023 08:06-0400 Body mass index (BMI) [Ratio] 26.74 kg/m2 Brooklyn Bridenthal [employer]PERVISING [employer] Work Phone: [employer] 06-06-2023 08:06-0400 Body temperature 98.71 [degF] Brooklyn Bridenthal SUPERVISING [employer]ER [employer] Work Phone: [employer] 06-06-2023 08:06-0400 Body weight 89.54 kg Brooklyn Bridenthal SUPERVISING [employer]ER [employer] Work Phone: [employer] 06-06-2023 08:06-0400 Respiratory rate 16 /min Brooklyn Bridenthal [employer]PERVISING [employer] Work Phone: [facility] 06-06-2023 08:06-0400 SaO2% (BldA) [Mass fraction] 100 % Brooklyn Byrne SUPERVISING [employer]ER [employer] Work Phone: [facility] Encounters Encounter Date Encounter Type Care Provider Facility Start: 07-14-2025 ambulatory Lucia Renata Facility:[facility] Start: 07-11-2025 ambulatory [facility] Facility:[facility] Start: 06-08-2025 End: 06-08-[address] Shay Jiang MD -[place] [facility] Work Phone: Start: 06-08-2025 End: 06-08-2025 ambulatory Lucia Montes MD Work Phone: -[facility] Start: 06-07-2025 Registered Recurring Lucia ramos MD Work Phone: -Physical Therapy Work Phone: Start: 06-06-2025 ambulatory Lucia [place]oke Facility:[facility] Start: 05-10-2025 End: 05-10-2025 Office outpatient new 45 minutes Wilfrido Haynes MD Work Phone: [facility] Comment on above: Deviated nasal septu m (Primary Dx); Benign neoplasm of sphenoid bone; Frequent headaches Start: 04-26-2025 ambulatory Soniarubina Renata Facility:[facility] Start: 04-26-2025 Non-patient / Non-visit Dr. Cj DAVILA -[facility] Start: 04-26-2025 Encounter for genera l adult medical examination without abnormal findings Lucia Montes [facility] Start: 04-26-2025 End: 04-26-2025 ambulatory Lucia Montes MD Work Phone: -Cardiovascular Services Start: 04-26-2025 End: 04-26-[address] Lucia Montes MD -Cardiovascular Services Work Phone: Start: 04-26-2025 End: 04-26-2025 ambulatory Lucia Montes Facility:[facility] Start: 04-23-2025 End: 04-23-2025 ambulatory Lucia Montes MD Work Phone: -Laboratory Start: 04-23-2025 End: 04-23-[address] Lucia Montes MD -Laboratory Work Phone: Start: 04-23-2025 End: 04-23-2025 ambulatory [facility] Facility:[facility] Start: 04-01-2025 End: 04-01-2025 ambulatory Lucia Montes MD Work Phone: [facility] Work Phone: Start: 04-01-2025 End: 04-01-[address] Lucia Montes MD -Laboratory [facility] Start: 04-01-2025 End: 04-01-2025 ambulatory [facility] Facility:[facility] Start: 02-24-2025 End: 02-24-2025 ambulatory Lucia Montes MD Work Phone: [facility] Work Phone: Start: 02-24-2025 End: 02-24-[address] Carlos Javier MD -[facility] Work Phone: Start: 02-24-2025 End: 02-24-2025 ambulatory Carlos Javier Facility:[facility] Start: 12-06-2024 End: 12-06-[address] Valeriano Trujillo MD -[facility] Work Phone: Start: 12-06-2024 End: 12-06-2024 ambulatory [facility] Facility:[facility] Start: 11-10-2024 End: 11-11-2024 Chart abstracting Satish Quiñonez MD Work Phone: Neurology Start: 11-03-2024 ambulatory [facility] Facility:[facility] Start: 11-03-2024 Non-patient / Non-visit Dr. Mary Lou duff MD -[facility] Start: 11-03-2024 End: 11-03-[address] Lucia Montes MD -Pulmonary Services/Neurology Work Phone: Start: 11-03-2024 End: 11-03-2024 ambulatory Chalon Renata Facility:[facility] Start: 10-14-2024 End: 10-14-2024 ambulatory Chalon Renata Facility:[facility] Start: 10-11-2024 End: 10-11-2024 ambulatory Chalon Renata Facility:[facility] Start: 10-06-2024 ambulatory Chalon Renata Facility:[facility] Start: 09-30-2024 End: 09-30-2024 ambulatory Rancho Fernando Facility:[facility] Start: 09-15-2024 End: 09-15-2024 ambulatory Rancho Fernando Facility:[facility] Start: 09-14-2024 End: 09-14-2024 ambulatory UNKNOWN PROVIDER [facility] Start: 08-31-2024 End: 08-31-2024 ambulatory Chalon Renata Facility:[facility] Start: 08-16-2024 End: 08-16-2024 ambulatory Chalon Renata Facility:[facility] Start: 08-10-2024 End: 08-10-2024 ambulatory Chalon Renata Facility:[facility] Start: 03-29-2024 End: 03-29-2024 Office outpatient visit 15 minutes Sruthi Kyes DO Work Phone: [facility] Comment on above: Anxiety (Primary Dx) ; Overweight with body mass index (BMI) of 26 to 26.9 in adult; Pressure sensation in both ears; Middle ear effusion, bilateral; Routine health maintenance; Fatigue, unspecified type Start: 03-29-2024 End: 03-29-2024 Patient encounter status Sruthi Keys DO Work Phone: [facility] Work Phone: Start: 03-12-2024 End: 03-12-2024 Office outpatient visit 25 minutes Mireya Tyler MD Work Phone: [facility] Comment on above: Eustachian tube dysf unction, right (Primary Dx) Start: 02-25-2024 End: 02-25-2024 Office outpatient visit 15 minutes Sruthi Keys DO Work Phone: [facility] Comment on above: Anxiety (Primary Dx) ; Postural dizziness with presyncope; Tension headache; Acute reaction to stress Start: 02-24-2024 End: 02-24-2024 Subsequent hospital visit by physician Sunny Espino Cr Nonv1 Holter/Ecg Resource [facility] Comment on above: Orthostatic hypotens ion; Postural dizziness with presyncope Start: 02-17-2024 End: 02-17-2024 Office outpatient new 45 minutes Sruthi L Amy DO Work Phone: [facility] Comment on above: Postural dizziness w ith presyncope (Primary Dx); Orthostatic hypotension; Hypokalemia; Hospital discharge follow-up; Overweight with body mass index (BMI) of 26 to 26.9 in adult; Middle ear effusion, bilateral Start: 06-11-2023 Telephone encounter Maximo Broussard MD Work Phone: [facility] Clinical Communication Comment on above: Other Start: 06-06-2023 End: 06-06-2023 ambulatory [facility] Start: 06-06-2023 End: 06-06-2023 Encounter for general adult medical examination without abnormal findings [facility] Start: 06-06-2023 End: 06-06-2023 Initial preventive medicine new pt age 18-39yrs Brooklyn Byrne SUPERVISING PRODUCER - [employer]OOK Work Phone: [facility] Comment on above: Annual physical exam (Primary Dx); Orthostatic hypotension; Orthostatic lightheadedness; Screening for cholesterol level; Screening for deficiency anemia; Need for hepatitis C screening test; Screening for HIV (human immunodeficiency virus) Start: 06-06-2023 End: 06-06-2023 Patient encounter procedure Brooklynlinda Merrittvincent SUPERVISING PRODUCER - LEAD [employer]OOK Work Phone: [facility] [employer] Work Phone: Start: 06-02-2023 ambulatory Ariella Beasley RN [facility] Clinical Communication Start: 06-02-2023 Patient encounter procedure Ariella Beasley RN [facility] Clinical Communication Procedures Date Procedure Procedure Detail Performing Clinician Start: 04-01-2025 Vitamin D, 25-hydrox y measurement Lucia Montes MD Work Phone: Comment on above: Vitamin D StatusDefi ciency: <20 ng/mL (50nmol/L)Insufficiency: 20-30 ng/mL (50-75 nmol/L)Sufficiency: 30-100 ng/mL (75-250 nmol/L)Toxicity: >100 ng/mL (>250 nmol/L) Start: 02-24-2025 CT of face Lucia bartholomew MD Work Phone: Start: 06-06-2023 ORTHOSTATIC BLOOD PA ESSURE AND PULSE Brooklynlinda Byrne SUPERVISING PRODUCER - [employer]OOK Work Phone: Start: 06-06-2023 Lipid 1996 panel - S harsh or Plasma Sruthi Keys DO Work Phone: Start: 06-05-2023 Adult depression scr eening assessment Brooklyn Renéenthal SUPERVISING [employer]UCER [employer] Work Phone: Plan of Treatment Date Care Activity Detail Author Start: 2043 Zoster Vaccines (1 o f 2) Zoster Vaccines (1 of 2) [facility] Start: 06-06-2028 Lipid panel Lipid Panel [facility] Start: 07-12-2025 End: 07-12-2025 Telemedicine consultation with patient 07/12/2025 4:15 PM EDT Telemedicine [facility] [address] [place] [address] Wilfrido Haynes MD [address] [place] [address] [facility] Start: 06-20-2025 Influenza vaccination Influenza Vacc ine (#1) [facility] Start: 06-08-2025 Evaluation of diagnostic study results [facility] Start: 03-29-2025 End: 03-29-2025 Patient encounter procedure 03/29/2025 8:30 AM EDT Office Visit [facility] [address] [place] [address] Sruthi Keys DO [address] [facility] [place] [phone] [facility] Start: 06-20-2024 COVID-19 Vaccine ( season) COVID-19 Vaccine ( season) [facility] Start: 06-20-2024 Influenza vaccination Influenz a Vaccine (Season Ended) [facility] Start: 06-07-2024 Yearly Adult Physical Yearly Adult P hysical [facility] Start: 06-05-2024 COVID-19 Vaccine (#1) COVID-19 Vacci ne (#1) [facility] Comment on above: Postponed from 09/30 (Patient Refused) Start: 06-05-2024 Depression Screening Depression Scre ening [facility] Start: 06-05-2024 DTaP/Tdap/Td Vaccine s (1 - Tdap) DTaP/Tdap/Td Vaccines (1 - Tdap) [facility] Comment on above: Postponed from 03/31 (Patient Refused) Start: 06-05-2024 Hepatitis B Vaccines (1 of 3 - 3-dose series) Hepatitis B Vaccines (1 of 3 - 3-dose series) [facility] Comment on above: Postponed from 03/31 (Patient Refused) Start: 06-05-2024 MMR Vaccines (1 of 1 - Standard series) MMR Vaccines (1 of 1 - Standard series) [facility] Comment on above: Postponed from 03/31 (Patient Refused) Start: 04-30-2024 End: 04-30-2024 Patient encounter procedure 04/30/2024 10:30 AM EDT Appointment [facility] [address] [place] [address] [facility] Start: 03-29-2024 End: 03-29-2024 Patient encounter procedure 03/29/2024 4:00 PM EDT Office Visit [facility] [address] [place] [phone] Sruthi Keys DO [address] [facility], [address] [place] [id number] [facility] Start: 03-29-2024 End: 03-29-2025 25-hydroxyvitamin D3 [Mass/volume] in Serum or Plasma Vitamin D 25-Hydroxy,Total (for eval of Vitamin D levels) Lab Routine Fatigue, unspecified type Expected: 03/29/2024 (Approximate), Expires: 03/29/2025 [facility] Work Phone: Comment on above: Expected: 03/29/2024 (Approximate), Expires: 03/29/2025 Start: 03-29-2024 End: 03-29-2025 CBC panel - Blood by Automated count CBC Lab Routine Routine health maintenance Expected: 03/29/2024 (Approximate), Expires: 03/29/2025 [facility] Work Phone: Comment on above: Expected: 03/29/2024 (Approximate), Expires: 03/29/2025 Start: 03-29-2024 End: 03-29-2025 Cobalamin (Vitamin B12) [Mass/volume] in Serum or Plasma Vitamin B12 Lab Routine Fatigue, unspecified type Expected: 03/29/2024 (Approximate), Expires: 03/29/2025 [facility] Service Area Work Phone: Comment on above: Expected: 03/29/2024 (Approximate), Expires: 03/29/2025 Start: 02-25-2024 End: 02-25-2024 Patient encounter procedure 02/25/2024 11:00 AM EDT Office Visit [facility] [address] [place] [phone] Sruthi Keys DO [address] [facility], [address] [place] [id number] [facility] Start: 02-24-2024 End: 02-24-2024 Patient encounter procedure 02/24/2024 8:30 AM EDT Appointment [facility] [address] [place] [address] [facility] Start: 02-17-2024 End: 02-16-2025 Basic metabolic 2000 panel - Serum or Plasma [facility] Service Area Work Phone: Comment on above: Expected: 02/17/2024 (Approximate), Expires: 02/16/2025 Start: 02-17-2024 End: 02-16-2025 Hemoglobin A1c/Hemoglobin.total in Blood [facility] Work Phone: Comment on above: Expected: 02/17/2024 (Approximate), Expires: 02/16/2025 Start: 02-17-2024 End: 02-16-2025 Holter monitor study Holter or Event Demo Coordinator Cardiac Services Routine Orthostatic hypotension Postural dizziness with presyncope Expected: 02/17/2024, Expires: 02/16/2025 [facility] Work Phone: Comment on above: Expected: 02/17/2024 , Expires: 02/16/2025 Start: 02-17-2024 End: 02-16-2025 Magnesium [Mass/volume] in Serum or Plasma [facility] Work Phone: Comment on above: Expected: 02/17/2024 (Approximate), Expires: 02/16/2025 Start: 02-17-2024 End: 02-16-2025 Tsh With Reflex To Free T4 If Abnormal [facility] Work Phone: Comment on above: Expected: 02/17/2024 (Approximate), Expires: 02/16/2025 Start: 06-20-2023 COVID-19 Vaccine ( season) COVID-19 Vaccine () [facility] Start: 06-20-2023 Influenza vaccination Influenza Vacc ine (#1) [facility] Start: 06-06-2023 End: 06-05-2024 CBC panel - Blood by Automated count CBC Lab Routine Annual physical exam Screening for deficiency anemia Expected: 06/06/2023 (Approximate), Expires: 06/05/2024 [facility] Comment on above: Expected: 06/06/2023 (Approximate), Expires: 06/05/2024 Start: 06-06-2023 End: 06-05-2024 Comprehensive metabolic 1998 panel - Serum or Plasma Comprehensive metabolic panel Lab Routine Annual physical exam Expected: 06/06/2023 (Approximate), Expires: 06/05/2024 [facility] Comment on above: Expected: 06/06/2023 (Approximate), Expires: 06/05/2024 Start: 06-06-2023 End: 06-05-2024 Hepatitis C virus Ab [Presence] in Serum or Plasma by Immunoassay Hepatitis C antibody Lab Routine Annual physical exam Need for hepatitis C screening test Expected: 06/06/2023 (Approximate), Expires: 06/05/2024 [facility] Comment on above: Expected: 06/06/2023 (Approximate), Expires: 06/05/2024 Start: 06-06-2023 End: 06-05-2024 HIV 1+2 Ab+HIV1 p24 Ag [Presence] in Serum or Plasma by Immunoassay HIV-1 and HIV-2 Antigen-Antibody Screen Lab Routine Annual physical exam Screening for HIV (human immunodeficiency virus) Expected: 06/06/2023 (Approximate), Expires: 06/05/2024 [facility] [employer] [facility] Work Phone: Comment on above: Expected: 06/06/2023 (Approximate), Expires: 06/05/2024 Start: 06-06-2023 End: 06-05-2024 Lipid 1996 panel - Serum or Plasma Lipid panel Lab Routine Annual physical exam Screening for cholesterol level Expected: 06/06/2023 (Approximate), Expires: 06/05/2024 [facility] Comment on above: Expected: 06/06/2023 (Approximate), Expires: 06/05/2024 Start: 06-06-2023 End: 06-06-2023 Patient encounter procedure 06/06/2023 8:20 AM EDT Office Visit [facility] [address] [place] [address] Brooklyn Byrne, SUPERVISING PRODUCER - LEAD COOK [address] [facility] [place] [address] [facility] Start: 2020 HPV Vaccines (1 - 3-dose standard series) HPV Vaccines (1 - 3-dose standard series) [facility] Start: 2015 DTaP/Tdap/Td Vaccine s (1 - Tdap) DTaP/Tdap/Td Vaccines (1 - Tdap) [facility] Start: 2012 DTaP/Tdap/Td Vaccine s (1 - Tdap) DTaP/Tdap/Td Vaccines (1 - Tdap) [facility] Start: 2012 Hepatitis B Vaccines (1 of 3 - 19+ 3-dose series) Hepatitis B Vaccines (1 of 3 - 19+ 3-dose series) [facility] Start: 2011 Hepatitis C screening Hepatitis C Sc reening [facility] Start: 2006 Varicella vaccination Varicell a Vaccines (1 of 2 - 13+ 2-dose series) [facility] Start: 2005 Depression Screening Depression Scre ening [facility] Start: 1994 MMR Vaccines (1 of 1 - Standard series) MMR Vaccines (1 of 1 - Standard series) [facility] Start: 1994 Varicella vaccination Varicell a Vaccines (1 of 2 - 2-dose childhood series) [facility] Start: 1993 COVID-19 Vaccine (#1) COVID-19 Vacci ne (#1) [facility] Start: 1993 Hepatitis B Vaccines (1 of 3 - 3-dose series) Hepatitis B Vaccines (1 of 3 - 3-dose series) [facility] Start: 1993 HIV screening HIV Screening [facility] Start: 1993 Yearly Adult Physical Yearly Adult P hysical [facility] End: 02-24-2024 Holter monitor study [facility] Service Area Work Phone: Comment on above: Once for 1 Occurrenc es starting 02/24/2024 until 02/24/2024 End: 12-11-2025 XR Cervical spine AP and Lateral XR CERV GENERAL 2V AP/LAT Radiology Routine Cervical disc disorder with radiculopathy 1 Occurrences starting 11/11/2024 until 12/11/2025 [facility] Work Phone: Comment on above: 1 Occurrences starti ng 11/11/2024 until 12/11/2025 Payers Date Payer Category Payer Self-pay 2022 Managed Care (Private) [facility] Member Subscriber Plan / Payer (Effective 2022-Present) Name: Yolanda Buck Relation to Subscriber: Self Name: Yolanda Buck Payer ID: Not on file Type: Not on file Address: [place] [id number] 2017 Unknown [id number] 2017 Unknown [id number] 1995 Unknown [id number] 2.16.840.1.306390.3.579.2. 732 Unknown [id number] 2.16.840.1.514305.3.579.2. 462 Unknown [id number] 2.16.840.1.207445.3.579.2. 462 Unknown [id number] 2.16.840.1.702438.3.579.2. 462 Unknown [id number] 2.16.840.1.632571.3.579.2. 462 Unknown [id number] 2.16.840.1.329265.3.579.2. 462 Unknown [id number] 2.16.840.1.284092.3.579.2. 462 Unknown [id number] 2.16.840.1.371128.3.579.2. 462 Unknown [id number] 2.16.840.1.807633.3.579.2. 462 Unknown [id number] 2.16.840.1.634578.3.579.2. 462 Unknown [id number] 2.16.840.1.579992.3.579.2. 462 Unknown [id number] 2.16.840.1.672788.3.579.2. 462 Unknown [id number] 2.16.840.1.197789.3.579.2. 462 Unknown [id number] 2.16.840.1.373066.3.579.2. 462 Unknown [id number] 2.16.840.1.174947.3.579.2. 462 Unknown [id number] 2.16.840.1.848094.3.579.2. 462 Unknown [id number] 2.16.840.1.570965.3.579.2. 462 Unknown [id number] 2.16.840.1.996417.3.579.2. 462 Unknown [id number] 2.16.840.1.714247.3.579.2. 462 Unknown [id number] 2.16.840.1.996559.3.579.2. 462 Unknown [id number] 2.16.840.1.656367.3.579.2. 462 Social History Date Type Detail Facility Start: 02-17-2024 End: 12-06-2024 Tobacco smoking status TXIS Never smoked tobacco [facility] Start: 02-09-2020 End: 02-06-2024 Alcohol intake Current drinker of alcohol (finding) [facility] Start: 02-09-2020 End: 05-10-2025 Alcohol intake [facility] Start: 1995 Sex Assigned At Not on file [facility] Start: 06-06-2023 End: 05-10-2025 Gender identity Not on file [facility] Start: 02-09-2024 Adolescent depression screening assessment 0 [facility] Start: 05-27-2023 End: 03-29-2024 Exposure to SARS-CoV-2 (event) Not sure [facility] Start: 02-06-2024 End: 02-17-2024 Tobacco use and exposure Smokeless tobacco non-user [facility] Work Phone: Start: 02-17-2024 End: 05-21-2025 Alcoholic beverage intake Ex-drinker (finding) [facility] Work Phone: Start: 02-14-2024 End: 02-24-2024 Exposure to SARS-CoV-2 (event) Unable to assess [facility] Start: 02-06-2024 Alcohol Comment few drinks occassionally [facility] Start: 1995 Sex Assigned At Male [facility] NEGATED: Highlighted rowStart: NINF History of tobacco use Passive smoker [facility] Work Phone: Functional Status Date Assessment Result Facility 05-10-2025 Patient Health [facility] ionnaire 2 item (PHQ-2) [Reported] [facility] Work Phone: Clinical Notes 06-02-2023 to 05-10-2025 Wilfrido Haynes MD - 05/10/2025 10:45 AM EDT Note Date & Type Note Facility 05-10-2025 History of Present illness Narrative Images from the original note were not included. Sinus & Skull Base Surgery Chief Complaint: Sphenoid mass History Of Present Illness: Reason For Visit: Yolanda Gentile presents to me for a self-referred new patient visit for evaluation of a sphenoid mass. He has been having pain in the back of his head for about 16 months. This began after an event when he was at work and had a near-syncopal event. Ever since that event, he has had pain in the back of his head and top of his head along with dizziness, lightheadedness, face, jaw, and ear pain predominantly on the right as well as sinus issues. I reviewed an emergency department record from February 06, 2024. His diagnoses at the time of that visit was near syncope and hypokalemia. He was recently diagnosed with POTS. He is planning to see a new car sales manager next month. He is planning to see a temporomandibular joint specialist later today. There is some suspicion that a TMJ issue could be causing his ear related symptoms. He underwent an MRI in [address] sinus in 2024. The studies demonstrated a finding posterior to the right sphenoid. Main Symptoms: Patient has anterior nasal drainage. Off and on. Patient has posterior nasal drainage. Off and on. Patient does not have nasal airway obstruction. Patient has facial pain. Ofe-orbital (more often). Temples (more often). Patient has facial pressure. Ofe-orbital (more often). Temples (more often). Patient has decreased sense of smell. Decreased 50 % of normal. Can be normal at time. Associated Symptoms: Patient has headaches. Constant, daily Patient has throat clearing. ? Recent related to cold. Patient has coughing. ? Recent related to cold. Patient does not have dysphonia. Patient does not have nasal bleeding. Medications currently on for sinonasal symptoms: None. Medications tried in the past for sinonasal symptoms: Ipratropium Other Pertinent Medical Conditions: Patient does not have asthma. Patient does not have aspirin sensitivity. Patient does not have migraines. Has seen neurology for his neck. Patient has history of allergy testing. When: 2024 (nothing of significance by his report) Patient does not have history of IT. Patient does not have history of sinus surgery. Patient does not have history of nasal fracture. The patient has imaging of sinuses. CT sinus/facial bone 02/24/25; MRI brain 04/15/24. See Results/Data section below. Active Problems: Problem List[1] Past Medical History: He has no past medical history on file. Surgical History: He has a past surgical history that includes Anterior cruciate ligament repair (2010). Family History: Family History[2] Social History: He reports that he has never smoked. He has never been exposed to tobacco smoke. He has never used smokeless tobacco. He reports that he does not currently use alcohol. He reports that he does not use drugs. Allergies: Patient has no known allergies. Current Meds: Current Medications[3] Vitals: Visit Vitals Wt 88 kg (194 lb) BMI 26.31 kg/m Smoking Status Never BSA 2.11 m Physical Exam: CONSTITUTIONAL: Vitals reviewed in nursing chart, well developed, well nourished. RESPIRATION: Breathing comfortably, no stridor. CV: No clubbing/cyanosis/edema in hands. EYES: EOM Intact, sclera normal. NEURO: Alert and oriented times 3, Cranial nerves 2-12 intact and symmetric bilaterally. HEAD AND FACE: Skin with no masses or lesions, sinuses nontender to palpation. SALIVARY GLANDS: Parotid and submandibular glands normal bilaterally. EARS: Normal external ears, external auditory canals, and TMs to otoscopy, normal hearing to whispered voice. NOSE: External nose midline, anterior rhinoscopy is normal with limited visualization to the anterior aspect of the inferior turbinates (see nasal endoscopy). ORAL CAVITY/OROPHARYNX/LIPS: Normal mucous membranes, normal floor of mouth/tongue/OP, no masses or lesions are noted. NECK/LYMPH: No LAD, no thyroid masses. SINONASAL ENDOSCOPY (CPT 08617): To better evaluate the patient's symptoms, sinonasal endoscopy is indicated. After discussion of risks and benefits, and topical decongestion and anesthesia, an endoscope was used to perform nasal endoscopy on each side. A time out identifying the patient, the procedure, the location of the procedure and any concerns was performed prior to beginning the procedure. Findings: Examination of the right nasal cavity revealed no evidence of purulence or polyposis at the middle meatus or sphenoethmoid recess. Examination of the left nasal cavity revealed no evidence of purulence or polyposis at the middle meatus or sphenoethmoid recess. He has a septal deviation to the left. Results/Data: I personally reviewed his CT sinus from February 24, 2025 and an MRI brain from April 15, 2024. There were no significant inflammatory changes in his sinuses. The region of concern was posterior to the right sphenoid. I personally reviewed the MRI brain with and without contrast dated 04/15/2024. Again visualized was the region of concern posterior to the right sphenoid. Provider Impressions: 1. Headaches, facial pain and pressure 2. Rhinorrhea 3. Decreased sense of smell 4. Recent throat clearing, coughing 5. Temporomandibular joint issues 6. 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 POTS Discussion: Yolanda Buck Seferino and I discussed his symptoms. 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 I would recommend observation in regard to this finding as I do not think that it is driving his symptoms. I asked him to complete the workup for suspected temporomandibular joint issues as well as his cardiology workup. What he is describing in the back of his head would be extremely unlikely to be driven by his sinuses and we discussed this together specifically the nerve supply in that region versus the nerve supply to the sinuses. I would like to see him back in about 2 months after these other workups have been completed to discuss next steps. He was amenable to this and all questions were answered. Patient Discussion/Summary: Welcome to Dr. Wilfrido Haynes's clinic. He is an ENT physician that specializes in nose, sinus, and skull base disorders. Dr. Wilfrido Haynes's office number is [phone]. Please call this number to contact his care team regardless of which office you use to access care. This number is the most direct way to communicate with all the members of the care team. His care team includes: Clinical Trials Manager: Zenaida Dickson Available to receive calls Friday through Friday from 8:00 am until 4:25 pm She can help you with scheduling of appointments and any general, non-medical questions about the practice Primary nurse: Whit Atkinson, RN, BSN Available to receive calls Friday through Friday from 8:00 am until 4:25 pm Whit is also Dr. Haynes's targeteer and will assist you with planning and scheduling of your surgery during her office hours Christin Grimes RN, BSN Available to receive calls Friday through from 8:00 am until 4:25 pm Rhinology Nurse Practitioner: Christin Alexis CNP (sees patients in [facility], and [facility]) She works collaboratively with Dr. Haynes. If a more urgent appointment is needed she is a wonderful resource. Sebas Grant MD (sees patients in [place] and [facility]) Huy Lombardi MD (sees patients in [facility], [facility], and [place]) Dr. Haynes's partners in the division of Rhinology For your convenience, Dr. Haynes sees patients at [facility] and [facility] [place]. While we try to make your appointments as convenient as possible, occasionally a visit to another location may be necessary to provide the best care for you. We look forward to working with you to meet your healthcare goals. Scribe and Provider Attestation By signing my name below, I Mitch Tyshawn Salgueroibe, attest that this documentation has been prepared under the direction and in the presence of Wilfrido Haynes MD. All medical record entries made by the scribe were at the direction of Wilfrido Haynes MD or personally dictated by Wilfrido Haynes MD. I, Wilfrido Haynes MD, have reviewed the chart and agree that the record accurately reflects my personal performance of the history, physical exam, discussion and plan. Signature: Wilfrido Haynes MD [1] There is no problem list on file for this patient. [2] Family History Problem Relation Name Age of Onset No Known Problems Mother Hypertension Father Hyperlipidemia Father Diabetes Father's Brother [3] Current Outpatient Medications: ipratropium (Atrovent) 21 mcg (0.03 %) nasal spray, Administer 2 sprays into each nostril every 12 hours for 7 days., Disp: 30 mL, Rfl: 0 documented in this encounter [facility] Work Phone: 04-26-2025 Procedure note [facility] 02-25-2025 Radiology Diagnostic study note [facility] Imaging Services [address] [place] [address] [id number] Sinus/Facial Bone MR#: [id number] Acct: [id number] Name: YOLANDA BUCK Rep #: [id number] : 1995 M 29 From: Christian Barlow MD PCP: Dr. Lucia Montes MD Status: REG CL I Study:Sinus/Facial Bone Date of Exam: Exam# [id number] Ordering Dr: Carlos Javier MD PROCEDURE: SINUS/FACIAL [...] appearing sinus disease as above. Reading Location: [facility] CC: Dr. Lucia Montes MD; Dr. Carlos Javier MD ~ Machine Iii Coremaker: Signed [facility] 12-06-2024 Evaluation note Diagnosis Onset Date Resolution Carpal tunnel syndrome of right wrist acute December 06, 025 3:15pm Cervical radiculopathy acute Fe bruary 2024 3:15pm Cervical spondylosis acute uary 2024 3:15pm Ulnar nerve neuropathy acute [facility] 2024 3:15pm [facility] Work Phone: 1(898) 712-205801-23-2025 NoteHNO ID: [id number] Author: MARY LI PA-C Service: ? Author Type: Physician Dresser Tender Type: Progress Notes Filed: 11/11/2024 12:44 Note [...] sure patient imaging is available for review [facility]01-23-2025 History of Present illness Narrative* Mary [...] Health Provider or Pain Management Provider at [facility]? No If answer is YES please schedule directly with surgeon, triage does not need to be completed. Is this a self-referral Yes If not, who is the Referring Provider Is this a 2nd opinion from another spine surgeon? No Were you offered surgery? No MRI/CT/myelogram within 12 months? Yes If NO, please refer to medical spine or PCP to complete above imaging, triage does not need to be completed If YES, please ask for the name/address of the facility where the MRI/CT/myelogram was completed: [facility] MRI/CT/myelogram viewable in Epic: No If not, please provide [phone] to fax in imaging reports for review. Also, please inform patient to hand carry imaging disc to appointment. XR (spine) within 12 months: No If YES, please ask for the name/address of the facility where the XR was completed: Dr. Kim's patients: Have you had previous EMG/Nerve Conduction Study, Ultrasound, or MRI for thesesame symptoms? If YES, please ask for the name/address of the facility where they were completed: EMG [facility] Address: [address] [place] [address] Requested provider (First and Last name): Dr [...] in the last 12 months? Yes If YES then please ask for the name/address of the facility where the injections and/or physical therapy was completed PT [facility] Address: [address] [place] [address] Injections Trigger point shoulder R [facility] Address: [address] [place] [address] Have you tried any other kinds of non-surgical treatments in the last 12 months? (For example: NSAIDS, muscle relaxants, analgesics, oral steroids, Chiropractor, Acupuncture): Gabapentin Muscle relaxants 4. Are you currently taking daily prescribed narcotic medications for your current symptoms (For example Oxycodone, Hydrocodone, Tramadol, Morphine, Other)? No 5. Have you had previous spinal surgery for this same symptoms? No If YES please ask for the name of facility/address of where the surgery was completed: Additional Comments [phone] (Home Phone) [facility] NoteHNO ID: [id number] Author: ?, ?, ? Service: ? Author Type: ? Type: Progress Notes Filed: 11/11/2024 12:44 Note Text: Patient name: Yolanda Buck Are you being referred by a Center for Spine Health Provider or Pain Management Provider at [facility]? No If answer is YES please schedule directly with surgeon, triage does not need to be completed. Is this a self-referral Yes If not, who is the Referring Provider Is this a 2nd opinion from another spine surgeon? No Were you offered surgery? No MRI/CT/myelogram within 12 months? Yes If NO, please refer to medical spine or PCP to complete above imaging, triage does not need to be completed If YES,? please ask for the name/address of the facility where the MRI/CT/myelogram was completed: [facility] MRI/CT/myelogram viewable in [facility]: No If not, please provide [phone] to fax in imaging reports for review. Also, please inform patient to hand carry imaging disc to appointment. XR (spine) within 12 months: No If YES,? please ask for the name/address of the facility where the XR was completed: Dr. Kim's patients: Have you had previous EMG/Nerve Conduction Study, Ultrasound, or MRI for these same symptoms? If YES,? please ask for the name/address of the facility where they were completed: EMG [facility] Address: [address] [place] [address] Requested provider (First and Last name): Dr [...] in the last 12 months? Yes If YES then please ask for the name/address of the facility where the injections and/or physical therapy was completed PT [facility] Address: [address] [place] [address] Injections Trigger point shoulder R [facility] Address: [address] [place] [address] Have you tried any other kinds of non-surgical treatments in the last 12 months? (For example: NSAIDS, muscle relaxants, analgesics, oral steroids, Chiropractor, Acupuncture): Gabapentin Muscle relaxants 4. Are you currently taking daily prescribed narcotic medications for your current symptoms (For example Oxycodone, Hydrocodone, Tramadol, Morphine, Other)? No 5. Have you had previous spinal surgery for this same symptoms? No If YES? please ask for the name of facility/address of where the surgery was completed: Additional Comments [phone] (Home Phone)[facility]06-10-2024 History of Present illness Narrative* Sruthi Keys, [...] Keep appointment with ENT [facility] Work Phone: 1(609) 769-863006-10-2024 Miscellaneous Notes* Addendum Note - Sruthi Keys DO - 03/29/2024 4:00 PM EDTAddended by: SRUTHI KEYS on: 03/29/2024 04:28 PM Modules accepted: Level of Service documented in this encounterUnDay[facility] Work Phone: 1(380) 607-216406-10-2024 Note* Addendum Note - Sruthi Keys DO - 03/29/2024 4:00 PM EDTAddended by: SRUTHI KEYS on: 03/29/2024 04:28 PM Modules accepted: Level of Service [facility] Work Phone: 1(894) 825-511505-24-2024 History of Present illness Narrative* Mireya Tyler MD - 03/12/2024 11:30 AM EDT Subjective Patient ID: Yolanda Gentile is a 28 y.o. male who presents [...] ENT. Jonna Tyler MD documented in this [facility] Work Phone: 1(694) 872-383105-08-2024 History of Present illness Narrative* Sruthi Keys DO - 02/25/2024 11:00 AM EDT Subjective [...] and affect normal. Assessment/Plan or Dr.Kara Devi ([place])-chiropractors Consider massotherapy Be mindful of posture and [...] 4 weeks for mood documented in this [facility] Work Phone: 1(258) 741-467104-30-2024 History of Present illness Narrative* Sruthi Keys, DO - 02/17/2024 10:30 AM EDT Subjective Patient ID: Seferino Buck is a 28 y.o. male who presents for an establishing visit and ED follow up. Presents with significant other. [facility] ED Follow up Location: [facility] ED Date: 02/06/2024 1 week ago (Friday) he had a presyncopal episode at work. He works for [employer] so is active at work. He reports [...] by changing lifestyle to healthier. Concerned about tsqakdt-EAO-4: 3, MERA-7: 11 Feels better when he [...] up in 4-6 weeks [facility] Work Phone: 1(187) 253-159704-30-2024 Instructions* Patient Instructions* Sruthi Keys DO - [...] up in 4-6 weeks [facility] Work Phone: 1(623) 673-281008-23-2023 Telephone encounter Note* Telephone Encounter - Kasey Cornejo MA - 06/11/2023 8:25 AM EDT Spoke to patient, his father Oscar will pick these up for him. [id number] Telephone encounter Note* Telephone Encounter - Mireille May MA - 06/11/2023 8:25 AM EDT See new TE patient needs to picker tender helper a copy of labs. [facility] [id number] Miscellaneous Notes* Telephone Encounter - Kasey Cornejo MA - 06/11/2023 8:25 AM EDT Spoke to patient, his father Oscar will pick these up for him. * Telephone Encounter - Mireille May MA - 06/11/2023 8:25 AM EDT See new TE patient needs to picker tender helper a copy of labs. * Telephone Encounter - Diamond Swann - 06/11/2023 7:57 AM EDT Name of caller: Yolanda Buck Contact phone number: [phone] Relationship to Patient: Patient Provider: Maximo Mathis Practice: [facility] Chief Complaint/Reason for Call: Caller is needing his blood results re sent to a different email: [email or web address] Best time of day caller can be reached: any Patient advised that office/PCP has 24-48 business hours to return their call: yes documented in this encounterSPomerene [id number] Telephone encounter Note* Telephone Encounter - Diamond Swann - 06/11/2023 7:57 AM EDT Name of caller: Yolanda Buck Contact phone number: [phone] Relationship to Patient: Patient Provider: Maximo Mathis Practice: [facility] Chief Complaint/Reason for Call: Caller is needing his blood results re sent to a different email: [email or web address] Best time of day caller can be reached: any Patient advised that office/PCP has 24-48 business hours to return their call: yes [facility] [id number] Evaluation + Plan note* Assessment & Plan Note - COLBY Zheng CNP - 06/06/2023 8:55 AM EDTAssociated Problem(s): Orthostatic hypotension Orthostatic blood pressures + , check cmp, cbc, increase sodium and water intake up to 2.5 L daily. [facility] [id number] Miscellaneous Notes* Assessment & Plan Note - COLBY Zheng CNP - 06/06/2023 8:55 AM EDTAssociated Problem(s): Orthostatic hypotension Orthostatic blood pressures + , check cmp, cbc, increase sodium and water intake up to 2.5 L daily. documented in this encounterSPomerene [id number] History of Present illness Narrative* COLBY Zheng [...] Labs Only, and Annual Exam [place] for [facility] dept, [facility] for about 11 years, , expecting 1st [...] son, ramos retriever - susana and a sao tomean buckley- rosieand 's matthew- [facility] department. 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 Social Determinants of Health Financial Resource Strain: [...] lb 6.4 oz (89.5 kg) Height: 6' 0.05 (1.83 m) Physical Exam Vitals reviewed. Constitutional: [...] 67 Standing 98/78 83 documented in this [facility]08-18-2023 Instructions* Patient Instructions* COLBY Zheng CNP - 06/06/2023 8:20 AM EDT Increase salt intake, increase fluid intake up to 2.5 L daily. * Attachments The following attachments cannot be sent through Care Everywhere. * Orthostatic Hypotension (Kosovan) documented in this [facility]08-14-2023 Telephone encounter Note* Telephone Encounter - Ariella Beasley RN - 06/02/2023 12:40 PM EDT S: The patient is calling the [facility] about B: This has been present [...] physician for this Protocols used: Dizziness - [id number] [facility] [id number] Miscellaneous Notes* Telephone Encounter - Ariella Coreas RN - 06/02/2023 12:40 PM EDT S: The patient is calling the [facility] about B: This has been present [...] physician for this Protocols used: Dizziness - [id number] documented in this encounterSPomerene HospitalEvaluation note* Diagnosis Annual physical exam- Primary [...] specified viral diseases documented in this encounter [facility]Eval[facility]be [facility] note* Diagnosis Postural dizziness with presyncope- Primary Orthostatic hypotension [facility]al[facility] Other follow-up examination Overweight with body mass index (BMI) of 26 to 26.9 in adult Middle ear effusion, bilateral documented in this encounter [facility] Work Phone: Evaluation note* Diagnosis Orthostatic hypotension Postural dizziness with presyncope documented in this encounter [facility] Work Phone: Evaluation note* Diagnosis Anxiety- Primary Anxiety state, unspecified Postural dizziness with presyncope Tension headache Acute reaction to stress Unspecified acute reaction to stress documented in this encounter [facility] Work Phone: Evaluation note* Diagnosis Eustachian tube dysfunction, right- Primary documented in this encounter [facility] Work Phone: Evaluation note* Diagnosis Anxiety- Primary Anxiety state, unspecified Overweight with body mass index (BMI) of 26 to 26.9 in adult Pressure sensation in both ears Middle ear effusion, bilateral Routine health maintenance Unspecified examination Fatigue, unspecified type documented in this encounter [facility] Work Phone: Evaluation note* Diagnosis Cervical disc disorder with radiculopathy- Primary Brachial neuritis or radiculitis nos documented in this encounter [facility]Evalubeebe [facility] noteNo assessment information availableWTrumbull Memorial Hospital Work Phone: Evaluation note* Diagnosis Deviated nasal septum- Primary Benign neoplasm of sphenoid bone Frequent headaches documented in this encounter [facility] Work Phone: Instructions* Attachments The following attachments cannot be sent through Care Everywhere. * Eustachian tube problems (Kosovan) documented in this encounterDayton [facility] Work Phone: Reason for referral (narrative)* Diagnostic Procedure Only (Routine) - New Request Specialty Diagnoses / Procedures Referred By Wan pena Referred To Contact XR IMAGING Diagnoses Cervical disc disorder with radiculopathy Procedures XR CERV GENERAL 2V AP/LAT RADEX SPINE CERVICAL 2 OR 3 VIEWS Mary Li PA-C [address] [place] [address] [place] [id number] Referral ID Status Reason Start Date Expiration Date Visits Requested Visits Authorized [id number] New Request Auto-Generat ed Referral 11/11/2024 12/11/2025 1 1 [facility] (narrative)No reason for referral information availableWTrumbull Memorial Hospital Work Phone: Summary Purpose Family History No Family History Records Found Relationship Condition Age at Onset Recorded Date/T esha father Malignant neoplasm Unknown Advance Directives No Advanced Directives Records FoundNo Advanced Directives Records FoundNo Advanced Directives Records FoundNo Advanced Directives Records Found Reason for Referral Specialty Diagnoses / Procedures Referred By Contac t Referred To Contact Cardiology Diagnoses Orthostatic hypotension Postural dizziness with presyncope Procedures Holter or Event Demo Coordinator Sruthi Keys, [address] [facility] [place] [address] Referral ID Status Reason Start Date Expiration Date V isits Requested Visits Authorized [id number] Pending Review 02/17/2024 02/16/2025 1 1 Referral ID Status Reason Start Date Expiration Date V isits Requested Visits Authorized [id number] Authorized 02/17/2024 02/16/2025 1 1 Chief Complaint and Reason for Visit Chief Complaint Admit Date NUMBNESS AND TINGLING RT ARM October 10:22am NUMBNESS AND TINGLING RT ARM October 1:05pm Cervical radiculopathy December 06 3:15pm SINUSITIS February 24, 2025 6:14am Reason for Visit Admit Date Carpal tunnel syndrome of right wrist Fe bruary 2024 3:15pm Cervical radiculopathy December 06 3:15pm Cervical spondylosis December 06, 2024 3:15pm 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 Chief Complaint Admit Date SINUSITIS February 24, 2025 6:14am Chief Complaint Admit Date SINUSITIS February 24, 2025 6:14am E ORDER April 23, 2025 7:07a m VASOVAGAL SYNDROME April 26, 2025 9:17a m Chief Complaint Admit Date SINUSITIS February 24, 2025 6:14am E ORDER April 23, 2025 7:07a m VASOVAGAL SYNDROME April 26, 2025 9:17a m VASOVAGAL SYNDROME April 26, 2025 5:50p m Chief Complaint Admit Date SINUSITIS February 24, 2025 6:14am E ORDER April 23, 2025 7:07a m VASOVAGAL SYNDROME April 26, 2025 9:17a m VASOVAGAL SYNDROME April 26, 2025 5:50p m TMJ/RX HERE June 07, 2025 3: 30pm ABN TILT TABLE (RENATA) June 08, 2025 2:56pm Additional Source Comments Reason for Visit (unrecogniz ed section and content) Reason Onset Date Comments Dizziness 06/02/2023 Reason Comments New Patient Dizziness Labs Only Annual Exam Reason Onset Date Comments Other 06/11/2023 Specialty Diagnoses / Procedures Referred By Contac t Referred To Contact Cardiology Diagnoses Orthostatic hypotension Postural dizziness with presyncope Procedures Holter or Event Demo Coordinator Sruthi Keys DO [address] [facility] [place] [address] Referral ID Status Reason Start Date Expiration Date V isits Requested Visits Authorized [id number] Authorized 02/17/2024 02/16/2025 1 1 Reason Comments Ear Discomfort Right ear pain x1.5 week. Was told that he had fluid on the ear, was using something that caused the ears a lot of pain. Stopped using that. Noise causes pain on that side. Reason Comments New Patient Visit 2nd opinion on mri/c t scan Care Teams (unrecognized sec tion and content) Linux Unix System Administrator Relationship Specialty Start Date End Date Ender Corral DO [address] [place] [id number] PCP - General 02/09/20 Linux Unix System Administrator Relationship Specialty Start Date End Date Maximo Mathis MD [address] [place] [address] PCP - General Family Medicine 06/05/23 [employer] Unix System Administrator Relationship Specialty Start Date End Date Maximo Mathis MD [address] [place] [address] PCP - General Family Medicine 06/05/23 Linux Unix System Administrator Relationship Specialty Start Date End Date Sruthi Keys, DO [address] [facility] [place] [address] PCP - General Family Medicine 02/09/24 Linux Unix System Administrator Relationship Specialty Start Date End Date Sruthi Keys DO [address] [facility] [place] [address] PCP - General Family Medicine 02/09/24 Linux Unix System Administrator Relationship Specialty Start Date End Date Sruthi Keys, DO [address] [facility] [place] [address] PCP - General Family Medicine 02/09/24 Linux Unix System Administrator Relationship Specialty Start Date End Date Sruthi Keys DO [address] [facility] [place] [address] PCP - General Family Medicine 02/09/24 Team [...] Lucia Montes MD Other Provider Active Start: Sky shah 2024 Dr. Mary Lou Brito MD Attending [...] April 01, 2025 End: April 01, 2025 Team Status: Active Member Role/Relationship Status Tari Montes MD Primary Care Provider Active Team Status: Inactive Member Role/Relationship Status Tari Montes MD Primary Care Provider Active St art: February 24, 2025 End: February 24, 2025 Dr. Carlos Javier MD Attending Provider Activ e Start: February 24, 2025 End: February 24, 2025 Dr. Carlos Javier MD Referring Provider Activ e Start: February 24, 2025 End: February 24, 2025 Team Status: Inactive Member Role/Relationship Status Tari Montes MD Primary Care Provider Active St art: April 01, 2025 End: April 01, 2025 Lucia Montes MD Attending Provider Active Start : April 01, 2025 End: April 01, 2025 Lucia Montes MD Referring Provider Active Start : April 01, 2025 End: April 01, 2025 Team Status: Inactive Member Role/Relationship Status Tari Montes MD Primary Care Provider Active St art: April 23, 2025 End: April 23, 2025 Lucia Montes MD Attending Provider Active Start : April 23, 2025 End: April 23, 2025 Lucia Montes MD Referring Provider Active Start : April 23, 2025 End: April 23, 2025 Team Status: Active Member Role/Relationship Status Dates Lucia Montes MD Primary Care Provider Active St art: April 26, 2025 Lucia Montes MD Attending Provider Active Start : April 26, 2025 Lucia Montes MD Referring Provider Active Start : April 26, 2025 Team Status: Inactive Member Role/Relationship Status Tari Montes MD Primary Care Provider Active St art: April 26, 2025 End: April 26, 2025 Lucia Montes MD Attending Provider Active Start : April 26, 2025 End: April 26, 2025 Lucia Montes MD Referring Provider Active Start : April 26, 2025 End: April 26, 2025 Team Status: Active Member Role/Relationship Status Tari Montes MD Primary Care Provider Active St art: April 26, 2025 Lucia Montes MD Referring Provider Active Start : April 26, 2025 Lucia Montes MD Other Provider Active Start: 2024 Dr. Shay Jiang MD Attending Provider Active S tart: April 26, 2025 Linux Unix System Administrator Relationship Specialty Start Date End Date Sruthi Keys DO [address] [facility] [place] [address] PCP - General Family Medicine 02/09/24 Team Status: Active Member Role/Relationship Status Tari Montes MD Primary Care Provider Active St art: June 07, 2025 JOSEFA DYER Attending Provider Active Start: June 07, 2025 JOSEFA DYER Referring Provider Active Start: June 07, 2025 Team Status: Inactive Member Role/Relationship Status Tari Montes MD Primary Care Provider Active St art: June 08, 2025 End: June 08, 2025 Lucia Montes MD Referring Provider Active Start : June 08, 2025 End: June 08, 2025 Dr. Shay Jiang MD Attending Provider Active S tart: June 08, 2025 End: June 08, 2025 (unrecognized sect ion and content) No Status Records FoundNo Status Records FoundNo Status Records FoundNo Status Records Found INFORMATION SOURCE (unrecogn ized section and content) DATE CREATED AUTHOR 06/12/2023 [facility] DATE CREATED AUTHOR AUTHOR'S ORGANIZ ATION 09/16/2024 [facility] DATE CREATED AUTHOR AUTHOR'S ORGANIZ ATION 11/13/2024 [facility] DATE CREATED AUTHOR AUTHOR'S ORGANIZ ATION 07/12/2025 [facility] Source Comments (unrecognize d section and content) In the event this informatio n is protected by the Federal Confidentiality of Alcohol and Drug Abuse Patient Records regulations: The Federal rules restrict any use of the information to criminally investigate or prosecute any alcohol or drug abuse patient.[facility] Goals (unrecognized section and content) Goals may be documented in a n alternate sectionGoals may be documented in an alternate sectionGoals may be documented in an alternate sectionGoals may be documented in an alternate sectionGoals may be documented in an [...] BE BASED ON THE PRIMARY CLINICAL RECORDS. [facility]. provides no warranty or guarantee of the accuracy or completeness of information in this document.
== END | disposition home or self-care (01) ==
LOC: CVS 07:57
PROVIDERS: PCP Family Medicine; Referring Provider Internal Medicine Cardiovascular Disease; Visit Provider Internal Medicine Cardiovascular Disease
DX: R55 Syncope and collapse (principal); R94.09 Abnormal results of other function studies of central nervous system
CPT/HCPCS: 93306

== ENCOUNTER 2025-08-01 10:27 | Outpatient (RCR) | payer OTHER, SELFPAY ==
--- NOTE | 2025-08-01 11:20 | HP.PTEVAL ---
Patient's Visit Information Visit Information Visit Information: YOLANDA HIGGINS is a 30 year old M referred to Physical Therapy by MANISHA RIVERO with a diagnosis of chronic TMJ pain. Date of Evaluation: 08/01/25 Physical Therapist: GIOVANNA PinedoT, OCS, CSCS Visit Plan Frequency: 2x /Week Duration: 4-6 Weeks Plan: 2x/week for 4-6 IE: HEP: continue jaw isometrics, add cervical retraction and retraction with R rotation 10 each 3x/day adn R UT streetch 30 4x daily. Postural focus and activity modificaiton. treat with : US R masseter, US R subocc mm near c1 c2, STM to each of these and pterygoids and manual cervical traction and R jaw mobs., progress to cervical deep flexor strength, postural strength to HEP, may do TENS to jaw or neck if painful at rest. Subjective Subjective: Previously treated 3 weeks ago for TMJ and was 70% improved. That infomration still pertinenet as he was discharged and went back to doctor and has been sent back for more therapy. Radjusted mouth guard but did not help. Now L side starting to hurt again maybe due to mouthguard. has a cavity on the right side. Jaw and neck pain still problematic. 4-5/10 on typical day on R TMJ and back into neck and B masseeter area. 75% better overall, slightly better than 3 weeks ago. pain is not constant anymore. has bad days but not sure why. he thinks maybe sugar issue and nearly passed out Friday. Doctor knows(Simon) and shuldbe getting call back. No idea what makes jaw/neck hurt. Stilla avoids heavy chewing foods. Favors L side more than R. Old information still appropriate from previous chart. Still doing Home : isometric jaw, ROM deviation and cervical ROM ext and scap circles but laid off neck due to L scapular pain in the last week. Dentist: adjusted mouth guard and gave script for PT. Pain R jaw: Pain Intensity (Out of 10): 4 Pain Intensity Range: 2 and 8 Objective Objective: Forward head posture is slight today, co tightneess in R neck with R rotation eend range, not L, pain L UT area with retraction as well as in R c1 c2 area. cervical eextension causes pain L UT and repeated worsens R subocc area.Tenderness tightness palpable in B masseter R>L and into R UT and subocc mm are tender mildly. R cervical upper level pain with ret/xt and R rot mobs. Tender to the touch. jaw opening is 43 mm without deviation but quick L deviation upon closing from fully open initially, no painful and did not audibly pop today with 5 attempts but did give slight pain. Jaw deviation 13 mm B and no pain. pterygoids are tender R>L. reflexes bi and tri WNL 2/3, no c/o arm numbness and UE arom WFL. strength 4+/5 UE without myotomal abnormalities. Goals Goal 1:: close jaw from full opening without deviaiton L Goal Time Frame: 4-6 Weeks Goal 2:: Pain in jaw and neck 95% better adn 1/10 at worst. Goal Time Frame: 4-6 Weeks Goal 3:: eat chewy foods without effecting comfort Goal Time Frame: 4-6 Weeks Goal 4:: I home mgmt of condition Goal Time Frame: 4-6 Weeks Rehabilitation Potential Physical Therapy Diagnosis: neck and TMj pain and limitations causing some qol deficits. Rehabilitation Potential: Fair Anticipated Interventions Patient/Client Instruction: Educate patient on: Condition and Plan of Care For the Purpose of:: To decrease pain, To increase ROM, To improve nutrient delivery to tissue, To improve muscle performance and motor function, To increase tolerance to activity/condition/position and To improve ability of physical actions for home/community/work/leisure Therapeutic Exercise to Include: Strength training, Postural training, Flexibilty training, Passive ROM and Active ROM For the Purpose of:: To decrease pain, To increase ROM, To improve nutrient delivery to tissue, To improve muscle performance and motor function and To improve ability of physical actions for home/community/work/leisure Manual Therapy Techniques to Include: Petrissage, Mobilization, Passive ROM and Soft tissue mobilization For the Purpose of:: To decrease pain, To decrease swelling/inflammation, To improve nutrient delivery to tissue and To improve muscle performance and motor function TENS: Yes Ultrasound (thermal/non thermal): Yes (jaw, neck thermal) For the Purpose of:: To decrease pain and To improve nutrient delivery to tissue Text: Thank you for the opportunity to evaluate your patient. For Medicare and Medicare HMO plans, please review the plan of care and approve it. It will need to be FAXED BACK to us at [phone] for Medicare purposes. For Medicare only, by signing this I certify the plan of care. Please let me know if there are questions or concerns regarding this plan of care. Physician Signature: Date:
--- NOTE | 2025-10-03 08:25 | HP.PT.NRP ---
Patient Information Patient Information: YOLANDA HIGGINS was seen in my office for initial evaluation on 08/01/25. The following Plan of Care was established for this patient: POC Established Initial Frequency: 2x /Week Initial Duration: 4-6 Weeks Anticipated Interventions Patient/Client Instruction: Educate patient on: Condition and Plan of Care For the Purpose of:: To decrease pain, To increase ROM, To improve nutrient delivery to tissue, To improve muscle performance and motor function, To increase tolerance to activity/condition/position and To improve ability of physical actions for home/community/work/leisure Therapeutic Exercise to Include: Strength training, Postural training, Flexibilty training, Passive ROM and Active ROM For the Purpose of:: To decrease pain, To increase ROM, To improve nutrient delivery to tissue, To improve muscle performance and motor function and To improve ability of physical actions for home/community/work/leisure Manual Therapy Techniques to Include: Petrissage, Mobilization, Passive ROM and Soft tissue mobilization For the Purpose of:: To decrease pain, To decrease swelling/inflammation, To improve nutrient delivery to tissue and To improve muscle performance and motor function TENS: Yes Ultrasound (thermal/non thermal): Yes (jaw, neck thermal) For the Purpose of:: To decrease pain and To improve nutrient delivery to tissue Last Seen Last Seen: This patient was last seen in our office 08/01/25. Pertinent comments regarding their Physical therapy will appear below: Pt seeen for IE and then did not attend any further visits. At this point, it has been over 2 months and i will discontinue from my care. At this point I will be discontinuing this patient from physical therapy. I would be happy to see this patient again in the future if found appropriate by the physician. Thank you! Pepe Moura, DPT, OCS, CSCS
== END 2025-08-01 19:00 | disposition home or self-care (01) ==
LOC: PT 10:27
PROVIDERS: PCP Family Medicine
DX: M26.629 Arthralgia of temporomandibular joint, unspecified side (principal)
CPT/HCPCS: 97110; 97161

== ENCOUNTER → 2025-08-02 | Outpatient (CLI) | payer OTHER, SELFPAY | END | disposition home or self-care (01) | LOC: MTLAB 08:02 | PROVIDERS: PCP Family Medicine; Referring Provider Family Medicine; Visit Provider Family Medicine | DX: R20.9 Unspecified disturbances of skin sensation (principal); R23.1 Pallor | CPT/HCPCS: 36415; 83036; 83525 ==

== ENCOUNTER → 2025-09-01 | Outpatient (CLI) | payer OTHER, SELFPAY ==
[2025-09-01 10:44] LABS: Hematocrit 45.7 % (40-54); Hemoglobin 15.3 g/dL (13.0-16.5); Immature Granulocytes Count 0.010 X10^3/uL (0.0-0.0); Mean Corp Hgb Conc 33.5 g/dL (32-36); Mean Corpuscular Volume 90.7 fL (80-94); Mean Platelet Vol. 10.9 fl (6.2-12.0); NRBC Flagged by Analyzer 0 % (0-5); Platelet Count 230 K/mm3 (150-450); RBC Distribution Width CV 12.4 % (11.6-14.6); RBC Distribution Width SD 41.0 fl (35.1-43.9); Red Blood Count 5.04 M/mm3 (4.6-6.2); White Blood Count 6.2 K/mm3 (4.4-11.0)
[2025-09-01 11:06] LABS: AST(SGOT) 34 U/L (<=37); Alanine Aminotransfer ALT/SGPT 53 U/L (<=46); Albumin, Serum 4.9 g/dL (3.5-5.0); Alkaline Phosphatase 59 U/L (40-129); Anion Gap 11 (5-15); BUN 15 mg/dL (4-19); BUN/Creat Ratio 14.7 RATIO (10-20); CORTISOL AM 13.00 ug/dL (6.02-18.40); Calcium,Total 9.8 mg/dL (7.6-11.0); Carbon Dioxide 24.4 mmol/L (21.0-32.0); Chloride 105 mmol/L (98-108); Globulin 2.6 g/dL (2.2-4.2); Glucose 94 mg/dL (70-99); Potassium 4.4 mmol/L (3.3-5.1)
[2025-09-01 11:36] LABS: Magnesium 2.4 mg/dL (1.5-2.2)
[2025-09-02 13:08] LABS: ANTINUCLEAR ANTIBODIES DIRECT Negative (Negative)
[2025-09-08 19:08] LABS: Dilute Russell Viper Venom 42.2 sec (0.0-47.0); Estrogen, Total, Serum 91 pg/mL (56-213); Interpretation Comment: (.); PTT-LA 37.6 sec (0.0-43.5); Serotonin, Serum 109 ng/mL (31-207); Zinc, Plasma or Serum 85 ug/dL (44-115)
== END | disposition home or self-care (01) ==
PROVIDERS: PCP Family Medicine; Referring Provider Family Medicine; Visit Provider Family Medicine
DX: R42 Dizziness and giddiness (principal); R55 Syncope and collapse; R53.83 Other fatigue
CPT/HCPCS: 36415; 80053; 82088; 82533; 82672; 83735; 84100; 84260; 84403; 84630; 85025; 85652; 86038; 86200; 86431

== ENCOUNTER → 2025-09-14 | Outpatient (CLI) | payer OTHER, SELFPAY ==
[2025-09-14 10:26] LABS: Prothrombin Time (Protime)PT. 13.3 SECONDS (11.7-14.9)
[2025-09-14 10:27] LABS: Partial Thromboplast Time 27.1 Seconds (24.1-36.2)
[2025-09-16 14:08] LABS: Immunoglobulin A 194 mg/dL (90-386)
== END | disposition home or self-care (01) ==
LOC: MTLAB 08:17
PROVIDERS: PCP Family Medicine; Referring Provider Family Medicine; Visit Provider Family Medicine
DX: R10.9 Unspecified abdominal pain (principal); R79.1 Abnormal coagulation profile
CPT/HCPCS: 36415; 82784; 83516; 85610; 85670; 85730; 86255